=== PATIENT | male | born 1940 | race Native Hawaiian/Other Pacific Islander ===

== ENCOUNTER 2016-08-28 16:03 | Inpatient (IN) | payer MEDICARE, MEDICAID ==
[2016-08-28 17:57] LABS: BASO # 0.2 K/uL (0.0-0.2); BASO % 0.7 % (0.0-2.0); EOS # 1.3 K/uL (0.0-0.7); EOS % 5.7 % (0.0-4.0); HEMOGLOBIN 13.7 g/dL (12.0-18.0); LYMPH % 42.7 % (20.0-40.0); MEAN CELL VOLUME 90.6 fL (80.0-94.0); MEAN CORPUSCULAR HEMOGLOBIN 29.7 pg (27.0-31.0); MEAN CORPUSCULAR HGB CONC 32.8 g/dL (33.0-37.0); MEAN PLATELET VOLUME 8.6 fL (7.2-11.7); MONO # 0.5 K/uL (0.0-0.8); MONO % 2.1 % (0.0-10.0); NEUT # 11.4 K/uL (1.8-7.0); NEUT % 48.8 % (50.0-75.0); NRBC % 0.1 % (0.0-2.0); RBC 4.61 Mil/uL (4.40-5.90); RED CELL DISTRIBUTION WIDTH 14.4 % (11.5-14.5); WHITE BLOOD COUNT 23.4 K/uL (4.8-10.8)
[2016-08-28] MEDS ORDERED: DiphenhydrAMINE 50 mg/ml Inj IVP STA ×2 (17:57→18:52)
--- NOTE | 2016-08-28 17:58 | C.PDOC ---
History Of Present Illness Patient sent to ED for evaluation of extremely pruritic rash on torso & arms. As per PMD Dr. Ryan Finch, patient recently diagnosed with new onset lymphoma. He denies chest pain, SOB, abdominal pain, nausea/vomiting/diarrhea. Time Seen by Provider: 08/28/16 16:37 Chief Complaint (Nursing): Abnormal Skin Integrity History Per: Patient, Other (PMD) History/Exam Limitations: no limitations Onset/Duration Of Symptoms: Days Quality Of Symptoms: Itching Severity: Moderate Past Medical History Reviewed: Historical Data, Nursing Documentation, Vital Signs Vital Signs: Last Vital Signs Temp 97.6 F 09/03/16 00:00 Pulse 58 L 09/03/16 00:00 Resp 20 09/03/16 00:00 BP 134/75 09/03/16 00:00 Pulse Ox 95 09/03/16 11:05 Family History: States: Other Other Family History: noncontributory - Social History Hx Tobacco Use: No Hx Alcohol Use: No Hx Substance Use: No - Immunization History Hx Influenza Vaccination: No Hx Pneumococcal Vaccination: No Review Of Systems Except As Marked, All Systems Reviewed And Found Negative. Constitutional: Negative for: Fever, Chills Cardiovascular: Negative for: Chest Pain, Palpitations Respiratory: Negative for: Cough, Shortness of Breath Gastrointestinal: Negative for: Nausea, Vomiting, Abdominal Pain, Diarrhea Skin: Positive for: Rash Physical Exam - Physical Exam Appears: Well, Non-toxic, In Acute Distress (in mild distress, actively scratching ) Skin: Other (diffuse maculopapular rash on arms, torso, neck, blanching, nonvesicular) Oral Mucosa: Moist Cardiovascular: Rhythm Regular Respiratory: Normal Breath Sounds, No Rales, No Rhonchi, No Wheezing Gastrointestinal/Abdominal: Normal Exam, Bowel Sounds, Soft, No Tenderness Extremity: Bilateral: Atraumatic, Normal ROM Pulses: Left Dorsalis Pedis: Normal, Right Dorsalis Pedis: Normal Neurological/Psych: Oriented x3 ED Course And Treatment - Laboratory Results Result Diagrams: 09/03/16 07:03 09/03/16 07:03 ECG: Interpreted By Me, Viewed By Me (sinus bradycardia 56 bpm, RBBB, normal axis, no acute ST/T wave changes) ECG Interpretation: No Acute Changes O2 Sat by Pulse Oximetry: 95 (RA) Pulse Ox Interpretation: Normal - Radiology CXR: Interpreted by Me, Viewed By Me (no infiltrates/effusions, right sided mass /density?) Progress Note: Blood work, UA ordered and reviewed. Patient given IV solumedrol , IV Benadryl, IV pepcid. IV NS bolus given. - Physician Consult Information Physician Contacted: Elida Finch Outcome Of Conversation: Spoke with Dr. Ryan Finch, agrees with admission for new onset lymphoma, CLL, paraneoplastic rash. Would like Dr. Gray for oncology. Disposition - Disposition Disposition: HOSPITALIZED Disposition Time: 11:59 Condition: STABLE - Clinical Impression Clinical Impression: Lymphoma, CLL (chronic lymphocytic leukemia), Pruritic rash Decision To Admit - Pt Status Changed To: Hospital Disposition Of: Inpatient - Admit Certification Admit to Inpatient:: After my assessment, the patient will require hospitalization for at least two midnights. This is because of the severity of symptoms shown, intensity of services needed, and/or the medical risk in this patient being treated as an outpatient. - InPatient: Physician Admission Certification: I certify that this patient requires 2 or more midnights of care for the following reason:: see notes - . Bed Request Type: Regular Admitting Physician: Elida Finch Patient Diagnosis: Lymphoma, CLL (chronic lymphocytic leukemia), Pruritic rash
[2016-08-28] MEDS ORDERED: DiphenhydrAMINE 50 mg/ml Inj ONE ×2 (18:00→19:14)
[2016-08-28 18:05] LABS: INR 1.4; PROTHROMBIN TIME 15.8 SECONDS (9.7-12.2)
[2016-08-28 18:42] LABS: ALB/GLOB RATIO 1.1 (1.0-2.1); ALT/SGPT 24 U/L (21-72); AST/SGOT 33 U/L (17-59); BLOOD UREA NITROGEN 21 mg/dL (9-20); GFR AFRICAN-AMERICAN > 60; GFR NON-AFRICAN AMERICAN > 60
[2016-08-28 18:43] LABS: CALCIUM 7.3 mg/dl (8.6-10.4)
[2016-08-28 18:51] LABS: CK-MB 0.79 ng/mL (0.0-3.38)
[2016-08-28] MEDS ORDERED: Sodium Chloride 0.9% 500 ML IV ONE ×2 (18:54→19:14)
[2016-08-28 19:31] LABS: URINE BILIRUBIN NEGATIVE (NEGATIVE); URINE BLOOD 1+ (NEGATIVE); URINE CLARITY Clear (Clear); URINE COLOR Yellow (YELLOW); URINE GLUCOSE (UA) NORMAL (Normal); URINE LEUKOCYTE ESTERASE NEG Leu/uL (Negative); URINE NITRATE NEGATIVE (NEGATIVE); URINE PROTEIN 1+ mg/dL (NEGATIVE); URINE UROBILINOGEN NORMAL mg/dL (0.2-1.0)
--- NOTE | 2016-08-28 23:08 | CP.PCM.HP ---
History of Present Illness - History of Present Illness History of Present Illness: 76-year-old [place] male non-smoker non-EtOH abuser with history of CLL status post chemotherapy felt better history of hypertension came to the office 3 days 4 days ago with the tumor on his right side underwent an MRI which revealed possible lymphoma or some kind of malignancy the patient was brought to the hospital patient is too weak to walk cannot walk much patient is severe itching all over patient's WBC was 23 started on IV Rocephin and IV steroids patients to be seen by Dr. harrison and surgical consult with Dr. Aguilar for possible biopsy patient denies any fever denies any chills no nausea no vomiting spoke to the daughter the was at the bedside doctor on the phone Present on Admission - Present on Admission Any Indicators Present on Admission: No Past Patient History - Past Social History Smoking Status: Never Smoked - HEMATOLOGICAL/ONCOLOGICAL Hx Chemotherapy: Yes Hx Leukemia: Yes (CLL) - MUSCULOSKELETAL/RHEUMATOLOGICAL Hx Falls: No - PSYCHIATRIC Hx Substance Use: No - SURGICAL HISTORY Other/Comment: Patient states he had prostate [id number]. - ANESTHESIA Hx Anesthesia: Yes Hx Anesthesia Reactions: No Meds Allergies/Adverse Reactions: Allergies Allergy/AdvReac Type Severity Reaction Status Date / Time No Known Allergies Allergy Verified 08/28/16 19:19 Physical Exam - Constitutional Appears: Well - Head Exam Head Exam: ATRAUMATIC, NORMAL INSPECTION, NORMOCEPHALIC - Eye Exam Eye Exam: EOMI, Normal appearance, PERRL Pupil Exam: NORMAL ACCOMODATION, PERRL - ENT Exam ENT Exam: Mucous Membranes Moist, Normal Exam - Neck Exam Neck exam: Positive for: Normal Inspection - Respiratory Exam Respiratory Exam: Clear to Auscultation Bilateral, NORMAL BREATHING PATTERN - Cardiovascular Exam Cardiovascular Exam: REGULAR RHYTHM - GI/Abdominal Exam GI & Abdominal Exam: Normal Bowel Sounds, Soft. absent: Tenderness - Rectal Exam Rectal Exam: Deferred - Exam Exam: NORMAL INSPECTION - Neurological Exam Neurological exam: Oriented x3 Results - Vital Signs Recent Vital Signs: Last Vital Signs Temp 99.7 F H 08/28/16 20:32 Pulse 59 L 08/28/16 20:31 Resp 18 08/28/16 20:31 BP 104/60 08/28/16 20:31 Pulse Ox 98 08/28/16 20:31 - Labs Result Diagrams: 08/29/16 07:34 08/29/16 07:34 Labs: Laboratory Results - last 24 hr 08/28/16 19:18 Urine Color Yellow Urine Clarity Clear Urine pH 5.0 Ur Specific [place] 1.025 Urine Protein 1+ H Urine Glucose (UA) Normal Urine Ketones Negative Urine Blood 1+ H Urine Nitrate Negative Urine Bilirubin Negative Urine Urobilinogen Normal Ur Leukocyte Esterase Neg Urine WBC (Auto) < 1 Urine RBC (Auto) 3 Assessment & Plan (1) Acute frontal sinusitis Status: Acute (2) Chronic lymphocytic leukemia Status: Acute (3) Dehydration Status: Acute (4) Dyspnea Status: Acute (5) Facial abscess Status: Acute (6) Facial asymmetry Status: Acute (7) HTN (hypertension) Status: Acute (8) Leukopenia Status: Acute (9) Neutropenic sepsis Status: Acute (10) Pneumonia Status: Acute (11) Submandibular lymphadenitis Status: Acute (12) Submandibular lymphadenopathy Status: Acute - Assessment and Plan (Free Text) Plan: IV Rocephin Steroid Protonix Lovenox Dr. Isaac Rizzo
[2016-08-29 08:04] LABS: BASO % 0.2 % (0.0-2.0); EOS # 0.5 K/uL (0.0-0.7); EOS % 2.2 % (0.0-4.0); HEMOGLOBIN 13.1 g/dL (12.0-18.0); LYMPH # 12.4 K/uL (1.0-4.3); LYMPH % 56.1 % (20.0-40.0); MEAN CELL VOLUME 89.2 fL (80.0-94.0); MEAN CORPUSCULAR HEMOGLOBIN 29.6 pg (27.0-31.0); MEAN CORPUSCULAR HGB CONC 33.2 g/dL (33.0-37.0); MEAN PLATELET VOLUME 9.2 fL (7.2-11.7); MONO # 0.2 K/uL (0.0-0.8); MONO % 0.9 % (0.0-10.0); NEUT % 40.6 % (50.0-75.0); NRBC % 0.1 % (0.0-2.0); RBC 4.41 Mil/uL (4.40-5.90); RED CELL DISTRIBUTION WIDTH 14.5 % (11.5-14.5); WHITE BLOOD COUNT 22.2 K/uL (4.8-10.8)
[2016-08-29 08:07] LABS: ALBUMIN 3.2 g/dL (3.5-5.0)
[2016-08-29 08:10] LABS: ALB/GLOB RATIO 1.1 (1.0-2.1); AST/SGOT 25 U/L (17-59); BLOOD UREA NITROGEN 24 mg/dL (9-20); GFR AFRICAN-AMERICAN > 60; GFR NON-AFRICAN AMERICAN > 60
[2016-08-29 08:11] LABS: ALT/SGPT 34 U/L (21-72); CALCIUM 8.2 mg/dl (8.6-10.4)
--- NOTE | 2016-08-29 08:54 | RAD ---
PROCEDURE: CHEST RADIOGRAPH, 1 VIEW HISTORY: leukocytosis COMPARISON: 06/13/2015 FINDINGS: LUNGS: Mild venous congestion. Right hilar prominence. Small nodular density projecting over the right upper to mid lung zone may represent confluence of shadows with ribs and vessels. Right paratracheal prominence may represent prominent vasculature. PLEURA: No pneumothorax or pleural fluid seen. CARDIOVASCULAR: Normal. OSSEOUS STRUCTURES: No significant abnormalities. VISUALIZED UPPER ABDOMEN: Normal. OTHER FINDINGS: None. IMPRESSION: Mild venous congestion. Right hilar prominence. Small nodular density projecting over the right upper to mid lung zone may represent confluence of shadows with ribs and vessels. Clinical correlation and/or repeat x-ray in a 6 month interval may be helpful. Right paratracheal prominence may represent prominent vasculature.
--- NOTE | 2016-08-29 10:21 | CP.PCM.CON ---
History of Present Illness - History of Present Illness History of Present Illness: Covering Dr. Gray 76 year old male with a history of CLL on chemotherapy with Dr. Gray (last treated last week), admitted with rash, found to have lymphadenopathy, chest wall mass, and pulmonary nodules. The patient admits to weakness. He denies shortness of breath and chest pain. Past medical history: HTN, CLL Past surgical history: None Family history: Denies hematologic and oncologic problems Social history: Denies tobacco, alcohol, and illicit drug use. Allergies: NKA Review of systems: All remaining review of systems including HEENT, cardiovascular, respiratory, gastrointestinal, genitourinary, musculoskeletal, dermatologic, neurologic, and psychiatric are negative unless mentioned in the HPI. Past Patient History - Past Medical History & Family History Past Medical History?: No - Past Social History Smoking Status: Never Smoked - HEMATOLOGICAL/ONCOLOGICAL Hx Chemotherapy: Yes Hx Leukemia: Yes (CLL) - MUSCULOSKELETAL/RHEUMATOLOGICAL Hx Falls: No - GENITOURINARY/GYNECOLOGICAL Hx Prostate Problems: No - PSYCHIATRIC Hx Psychophysiologic Disorder: No Hx Substance Use: No - SURGICAL HISTORY Hx Surgeries: Yes Other/Comment: Patient states he had prostate [id number]. - ANESTHESIA Hx Anesthesia: Yes Hx Anesthesia Reactions: No Hx Malignant Hyperthermia: No Has any member of the family had a problem w/ anesthesia?: No Meds Allergies/Adverse Reactions: Allergies Allergy/AdvReac Type Severity Reaction Status Date / Time No Known Allergies Allergy Verified 08/28/16 19:19 - Medications Medications: Current Medications Diphenhydramine HCl (Benadryl) 25 mg PO Q6 [facility] Last Admin: 08/29/16 06:04 Dose: 25 mg Heparin Sodium (Porcine) (Heparin) 5,000 units SC Q12 [facility] Ceftriaxone Sodium 1 gm/ (Sodium Chloride) 100 mls @ 100 mls/hr IVPB DAILY [facility] Physical Exam - Head Exam Head Exam: ATRAUMATIC - Eye Exam Eye Exam: Normal appearance - ENT Exam ENT Exam: Mucous Membranes Dry - Respiratory Exam Respiratory Exam: NORMAL BREATHING PATTERN - Cardiovascular Exam Cardiovascular Exam: +S1, +S2 - GI/Abdominal Exam GI & Abdominal Exam: Normal Bowel Sounds - Extremities Exam Extremities exam: Positive for: normal inspection Results - Vital Signs Recent Vital Signs: Last Vital Signs Temp 97.4 F L 08/29/16 08:15 Pulse 51 L 08/29/16 08:15 Resp 20 08/29/16 08:15 BP 101/61 08/29/16 08:15 Pulse Ox 100 08/29/16 08:15 - Labs Result Diagrams: 08/29/16 07:34 08/29/16 07:34 Labs: Laboratory Results - last 24 hr 08/28/16 08/29/16 08/29/16 19:18 07:34 07:34 WBC 22.2 H RBC 4.41 Hgb 13.1 Hct 39.4 MCV 89.2 MCH 29.6 MCHC 33.2 RDW 14.5 Plt Count 144 MPV 9.2 Neut % (Auto) 40.6 L Lymph % (Auto) 56.1 H [place] % (Auto) 0.9 Eos % (Auto) 2.2 Baso % (Auto) 0.2 Neut # 9.0 H Lymph # 12.4 H [place] # 0.2 Eos # 0.5 Baso # 0.0 Sodium 135 Potassium 4.4 Chloride 101 Carbon Dioxide 23 Anion Gap 16 BUN 24 H Creatinine 1.1 Est GFR ( Amer) > 60 Est GFR (Non-Af Amer) > 60 Random Glucose 171 H Calcium 8.2 L Total Bilirubin 0.9 AST 25 ALT 34 Alkaline Phosphatase 67 Total Protein 6.3 Albumin 3.2 L Globulin 3.0 Albumin/Globulin Ratio 1.1 Urine Color Yellow Urine Clarity Clear Urine pH 5.0 Ur Specific [place] 1.025 Urine Protein 1+ H Urine Glucose (UA) Normal Urine Ketones Negative Urine Blood 1+ H Urine Nitrate Negative Urine Bilirubin Negative Urine Urobilinogen Normal Ur Leukocyte Esterase Neg Urine WBC (Auto) < 1 Urine RBC (Auto) 3 Assessment & Plan (1) Chronic lymphocytic leukemia Assessment and Plan: Rash, lymphadenopathy, and mass likely related to CLL surgical evaluation for biopsy ?Richters transformation can start steroids post biopsy; suspect paraneoplastic rash from CLL outpatient f/u with Dr. Gray for treatment Status: Acute (2) Leukocytosis Assessment and Plan: with lymphocytosis secondary to CLL Status: Acute (3) Anemia Assessment and Plan: mild likely secondary to CLL and recent chemo Thank you for this interesting consult. Status: Acute
--- NOTE | 2016-08-29 11:13 | CP.PCM.PN ---
Subjective - Date & Time of Evaluation Date of Evaluation: 08/29/16 Time of Evaluation: 08:40 - Subjective Subjective: clinically same Objective - Vital Signs/Intake and Output Vital Signs (last 24 hours): Temp Pulse Resp BP Pulse Ox 97.4 F L 51 L 20 101/61 100 08/29/16 08:15 08/29/16 08:15 08/29/16 08:15 08/29/16 08:15 08/29/16 08:15 Intake and Output: 08/29/16 08/29/16 06:59 18:59 Intake Total 150 Balance 150 - Medications Medications: Current Medications Diphenhydramine HCl (Benadryl) 25 mg PO Q6 [facility] Last Admin: 08/29/16 06:04 Dose: 25 mg Heparin Sodium (Porcine) (Heparin) 5,000 units SC Q12 [facility] Last Admin: 08/29/16 10:53 Dose: 5,000 units Ceftriaxone Sodium 1 gm/ (Sodium Chloride) 100 mls @ 100 mls/hr IVPB DAILY [facility] Last Admin: 08/29/16 10:53 Dose: 100 mls/hr - Labs Labs: 08/29/16 07:34 08/29/16 07:34 PT 15.8 SECONDS (9.7-12.2) H 08/28/16 17:54 INR 1.4 08/28/16 17:54 APTT 28 SECONDS (21-34) 08/28/16 17:54 - Constitutional Appears: Well - Head Exam Head Exam: ATRAUMATIC, NORMAL INSPECTION, NORMOCEPHALIC - Eye Exam Eye Exam: EOMI, Normal appearance, PERRL Pupil Exam: NORMAL ACCOMODATION, PERRL - ENT Exam ENT Exam: Mucous Membranes Moist, Normal Exam - Neck Exam Neck Exam: Full ROM, Normal Inspection. absent: Lymphadenopathy - Respiratory Exam Respiratory Exam: Decreased Breath Sounds - Cardiovascular Exam Cardiovascular Exam: REGULAR RHYTHM, +S1, +S2 - GI/Abdominal Exam GI & Abdominal Exam: Soft, Diminished Bowel Sounds - Rectal Exam Rectal Exam: Deferred
[2016-08-29] MEDS ORDERED: Iohexol 240 (50 ml) PO ONE (15:15)
--- NOTE | 2016-08-29 16:00 | CP.PCM.CON ---
<Hong Ortiz - Last Filed: 08/29/16 21:12> History of Present Illness - History of Present Illness History of Present Illness: Gen Sx: Dr Rizzo Pt is a 76M with hx of CLL who presented to ED for total body rash. Pt found to have leukocytosis and there is concern for lymphoma. Pt has several enlarged lymph nodes in the neck and inguinal area. No imaging performed on this admission. Oncology is on board. Pt is more concerned with rash at this time and the constant itching. Surgery was consulted for lymph node biopsy Review of Systems - Review of Systems Systems not reviewed;Unavailable: Language Barrier Past Patient History - Past Medical History & Family History Past Medical History?: No - Past Social History Smoking Status: Never Smoked - HEMATOLOGICAL/ONCOLOGICAL Hx Chemotherapy: Yes Hx Leukemia: Yes (CLL) - MUSCULOSKELETAL/RHEUMATOLOGICAL Hx Falls: No - GENITOURINARY/GYNECOLOGICAL Hx Prostate Problems: No - PSYCHIATRIC Hx Psychophysiologic Disorder: No Hx Substance Use: No - SURGICAL HISTORY Hx Surgeries: Yes Other/Comment: Patient states he had prostate [id number]. - ANESTHESIA Hx Anesthesia: Yes Hx Anesthesia Reactions: No Hx Malignant Hyperthermia: No Has any member of the family had a problem w/ anesthesia?: No Meds Allergies/Adverse Reactions: Allergies Allergy/AdvReac Type Severity Reaction Status Date / Time No Known Allergies Allergy Verified 08/28/16 19:19 - Medications Medications: Current Medications Diphenhydramine HCl (Benadryl) 25 mg PO Q6 [facility] Last Admin: 08/29/16 12:19 Dose: 25 mg Heparin Sodium (Porcine) (Heparin) 5,000 units SC Q12 [facility] Last Admin: 08/29/16 10:53 Dose: 5,000 units Ceftriaxone Sodium 1 gm/ (Sodium Chloride) 100 mls @ 100 mls/hr IVPB DAILY [facility] Last Admin: 08/29/16 10:53 Dose: 100 mls/hr Physical Exam - Constitutional Appears: Non-toxic - Respiratory Exam Respiratory Exam: absent: Accessory Muscle Use, Respiratory Distress - Cardiovascular Exam Cardiovascular Exam: REGULAR RHYTHM. absent: Tachycardia - GI/Abdominal Exam GI & Abdominal Exam: Soft. absent: Tenderness - Skin Additional comments: diffuse rash on extensor surfaces of arms and entire torso Results - Vital Signs Recent Vital Signs: Last Vital Signs Temp 97.4 F L 08/29/16 08:15 Pulse 51 L 08/29/16 08:15 Resp 20 08/29/16 08:15 BP 101/61 08/29/16 08:15 Pulse Ox 100 08/29/16 08:15 - Labs Result Diagrams: 08/29/16 07:34 08/29/16 07:34 Labs: Laboratory Results - last 24 hr 08/28/16 08/29/16 08/29/16 19:18 07:34 07:34 WBC 22.2 H RBC 4.41 Hgb 13.1 Hct 39.4 MCV 89.2 MCH 29.6 MCHC 33.2 RDW 14.5 Plt Count 144 MPV 9.2 Neut % (Auto) 40.6 L Lymph % (Auto) 56.1 H [place] % (Auto) 0.9 Eos % (Auto) 2.2 Baso % (Auto) 0.2 Neut # 9.0 H Lymph # 12.4 H [place] # 0.2 Eos # 0.5 Baso # 0.0 Differential Comment Sodium 135 Potassium 4.4 Chloride 101 Carbon Dioxide 23 Anion Gap 16 BUN 24 H Creatinine 1.1 Est GFR ( Amer) > 60 Est GFR (Non-Af Amer) > 60 Random Glucose 171 H Calcium 8.2 L Total Bilirubin 0.9 AST 25 ALT 34 Alkaline Phosphatase 67 Total Protein 6.3 Albumin 3.2 L Globulin 3.0 Albumin/Globulin Ratio 1.1 Urine Color Yellow Urine Clarity Clear Urine pH 5.0 Ur Specific [place] 1.025 Urine Protein 1+ H Urine Glucose (UA) Normal Urine Ketones Negative Urine Blood 1+ H Urine Nitrate Negative Urine Bilirubin Negative Urine Urobilinogen Normal Ur Leukocyte Esterase Neg Urine WBC (Auto) < 1 Urine RBC (Auto) 3 Assessment & Plan - Assessment and Plan (Free Text) Assessment: 76M with questionable lymphoma; sx consulted for lymph node biopsy Plan: need for lymph node biopsy not emergent at this time can perform biopsy on thursday if pt still in house if not please have follow up as outpatient with Dr Rizzo d/w Dr So Ortiz, PGY2 - Date & Time Date: 08/29/16 Time: 21:15 <Bienvenido Rizzo - Last Filed: 09/07/16 17:16> Results - Vital Signs Recent Vital Signs: Last Vital Signs Temp 98.1 F 09/04/16 15:00 Pulse 66 09/04/16 15:00 Resp 20 09/04/16 15:00 BP 138/77 09/04/16 15:00 Pulse Ox 97 09/04/16 15:00 - Labs Result Diagrams: 09/04/16 07:51 09/04/16 07:51 Attending/Attestation - Attestation I have personally seen and examined this patient.: Yes I have fully participated in the care of the patient.: Yes I have reviewed all pertinent clinical information: Yes Notes (Text): 09/07/16 17:14 Pt was seen and examined at bedside on 09/01/16 Agree with above note and assessment Pt with Generalized Lymphadenopathy with skin rash OR for Lymph node biopsy Oncology consult. Consent Plan d/w pt and Primary team in detail Risk and benefit explained in detail.
[2016-08-29] MEDS ORDERED: Iohexol 350mg/ml 100 ML ONE (17:45)
--- NOTE | 2016-08-29 19:59 | CT ---
EXAM: CT Abdomen and Pelvis With Intravenous Contrast CLINICAL HISTORY: 76 years old, male; Condition or disease; Cancer; Other: Lymphoma; Lung condition and disease; Pneumonia; Additional info: HX cll TECHNIQUE: Axial computed tomography images of the abdomen and pelvis with intravenous contrast. This CT exam was performed using one or more of the following dose reduction techniques: automated exposure control, adjustment of the mA and/or kV according to patient size, and/or use of iterative reconstruction technique. Coronal and sagittal reformatted images were created and reviewed. CONTRAST: 100 mL of omnipaque 350 administered intravenously. COMPARISON: No relevant prior studies available. FINDINGS: Lower thorax: Hypoventilatory changes are noted at the lung bases ABDOMEN: Liver: Unremarkable. No mass. Gallbladder and bile ducts: Unremarkable. No calcified stones. No ductal dilation. Pancreas: Unremarkable. No mass. No ductal dilation. Spleen: Spleen measures 13.1 cm in cranialcaudal span. Adrenals: Unremarkable. No mass. Kidneys and ureters: Unremarkable. No solid mass. No hydronephrosis. Stomach and bowel: Unremarkable. No obstruction. No mucosal thickening. Appendix: No findings to suggest acute appendicitis. PELVIS: Bladder: Unremarkable. No mass. Reproductive: The prostate measures 3.5 x 5.6 x 5.4 cm. Prostatic calcifications are present. ABDOMEN and PELVIS: Intraperitoneal space: Unremarkable. No free air. No significant fluid collection. Retroperitoneal space: Lymph nodes are noted in the retroperitoneum. The largest is at the level of the left renal vein measuring 2.5 x 1.8 x 3.7 cm No significant fluid collection. Bones/joints: There is a focal expansion of the right ninth rib laterally There is deformity noted of the posterior aspect of the right ninth, 10th and 11th ribs which suggests previous fracture No dislocation. Soft tissues: Unremarkable. Vasculature: Unremarkable. No abdominal aortic aneurysm. Lymph nodes: There are multiple enlarged para-aortic lymph nodes. There are mesenteric lymph nodes noted inferior to the pancreatic head. External iliac adenopathy is present bilaterally. The latonya mass on the left measures 1.9 x 1.4 x 1.8 cm Inguinal lymph nodes are noted bilaterally. They measure less than 1 cm in short axis. IMPRESSION: 1. Retroperitoneal and pelvic adenopathy in this patient with known CLL. 2. Splenomegaly likely related to patient's diagnosis of CLL 3. Old rib fractures of the right posterior ninth 10th and 11th ribs EXAM: CT Chest With Intravenous Contrast CLINICAL HISTORY: 76 years old, male; Condition or disease; Cancer; Other: Lymphoma; Lung condition and disease; Pneumonia; Additional info: HX cll TECHNIQUE: Axial computed tomography images of the chest with intravenous contrast. This CT exam was performed using one or more of the following dose reduction techniques: automated exposure control, adjustment of the mA and/or kV according to patient size, and/or use of iterative reconstruction technique. Coronal and sagittal reformatted images were created and reviewed. CONTRAST: 100 mL of omnipaque 350 administered intravenously. EXAM DATE/TIME: Exam ordered 08/29/2016 2:34 PM COMPARISON: CR - CHEST TWO VIEWS (PA/LAT) 06/13/2015 11:55:57 AM FINDINGS: Lungs: There is a 7 mm pulmonary nodule in the apical segment of the right upper lobe (series 4 image 29). A pleural based nodule is noted in the apical segment of the left upper lobe measuring 5 mm (series 4 image 29). A 4 mm pulmonary nodules noted in the posterior segment of the right upper lobe (series 4 image 45). A groundglass nodular density is noted in the anterior segment of the left upper lobe inferiorly measuring 3.5 mm (series 4 image 48). A 3 mm groundglass density is noted in the anterior segment of the right upper lobe (series 4 image 51). A 4 mm nodule is noted in the anterior segment of the left upper lobe inferiorly (series 4 image 51). 2 pulmonary nodules are noted in the superior segment of the left lower lobe measuring 5 and 6 mm respectively (series 4 image 52 and 53). Coarse linear opacities are noted in the dependent portion of both lungs reflecting discoid atelectasis or scar. Pleural space: Unremarkable. No pneumothorax. No significant effusion. Heart: Unremarkable. No cardiomegaly. No significant pericardial effusion. Bones/joints: Unremarkable. No acute fracture. No dislocation. Soft tissues: Unremarkable. Vasculature: Unremarkable. No thoracic aortic aneurysm. Lymph nodes: Subcentimeter lymph nodes are noted in the prevascular space and the AP window. Enlarged subpectoral and axillary lymph nodes are noted bilaterally.. At least 11 lymph nodes are noted on the right with the largest measuring 1.4 cm in short axis. At least least 14 lymph nodes are seen in the left with the largest measuring 9 mm in short axis. IMPRESSION: 1. Multiple pulmonary nodules. An optional follow-up CT at 12 months could be performed due to the high risk of malignancy. If unchanged, no further follow-up is necessary. 2. Healed fractures of the right posterior ninth, 10th and 11th ribs. 3. Focal expansion suggested of the right ninth rib laterally. This could be related to old trauma or to the patient's diagnosis of CLL. 4. Chest wall, axillary and mediastinal adenopathy likely related to patient's diagnosis of CLL Images were attached to this report and are available at [email or web address]
[2016-08-29] MEDS: MethylPREDNISolone 40 mg Vial IV SCH (21:06)
[2016-08-30] MEDS: MethylPREDNISolone 40 mg Vial IV SCH ×2 (05:25→22:16)
[2016-08-30 06:31] LABS: BASO % 0.2 % (0.0-2.0); EOS # 2.2 K/uL (0.0-0.7); EOS % 10.3 % (0.0-4.0); HEMOGLOBIN 12.4 g/dL (12.0-18.0); LYMPH # 8.3 K/uL (1.0-4.3); LYMPH % 38.6 % (20.0-40.0); MEAN CELL VOLUME 88.1 fL (80.0-94.0); MEAN CORPUSCULAR HEMOGLOBIN 29.5 pg (27.0-31.0); MEAN CORPUSCULAR HGB CONC 33.5 g/dL (33.0-37.0); MEAN PLATELET VOLUME 8.7 fL (7.2-11.7); MONO # 0.5 K/uL (0.0-0.8); MONO % 2.5 % (0.0-10.0); NEUT # 10.4 K/uL (1.8-7.0); NEUT % 48.4 % (50.0-75.0); RBC 4.19 Mil/uL (4.40-5.90); RED CELL DISTRIBUTION WIDTH 14.8 % (11.5-14.5); WHITE BLOOD COUNT 21.5 K/uL (4.8-10.8)
[2016-08-30 07:35] LABS: ALBUMIN 3.1 g/dL (3.5-5.0)
[2016-08-30 07:38] LABS: AST/SGOT 35 U/L (17-59); GFR AFRICAN-AMERICAN > 60; GFR NON-AFRICAN AMERICAN > 60
[2016-08-30 07:39] LABS: ALT/SGPT 44 U/L (21-72); BLOOD UREA NITROGEN 19 mg/dL (9-20); CALCIUM 8.2 mg/dl (8.6-10.4)
[2016-08-30 08:12] LABS: ALB/GLOB RATIO 1.1 (1.0-2.1)
--- NOTE | 2016-08-30 20:50 | CP.PCM.PN ---
Subjective - Date & Time of Evaluation Date of Evaluation: 08/30/16 Objective - Vital Signs/Intake and Output Vital Signs (last 24 hours): Temp Pulse Resp BP Pulse Ox 99.6 F 79 20 109/64 95 08/30/16 08:36 08/30/16 08:36 08/30/16 08:36 08/30/16 08:36 08/30/16 08:36 - Medications Medications: Current Medications Diphenhydramine HCl (Benadryl) 50 mg PO Q6 [facility]PLAC[facility] BY [facility] Last Admin: 08/30/16 12:53 Dose: 50 mg Heparin Sodium (Porcine) (Heparin) 5,000 units SC Q12 [facility] Last Admin: 08/30/16 09:58 Dose: 5,000 units Methylprednisolone (Solu-Medrol) 40 mg IV Q8 REPLACED BY [facility] Last Admin: 08/30/16 05:25 Dose: 40 mg Montelukast Sodium (Singulair) 10 mg PO HS [facility] - Labs Labs: 08/30/16 06:18 08/30/16 06:18 PT 15.8 SECONDS (9.7-12.2) H 08/28/16 17:54 INR 1.4 08/28/16 17:54 APTT 28 SECONDS (21-34) 08/28/16 17:54 Assessment and Plan (1) Acute frontal sinusitis Status: Acute (2) Chronic lymphocytic leukemia Status: Acute (3) Dehydration Status: Acute (4) Dyspnea Status: Acute (5) Facial abscess Status: Acute (6) Facial asymmetry Status: Acute (7) HTN (hypertension) Status: Acute (8) Leukopenia Status: Acute (9) Neutropenic sepsis Status: Acute (10) Pneumonia Status: Acute (11) Submandibular lymphadenitis Status: Acute (12) Submandibular lymphadenopathy Status: Acute
[2016-08-31] MEDS: MethylPREDNISolone 40 mg Vial IV SCH ×3 (05:34→21:24)
--- NOTE | 2016-08-31 07:01 | CP.PCM.PN ---
Subjective - Date & Time of Evaluation Date of Evaluation: 08/31/16 Time of Evaluation: 08:40 - Subjective Subjective: clinically same Objective - Vital Signs/Intake and Output Vital Signs (last 24 hours): Temp Pulse Resp BP Pulse Ox 98.2 F 73 20 138/82 95 08/31/16 00:00 08/31/16 00:00 08/31/16 00:00 08/31/16 00:00 08/31/16 00:00 Intake and Output: 08/31/16 08/31/16 06:59 18:59 Intake Total 100 Balance 100 - Medications Medications: Current Medications Diphenhydramine HCl (Benadryl) 50 mg PO Q6 [facility] Last Admin: 08/31/16 05:34 Dose: 50 mg Heparin Sodium (Porcine) (Heparin) 5,000 units SC Q12 [facility] Last Admin: 08/30/16 22:17 Dose: 5,000 units Methylprednisolone (Solu-Medrol) 40 mg IV Q8 [facility] Last Admin: 08/31/16 05:34 Dose: 40 mg Montelukast Sodium (Singulair) 10 mg PO HS [facility] Last Admin: 08/30/16 22:17 Dose: 10 mg - Labs Labs: 08/30/16 06:18 08/30/16 06:18 PT 15.8 SECONDS (9.7-12.2) H 08/28/16 17:54 INR 1.4 08/28/16 17:54 APTT 28 SECONDS (21-34) 08/28/16 17:54 - Constitutional Appears: Well - Head Exam Head Exam: ATRAUMATIC, NORMAL INSPECTION, NORMOCEPHALIC - Eye Exam Eye Exam: EOMI, Normal appearance, PERRL Pupil Exam: NORMAL ACCOMODATION, PERRL - ENT Exam ENT Exam: Mucous Membranes Moist, Normal Exam - Neck Exam Neck Exam: Full ROM, Normal Inspection. absent: Lymphadenopathy - Respiratory Exam Respiratory Exam: Decreased Breath Sounds - Cardiovascular Exam Cardiovascular Exam: REGULAR RHYTHM, +S1, +S2 - GI/Abdominal Exam GI & Abdominal Exam: Soft, Diminished Bowel Sounds - Rectal Exam Rectal Exam: Deferred Assessment and Plan (1) Acute frontal sinusitis Status: Acute (2) Chronic lymphocytic leukemia Status: Acute (3) Dehydration Status: Acute (4) Dyspnea Status: Acute (5) Facial abscess Status: Acute (6) Facial asymmetry Status: Acute (7) HTN (hypertension) Status: Acute (8) Leukopenia Status: Acute (9) Neutropenic sepsis Status: Acute (10) Pneumonia Status: Acute (11) Submandibular lymphadenitis Status: Acute (12) Submandibular lymphadenopathy Status: Acute
[2016-09-01] MEDS: MethylPREDNISolone 40 mg Vial IV SCH ×3 (05:20→21:57)
--- NOTE | 2016-09-01 11:57 | CARD ---
APPROVED REPORT EKG Measurement Heart [id number] <Conclusion> Sinus bradycardia with premature atrial complexes Incomplete right bundle branch block Borderline ECG
--- NOTE | 2016-09-01 13:40 | CP.PCM.PN ---
Subjective - Date & Time of Evaluation Date of Evaluation: 09/01/16 Time of Evaluation: 13:40 Objective - Vital Signs/Intake and Output Vital Signs (last 24 hours): Temp Pulse Resp BP Pulse Ox 97.6 F 54 L 20 121/51 L 96 09/01/16 08:32 09/01/16 08:32 09/01/16 08:32 09/01/16 08:32 09/01/16 08:32 Intake and Output: 09/01/16 09/01/16 06:59 18:59 Intake Total 240 Balance 240 - Medications Medications: Current Medications Diphenhydramine HCl (Benadryl) 50 mg PO Q6 [facility] Last Admin: 09/01/16 11:57 Dose: 50 mg Methylprednisolone (Solu-Medrol) 40 mg IV Q8 [facility] Last Admin: 09/01/16 13:28 Dose: 40 mg Montelukast Sodium (Singulair) 10 mg PO HS [facility] Last Admin: 08/31/16 21:23 Dose: 10 mg - Labs Labs: 08/30/16 06:18 08/30/16 06:18 PT 15.8 SECONDS (9.7-12.2) H 08/28/16 17:54 INR 1.4 08/28/16 17:54 APTT 28 SECONDS (21-34) 08/28/16 17:54
--- NOTE | 2016-09-01 14:11 | CP.PCM.PN ---
<White,Laura-Alphonse - Last Filed: 09/01/16 14:09> Subjective - Date & Time of Evaluation Date of Evaluation: 09/01/16 Time of Evaluation: 14:09 - Subjective Subjective: Surgery: Dr. Rizzo Patient still with rash on forearms. Discussed lymph node biopsy with family and patient. Agreeable to biopsy on Thursday. Objective - Vital Signs/Intake and Output Vital Signs (last 24 hours): Temp Pulse Resp BP Pulse Ox 97.6 F 54 L 20 121/51 L 96 09/01/16 08:32 09/01/16 08:32 09/01/16 08:32 09/01/16 08:32 09/01/16 08:32 Intake and Output: 09/01/16 09/01/16 06:59 18:59 Intake Total 240 Balance 240 - Medications Medications: Current Medications Diphenhydramine HCl (Benadryl) 50 mg PO Q6 [facility] Last Admin: 09/01/16 11:57 Dose: 50 mg Methylprednisolone (Solu-Medrol) 40 mg IV Q8 [facility] Last Admin: 09/01/16 13:28 Dose: 40 mg Montelukast Sodium (Singulair) 10 mg PO HS [facility] Last Admin: 08/31/16 21:23 Dose: 10 mg - Labs Labs: 08/30/16 06:18 08/30/16 06:18 PT 15.8 SECONDS (9.7-12.2) H 08/28/16 17:54 INR 1.4 08/28/16 17:54 APTT 28 SECONDS (21-34) 08/28/16 17:54 - Constitutional Appears: Non-toxic, No Acute Distress, Chronically Ill - Head Exam Head Exam: ATRAUMATIC, NORMOCEPHALIC - Eye Exam Eye Exam: EOMI - ENT Exam ENT Exam: Mucous Membranes Moist - Neck Exam Neck Exam: Lymphadenopathy (left side prominent ) - Respiratory Exam Respiratory Exam: NORMAL BREATHING PATTERN. absent: Respiratory Distress - Cardiovascular Exam Cardiovascular Exam: REGULAR RHYTHM. 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 Rizzo [facility] PGY3 <Bienvenido Rizzo - Last Filed: 09/07/16 17:27> Objective - Vital Signs/Intake and Output Vital Signs (last 24 hours): Temp Pulse Resp BP Pulse Ox 98.1 F 66 20 138/77 97 09/04/16 15:00 09/04/16 15:00 09/04/16 15:00 09/04/16 15:00 09/04/16 15:00 - Labs Labs: 09/04/16 07:51 09/04/16 07:51 PT 11.1 SECONDS (9.7-12.2) 09/03/16 07:03 INR 1.0 09/03/16 07:03 APTT 23 SECONDS (21-34) 09/03/16 07:03 Attending/Attestation - Attestation I have personally seen and examined this patient.: Yes I have fully participated in the care of the patient.: Yes I have reviewed all pertinent clinical information, including history, physical exam and plan: Yes Notes (Text): 09/07/16 17:26 Pt was seen and examined at bedside on 09/01/16 Agree with above note and assessment Pt with Generalized Lymphadenopathy and Skin rash OR for Lymph node biopsy on thursday Consent NPO, IVF Plan d.w pt and Primary team in detail Risk and benefit explained in detail.
[2016-09-01 14:35] LABS: BASO # 0.2 K/uL (0.0-0.2); BASO % 0.7 % (0.0-2.0); EOS # 0.1 K/uL (0.0-0.7); EOS % 0.3 % (0.0-4.0); HEMOGLOBIN 13.6 g/dL (12.0-18.0); LYMPH # 16.7 K/uL (1.0-4.3); LYMPH % 54.5 % (20.0-40.0); MEAN CELL VOLUME 89.9 fL (80.0-94.0); MEAN CORPUSCULAR HEMOGLOBIN 28.9 pg (27.0-31.0); MEAN CORPUSCULAR HGB CONC 32.2 g/dL (33.0-37.0); MEAN PLATELET VOLUME 9.2 fL (7.2-11.7); MONO # 0.3 K/uL (0.0-0.8); MONO % 0.9 % (0.0-10.0); NEUT # 13.4 K/uL (1.8-7.0); NEUT % 43.6 % (50.0-75.0); NRBC % 0.1 % (0.0-2.0); RBC 4.69 Mil/uL (4.40-5.90); RED CELL DISTRIBUTION WIDTH 14.3 % (11.5-14.5); WHITE BLOOD COUNT 30.6 K/uL (4.8-10.8)
[2016-09-01 14:37] LABS: ALBUMIN 3.7 g/dL (3.5-5.0)
[2016-09-01 14:40] LABS: ALB/GLOB RATIO 1.1 (1.0-2.1); AST/SGOT 33 U/L (17-59); BLOOD UREA NITROGEN 22 mg/dL (9-20); GFR AFRICAN-AMERICAN > 60; GFR NON-AFRICAN AMERICAN > 60
[2016-09-01 14:41] LABS: ALT/SGPT 54 U/L (21-72); CALCIUM 8.4 mg/dl (8.6-10.4)
[2016-09-02] MEDS: MethylPREDNISolone 40 mg Vial IV SCH ×3 (05:28→21:39)
--- NOTE | 2016-09-02 13:22 | CP.PCM.PN ---
Subjective - Date & Time of Evaluation Date of Evaluation: 09/02/16 Time of Evaluation: 13:22 Objective - Vital Signs/Intake and Output Vital Signs (last 24 hours): Temp Pulse Resp BP Pulse Ox 98.1 F 58 L 20 128/72 98 09/02/16 00:00 09/02/16 00:00 09/02/16 00:00 09/02/16 00:00 09/02/16 00:00 - Medications Medications: Current Medications Diphenhydramine HCl (Benadryl) 50 mg PO Q6 [facility] Last Admin: 09/02/16 05:29 Dose: 50 mg Methylprednisolone (Solu-Medrol) 40 mg IV Q8 [facility] Last Admin: 09/02/16 05:28 Dose: 40 mg Montelukast Sodium (Singulair) 10 mg PO HS [facility] Last Admin: 09/01/16 21:57 Dose: 10 mg - Labs Labs: 09/01/16 14:18 09/01/16 14:18 PT 15.8 SECONDS (9.7-12.2) H 08/28/16 17:54 INR 1.4 08/28/16 17:54 APTT 28 SECONDS (21-34) 08/28/16 17:54
--- NOTE | 2016-09-02 13:46 | CP.PCM.PN ---
Subjective - Date & Time of Evaluation Date of Evaluation: 09/02/16 Time of Evaluation: 13:44 - Subjective Subjective: Surgery: Dr. Rizzo Patient doing well. Per nursing, no acute events overnight. Discussion with family and patient yesterday at bedside. All aware of lymph node biopsy on Thu. Objective - Vital Signs/Intake and Output Vital Signs (last 24 hours): Temp Pulse Resp BP Pulse Ox 98.1 F 58 L 20 128/72 98 09/02/16 00:00 09/02/16 00:00 09/02/16 00:00 09/02/16 00:00 09/02/16 00:00 - Medications Medications: Current Medications Diphenhydramine HCl (Benadryl) 50 mg PO Q6 [facility] Last Admin: 09/02/16 05:29 Dose: 50 mg Methylprednisolone (Solu-Medrol) 40 mg IV Q8 [facility] Last Admin: 09/02/16 05:28 Dose: 40 mg Montelukast Sodium (Singulair) 10 mg PO HS [facility] Last Admin: 09/01/16 21:57 Dose: 10 mg - Labs Labs: 09/01/16 14:18 09/01/16 14:18 PT 15.8 SECONDS (9.7-12.2) H 08/28/16 17:54 INR 1.4 08/28/16 17:54 APTT 28 SECONDS (21-34) 08/28/16 17:54 - Constitutional Appears: Well, Non-toxic, No Acute Distress - Head Exam Head Exam: ATRAUMATIC, NORMOCEPHALIC - Eye Exam Eye Exam: EOMI, Normal appearance - ENT Exam ENT Exam: Mucous Membranes Moist - Respiratory Exam Respiratory Exam: NORMAL BREATHING PATTERN. absent: Respiratory Distress - Cardiovascular Exam Cardiovascular Exam: REGULAR RHYTHM. absent: Tachycardia Assessment and Plan - Assessment and Plan (Free Text) Assessment: 76 y/o male w/ hx of CLL, now with lymphadenopathy and rash Plan: -NPO pmn except meds -LN biopsy in am -d/w family and patient -d/w Dr. Rizzo [facility] PGY3
[2016-09-03] MEDS: MethylPREDNISolone 40 mg Vial IV SCH ×3 (05:48→21:20)
[2016-09-03 07:25] LABS: PROTHROMBIN TIME 11.1 SECONDS (9.7-12.2)
[2016-09-03 07:31] LABS: ALBUMIN 3.2 g/dL (3.5-5.0)
[2016-09-03 07:33] LABS: AST/SGOT 21 U/L (17-59); GFR AFRICAN-AMERICAN > 60; GFR NON-AFRICAN AMERICAN > 60
[2016-09-03 07:34] LABS: ALB/GLOB RATIO 1.1 (1.0-2.1); ALT/SGPT 41 U/L (21-72); BLOOD UREA NITROGEN 29 mg/dL (9-20); CALCIUM 8.4 mg/dl (8.6-10.4)
[2016-09-03 07:39] LABS: BASO # 0.3 K/uL (0.0-0.2); BASO % 1.2 % (0.0-2.0); EOS # 0.1 K/uL (0.0-0.7); EOS % 0.2 % (0.0-4.0); HEMOGLOBIN 13.3 g/dL (12.0-18.0); LYMPH # 16.1 K/uL (1.0-4.3); LYMPH % 60.2 % (20.0-40.0); MEAN CELL VOLUME 91.1 fL (80.0-94.0); MEAN CORPUSCULAR HEMOGLOBIN 29.7 pg (27.0-31.0); MEAN CORPUSCULAR HGB CONC 32.6 g/dL (33.0-37.0); MEAN PLATELET VOLUME 8.7 fL (7.2-11.7); MONO # 0.1 K/uL (0.0-0.8); MONO % 0.5 % (0.0-10.0); NEUT # 10.1 K/uL (1.8-7.0); NEUT % 37.9 % (50.0-75.0); NRBC % 0.3 % (0.0-2.0); RBC 4.49 Mil/uL (4.40-5.90); RED CELL DISTRIBUTION WIDTH 14.9 % (11.5-14.5); WHITE BLOOD COUNT 26.7 K/uL (4.8-10.8)
[2016-09-03] MEDS ORDERED: Sod Polystyrene Sulf 15 gm/60 ml Oral Susp PO ONE (08:15)
[2016-09-03] MEDS ORDERED: Dextrose 50% SYRINGE Inj (50 ml) IV STA (08:15)
[2016-09-03] MEDS ORDERED: Albuterol HFA 90 mcg/actuation (8 g) INH STA (08:20)
[2016-09-03] MEDS ORDERED: Lidocaine 1% Inj (20ml) ONE (10:31)
[2016-09-03] MEDS ORDERED: Bupivacaine-Epi 0.25%-1:200,000 PF Inj ONE (10:31)
[2016-09-03] MEDS ORDERED: ceFAZolin 1 gm FROZEN Premix 1 GM/50 ML ML IVPB ONE (10:32)
[2016-09-03] MEDS ORDERED: Lactated Ringer's 1,000 ML IV ONE ×2 (10:40→11:17)
[2016-09-03] MEDS ORDERED: Propofol 10 mg/ml Inj (20 ML) ONE (10:42)
[2016-09-03] MEDS ORDERED: Midazolam 2 MG/2 ML VIAL ONE (10:42)
[2016-09-03] MEDS ORDERED: ceFAZolin IV 1 gm in Dextrose 1 GM/50 ML BAG IVPB ONE (10:45)
[2016-09-03] MEDS ORDERED: (Novolog Mix 70/30) Insulin Aspart/Insulin Aspar 100 units/ml SC ONE (10:45)
[2016-09-03] MEDS ORDERED: HYDROmorphone 0.5 mg/0.5 ml ISec IVP PRN (11:34)
[2016-09-03] MEDS ORDERED: Morphine 4 MG/ML VIAL IVP PRN (11:37)
--- NOTE | 2016-09-03 11:39 | PCM.SURG1 ---
Surgeon's Initial Post Op Note - Surgeon's Notes Surgeon: Dr. Rizzo [employer] Servicer And Installer: Anusha Linton, PGY2; Olga Lidia GROSSMAN-III Pre-Operative Diagnosis: lymphadenopathy Operative Findings: see full operative report Post-Operative Diagnosis: same Operation Performed: Excisional lymph node biopsy of right inguinal nodes Specimen/Specimens Removed: right inguinal lymph nodes Estimated Blood Loss: EBL {In ML}: 5 Date of Surgery/Procedure: 09/03/16 Time of Surgery/Procedure: 10:00
[2016-09-03 12:54] LABS: GFR AFRICAN-AMERICAN > 60; GFR NON-AFRICAN AMERICAN > 60
[2016-09-03 12:55] LABS: BLOOD UREA NITROGEN 29 mg/dL (9-20)
--- NOTE | 2016-09-03 19:41 | CP.PCM.PN ---
Subjective - Date & Time of Evaluation Date of Evaluation: 09/03/16 Objective - Vital Signs/Intake and Output Vital Signs (last 24 hours): Temp Pulse Resp BP Pulse Ox 97.1 F L 54 L 13 160/92 H 98 09/03/16 12:30 09/03/16 12:30 09/03/16 12:30 09/03/16 12:30 09/03/16 12:30 Intake and Output: 09/03/16 09/04/16 18:59 06:59 Intake Total 610 Balance 610 - Medications Medications: Current Medications Diphenhydramine HCl (Benadryl) 50 mg PO Q6 [facility] Last Admin: 09/03/16 18:21 Dose: 50 mg Methylprednisolone (Solu-Medrol) 20 mg IV Q12H [facility] Montelukast Sodium (Singulair) 10 mg PO HS [facility] Last Admin: 09/02/16 21:38 Dose: 10 mg Morphine Sulfate (Morphine) 4 mg IVP Q4 PRN PRN Reason: Pain, moderate (4-7) - Labs Labs: 09/03/16 07:03 09/03/16 12:30 PT 11.1 SECONDS (9.7-12.2) 09/03/16 07:03 INR 1.0 09/03/16 07:03 APTT 23 SECONDS (21-34) 09/03/16 07:03 Assessment and Plan (1) Acute frontal sinusitis Status: Acute (2) Chronic lymphocytic leukemia Status: Acute (3) Dehydration Status: Acute (4) Dyspnea Status: Acute (5) Facial abscess Status: Acute (6) Facial asymmetry Status: Acute (7) HTN (hypertension) Status: Acute (8) Leukopenia Status: Acute (9) Neutropenic sepsis Status: Acute (10) Pneumonia Status: Acute (11) Submandibular lymphadenitis Status: Acute (12) Submandibular lymphadenopathy Status: Acute
[2016-09-03 19:42] VITALS: RESP 20
[2016-09-04 07:55] LABS: BASO # 0.1 K/uL (0.0-0.2); BASO % 0.6 % (0.0-2.0); EOS % 0.1 % (0.0-4.0); HEMOGLOBIN 12.7 g/dL (12.0-18.0); LYMPH # 13.9 K/uL (1.0-4.3); MEAN CORPUSCULAR HEMOGLOBIN 29.6 pg (27.0-31.0); MEAN CORPUSCULAR HGB CONC 32.5 g/dL (33.0-37.0); MEAN PLATELET VOLUME 8.4 fL (7.2-11.7); MONO # 0.5 K/uL (0.0-0.8); MONO % 2.4 % (0.0-10.0); NEUT # 7.8 K/uL (1.8-7.0); NEUT % 34.9 % (50.0-75.0); NRBC % 0.1 % (0.0-2.0); RBC 4.29 Mil/uL (4.40-5.90); RED CELL DISTRIBUTION WIDTH 14.4 % (11.5-14.5); WHITE BLOOD COUNT 22.4 K/uL (4.8-10.8)
[2016-09-04 08:10] LABS: ALBUMIN 2.8 g/dL (3.5-5.0)
[2016-09-04 08:13] LABS: ALB/GLOB RATIO 1.1 (1.0-2.1); AST/SGOT 18 U/L (17-59); GFR AFRICAN-AMERICAN > 60; GFR NON-AFRICAN AMERICAN > 60
[2016-09-04 08:14] LABS: ALT/SGPT 36 U/L (21-72); BLOOD UREA NITROGEN 34 mg/dL (9-20); CALCIUM 7.6 mg/dl (8.6-10.4)
[2016-09-04 09:19] VITALS: O2SAT 97
[2016-09-04] MEDS ORDERED: Diphenhydramine 1% Cream (1 oz) TOP SCH (10:00)
--- NOTE | 2016-09-04 10:04 | CP.PCM.PN ---
<Anusha Linton - Last Filed: 09/04/16 10:00> Subjective - Date & Time of Evaluation Date of Evaluation: 09/04/16 Time of Evaluation: 09:00 - Subjective Subjective: Patient seen and examined at bedside. NAEO. Patient denies any pain at the site. Dressing is clean Objective - Vital Signs/Intake and Output Vital Signs (last 24 hours): Temp Pulse Resp BP Pulse Ox 97.8 F 60 20 117/74 97 09/04/16 09:18 09/04/16 09:18 09/04/16 09:18 09/04/16 09:18 09/04/16 09:18 Intake and Output: 09/04/16 09/04/16 06:59 18:59 Intake Total 300 Balance 300 - Medications Medications: Current Medications Diphenhydramine HCl (Benadryl) 50 mg PO Q6 [facility] Last Admin: 09/04/16 05:34 Dose: 50 mg Methylprednisolone (Solu-Medrol) 20 mg IV Q12H [facility] Last Admin: 09/03/16 21:20 Dose: 20 mg Montelukast Sodium (Singulair) 10 mg PO HS [facility] Last Admin: 09/03/16 21:22 Dose: 10 mg Morphine Sulfate (Morphine) 4 mg IVP Q4 PRN PRN Reason: Pain, moderate (4-7) - Labs Labs: 09/04/16 07:51 09/04/16 07:51 PT 11.1 SECONDS (9.7-12.2) 09/03/16 07:03 INR 1.0 09/03/16 07:03 APTT 23 SECONDS (21-34) 09/03/16 07:03 - Constitutional Appears: Well, Non-toxic, No Acute Distress - Head Exam Head Exam: ATRAUMATIC, NORMOCEPHALIC - Eye Exam Eye Exam: Normal appearance. absent: Conjunctival injection, Scleral icterus - ENT Exam ENT Exam: Mucous Membranes Moist, Normal Oropharynx - Respiratory Exam Respiratory Exam: NORMAL BREATHING PATTERN. absent: Accessory Muscle Use, Respiratory Distress - GI/Abdominal Exam GI & Abdominal Exam: absent: Distended - Extremities Exam Extremities Exam: absent: Pedal Edema Additional comments: right groin with surgical dressing c/d/i, no peripheral swelling or hematoma - Neurological Exam Neurological Exam: Alert, Awake, Oriented x3 - Psychiatric Exam Psychiatric exam: Normal Affect, Normal Mood - Skin Skin Exam: Dry, Normal Color, Rash, Warm Assessment and Plan - Assessment and Plan (Free Text) Assessment: 76M with PMH of CLL with leukocytosis POD#1 s/p R groin excisional lymph node biopsy VSS, afebrile Exam benign Plan -Surgical team will sign off at this time -Continue medical management per primary -Dressing may be removed in 5 days. Once dressing is removed patient may shower. Steristrips remain until they fall off -Follow up with Dr. Rizzo in 2 weeks Thank you for this consult. Please re-contact the surgery team if any questions or concerns arise Discussed with Dr. So Linton, PGY2 <Bienvenido Rizzo - Last Filed: 09/07/16 17:29> Objective - Vital Signs/Intake and Output Vital Signs (last 24 hours): Temp Pulse Resp BP Pulse Ox 98.1 F 66 20 138/77 97 09/04/16 15:00 09/04/16 15:00 09/04/16 15:00 09/04/16 15:00 09/04/16 15:00 - Labs Labs: 09/04/16 07:51 09/04/16 07:51 PT 11.1 SECONDS (9.7-12.2) 09/03/16 07:03 INR 1.0 09/03/16 07:03 APTT 23 SECONDS (21-34) 09/03/16 07:03 Attending/Attestation - Attestation I have personally seen and examined this patient.: Yes I have fully participated in the care of the patient.: Yes I have reviewed all pertinent clinical information, including history, physical exam and plan: Yes Notes (Text): 09/07/16 17:29 Pt was seen and examined at bedside on 09/04/16 Agree with above note and assessment
[2016-09-04] MEDS: MethylPREDNISolone 40 mg Vial IV SCH (10:23)
--- NOTE | 2016-09-04 14:01 | CP.PCM.PN ---
Subjective - Date & Time of Evaluation Date of Evaluation: 09/04/16 Time of Evaluation: 09:15 - Subjective Subjective: PGY3 Medicine Note - Dr. Mayra Finch's service: Patient seen and examined at bedside this AM. Patient reports pain at right inguinal region where biopsy was done yesterday. Pain is only to palpation. Patient also reports pruritus of inner forearms bilaterally. Patient denies fever, chills, chest pain, SOB. Objective - Vital Signs/Intake and Output Vital Signs (last 24 hours): Temp Pulse Resp BP Pulse Ox 97.8 F 60 20 117/74 97 09/04/16 09:18 09/04/16 09:18 09/04/16 09:18 09/04/16 09:18 09/04/16 09:18 Intake and Output: 09/04/16 09/04/16 06:59 18:59 Intake Total 300 Balance 300 - Medications Medications: Current Medications Diphenhydramine HCl (Benadryl) 50 mg PO Q6 [facility] Last Admin: 09/04/16 12:23 Dose: 50 mg Methylprednisolone (Solu-Medrol) 20 mg IV Q12H [facility] Last Admin: 09/04/16 10:23 Dose: 20 mg Montelukast Sodium (Singulair) 10 mg PO HS [facility] Last Admin: 09/03/16 21:22 Dose: 10 mg Morphine Sulfate (Morphine) 4 mg IVP Q4 PRN PRN Reason: Pain, moderate (4-7) Zinc Acetate/Diphenhydramine (Benadryl 1% Zinc Acetate -0.1%) 0 cre TOP TID [facility] Last Admin: 09/04/16 12:26 Dose: 1 applic - Labs Labs: 09/04/16 07:51 09/04/16 07:51 PT 11.1 SECONDS (9.7-12.2) 09/03/16 07:03 INR 1.0 09/03/16 07:03 APTT 23 SECONDS (21-34) 09/03/16 07:03 - Constitutional Appears: Non-toxic, No Acute Distress - Head Exam Head Exam: ATRAUMATIC, NORMAL INSPECTION - Eye Exam Eye Exam: EOMI - ENT Exam ENT Exam: Mucous Membranes Moist - Respiratory Exam Respiratory Exam: Clear to Ausculation Bilateral, NORMAL BREATHING PATTERN. absent: Rales, Rhonchi, Wheezes - Cardiovascular Exam Cardiovascular Exam: REGULAR RHYTHM, +S1, +S2. absent: Gallop, Rubs, Murmur - GI/Abdominal Exam GI & Abdominal Exam: Soft, Normal Bowel Sounds. absent: Tenderness - Extremities Exam Extremities Exam: absent: Pedal Edema Additional comments: right inguinal dressing clean, dry, intact - Neurological Exam Neurological Exam: Alert, Awake, Oriented x3 - Psychiatric Exam Psychiatric exam: Normal Affect, Normal Mood - Skin Additional comments: purple, lacy rash on inner forearms bilaterally Assessment and Plan - Assessment and Plan (Free Text) Assessment: CLL prednisone 10mg PO daily Oncology consult - Dr. Gray - help appreciated - cleared for discharge Right inguinal excisional lymph node biopsy 09/03/16 F/U biopsy results outpatient [facility] Warm compresses to area Benadryl PO and benadryl cream Discharge home: Patient to be discharged home per Dr. Mayra Finch. Patient should take all medications as directed below. Patient should keep dressing on his right groin until 09/08/16. He can shower on 09/08/16 as well. The steri-strips underneath the gauze will fall off on their own which is okay. Patient should put warm compresses on the rash on his arms three times a day for 30 minutes at a time. He can apply benadryl cream, which he can buy at a pharmacy, to the rash after the warm compresses. Patient can also take up to 50mg of benadryl three times a day as needed for itching. Patient should make an appointment and follow up with his PMD and oncologist within one week for results of the biopsy. Patient should return to ED immediately if symptoms return or worsen. New Medications; Prednisone 10mg by mouth once a day #20 Montelukast 10mg by mouth once a day before sleep #30 Please follow up with PMD for refill of medications.
--- NOTE | 2016-09-04 15:31 | CP.PCM.PN ---
Subjective - Date & Time of Evaluation Date of Evaluation: 09/04/16 Time of Evaluation: 07:40 - Subjective Subjective: clinically same Objective - Vital Signs/Intake and Output Vital Signs (last 24 hours): Temp Pulse Resp BP Pulse Ox 97.8 F 60 20 117/74 97 09/04/16 09:18 09/04/16 09:18 09/04/16 09:18 09/04/16 09:18 09/04/16 09:18 Intake and Output: 09/04/16 09/04/16 06:59 18:59 Intake Total 300 500 Balance 300 500 - Medications Medications: Current Medications Diphenhydramine HCl (Benadryl) 50 mg PO Q6 [facility] Last Admin: 09/04/16 12:23 Dose: 50 mg Methylprednisolone (Solu-Medrol) 20 mg IV Q12H [facility] Last Admin: 09/04/16 10:23 Dose: 20 mg Montelukast Sodium (Singulair) 10 mg PO HS [facility] Last Admin: 09/03/16 21:22 Dose: 10 mg Morphine Sulfate (Morphine) 4 mg IVP Q4 PRN PRN Reason: Pain, moderate (4-7) Zinc Acetate/Diphenhydramine (Benadryl 1% Zinc Acetate -0.1%) 0 cre TOP TID [facility] Last Admin: 09/04/16 12:26 Dose: 1 applic - Labs Labs: 09/04/16 07:51 09/04/16 07:51 PT 11.1 SECONDS (9.7-12.2) 09/03/16 07:03 INR 1.0 09/03/16 07:03 APTT 23 SECONDS (21-34) 09/03/16 07:03 Assessment and Plan (1) Acute frontal sinusitis Status: Acute (2) Chronic lymphocytic leukemia Status: Acute (3) Dehydration Status: Acute (4) Dyspnea Status: Acute (5) Facial abscess Status: Acute (6) Facial asymmetry Status: Acute (7) HTN (hypertension) Status: Acute (8) Leukopenia Status: Acute (9) Neutropenic sepsis Status: Acute (10) Pneumonia Status: Acute (11) Submandibular lymphadenitis Status: Acute (12) Submandibular lymphadenopathy Status: Acute
[2016-09-04 16:04] VITALS: BP 138/77; PULSE 66; TEMP 98.1
--- NOTE | 2016-09-16 15:41 | PCM.OP ---
Operative Report - Operative Report Date of Surgery/Procedure: 09/03/16 Time of Surgery/Procedure: 12:00 Surgeon: Bienvenido Rizzo MD. General Practitioner: Anusha Linton MD. Anesthesia/Sedation: Local anesthesia plus sedation. Pre-Operative Diagnosis: 1. Generalized lymphadenopathy Post-Operative Diagnosis: 1. Generalized lymphadenopathy. Indication for Surgery: Generalized lymphadenopathy. Operative Findings: Patient had enlarged right inguinal lymph node Procedure/Operation Description: Right inguinal lymph node biopsy, deep. 76 y/ o male who was diagnosed with generalized lymphadenopathy and the patient had a PMHx of CLL. The patient consented for the lymph node biopsy. He was brought to the OR, placed on operating table. After induction of anesthesia, the right groin was prepped and draped in the usual sterile fashion. A transverse 3 cm incision was made in the subcutaneous tissue and through the fascia. The lymph node was identified and then the 2 lymph node was dissected and it was sent to the pathology. Intraoperative confirmation was done for the lymph node. The wound was irrigated and the wound was closed in two layers. The subcutaneous layer was closed in with a 4-0 monocryl and dry, sterile dressing was applied. Patient tolerated procedure well. Count of instruments was correct. There were no apparent complications. Estimated Blood Loss: 10 cc. Drains: None. Complications: none Specimen: Lymph node sent for pathology. Discharge & Condition: stable
== END 2016-09-04 17:20 | disposition home or self-care (01) | DRG 823 ==
LOC: C.ER 16:03 → C.9E 19:11 → C.3T 21:00
PROVIDERS: ADMIT Internal Medicine Nephrology; ATTEND Internal Medicine Nephrology
PROC: 07BH0ZX Excision of Right Inguinal Lymphatic, Open Approach, Diagnostic (ICD-10-PCS; principal; 2016-09-03 16:15)
DX: C85.88 Other specified types of non-Hodgkin lymphoma, lymph nodes of multiple sites (principal); C91.10 Chronic lymphocytic leukemia of B-cell type not having achieved remission; J18.9 Pneumonia, unspecified organism; D64.81 Anemia due to antineoplastic chemotherapy; L02.01 Cutaneous abscess of face; R06.00 Dyspnea, unspecified; D70.3 Neutropenia due to infection; E86.0 Dehydration; D63.0 Anemia in neoplastic disease; J01.10 Acute frontal sinusitis, unspecified; D72.819 Decreased white blood cell count, unspecified; I10 Essential (primary) hypertension; L29.9 Pruritus, unspecified; I88.9 Nonspecific lymphadenitis, unspecified; C85.85 Other specified types of non-Hodgkin lymphoma, lymph nodes of inguinal region and lower limb; R21 Rash and other nonspecific skin eruption; T45.1X5A Adverse effect of antineoplastic and immunosuppressive drugs, initial encounter; Z92.21 Personal history of antineoplastic chemotherapy

== ENCOUNTER 2017-01-14 16:00 | Inpatient (IN) | payer MEDICARE, MEDICAID ==
--- NOTE | 2017-01-14 16:20 | C.PDOC ---
History Of Present Illness 76 y/o M c PMHx HTN, CLL p/w fever x 5 days. Noted temperature of 102 earlier today. Reports cough productive of sputum. Denies dyspnea, vomiting, or chest pain. PMD Ryan Finch Time Seen by Provider: 01/14/17 16:14 Chief Complaint (Nursing): Fever Past Medical History Vital Signs: Last Vital Signs Temp 98.3 F 01/14/17 16:09 Pulse 79 01/14/17 16:09 Resp 20 01/14/17 16:09 BP 124/73 01/14/17 16:09 Pulse Ox 98 01/14/17 16:55 - Medical History PMH: HTN - [facility] Procedures EXCISION OF RIGHT INGUINAL LYMPHATIC, OPEN APPROACH, DIAGN (08/28/16) Family History: States: No Known Family Hx - Social History Hx Tobacco Use: No Hx Alcohol Use: No Hx Substance Use: No - Immunization History Hx Influenza Vaccination: No Hx Pneumococcal Vaccination: No Review Of Systems Except As Marked, All Systems Reviewed And Found Negative. Cardiovascular: Negative for: Chest Pain Gastrointestinal: Negative for: Vomiting Physical Exam - Physical Exam Additional Physical Exam Comments: Gen: NAD Head: AT Eyes: PERRL ENT: No pharyngeal erythema, no exudates Neck: No nuchal rigidity Chest: No tenderness CV: Radial pulses 2+ b/l. No murmur Lungs: R lower lobe rhonchi. No accessory muscle use. No tachypnea. Abd: Soft, nontender. Extremities: FROM x 4. Skin: No erythema. Neuro: Alert, no focal deficit. ED Course And Treatment - Laboratory Results Result Diagrams: 01/14/17 17:13 01/14/17 17:13 O2 Sat by Pulse Oximetry: 98 Medical Decision Making Medical Decision Making: CXR IMPRESSION: New opacity at right lung base. Possible right lower lobe pneumonia. Followup advised. Ceftriaxone/Azithromycin initiated. Dr. Finch accepts patient to his service. Disposition Discussed With : Elida Finch Doctor Will See Patient In The: Hospital - Disposition Disposition: HOSPITALIZED Disposition Time: 17:45 Condition: GUARDED - Clinical Impression Clinical Impression: Pneumonia, Leukocytosis
--- NOTE | 2017-01-14 16:38 | RAD ---
HISTORY: fever COMPARISON: 08/28/2016 FINDINGS: LUNGS: New opacity at right lung base, possibly lower lobe infiltrate. No abnormal opacity seen elsewhere. Possible pneumonia. PLEURA: No significant pleural effusion identified, no pneumothorax apparent. CARDIOVASCULAR: Normal. OSSEOUS STRUCTURES: No significant abnormalities. VISUALIZED UPPER ABDOMEN: Normal. OTHER FINDINGS: None. IMPRESSION: New opacity at right lung base. Possible right lower lobe pneumonia. Followup advised.
[2017-01-14] MEDS ORDERED: Azithromycin 500 MG in Sodium Chloride 0.9% 250 ML IVPB STA (16:55)
[2017-01-14] MEDS ORDERED: cefTRIAXone IV 1 gm in Dextros 50 ML IVPB SCH (17:00)
[2017-01-14 17:23] LABS: BASO # 0.1 K/uL (0.0-0.2); BASO % 0.3 % (0.0-2.0); EOS % 0.1 % (0.0-4.0); HEMATOCRIT 37.9 % (35.0-51.0); LYMPH # 10.2 K/uL (1.0-4.3); LYMPH % 49.5 % (20.0-40.0); MEAN CORPUSCULAR HEMOGLOBIN 29.8 pg (27.0-31.0); MEAN PLATELET VOLUME 8.5 fL (7.2-11.7); MONO # 0.5 K/uL (0.0-0.8); MONO % 2.4 % (0.0-10.0); RED CELL DISTRIBUTION WIDTH 13.8 % (11.5-14.5); WHITE BLOOD COUNT 20.5 K/uL (4.8-10.8)
[2017-01-14] MEDS ORDERED: cefTRIAXone IV 1 gm in Dextros 50 ML IVPB ONE (17:24)
[2017-01-14 17:32] LABS: MEAN CELL VOLUME 87.5 fL (80.0-94.0)
[2017-01-14 17:37] LABS: ALB/GLOB RATIO 1.5 (1.0-2.1); ALKALINE PHOSPHATASE 58 U/L (38-126); ALT/SGPT 29 U/L (21-72); AST/SGOT 23 U/L (17-59); BILIRUBIN,TOTAL 1.7 mg/dL (0.2-1.3); BLOOD UREA NITROGEN 24 mg/dL (9-20); CALCIUM 8.2 mg/dl (8.6-10.4); CARBON DIOXIDE 25 mmol/L (22-30); CHLORIDE 95 mmol/L (98-107); GFR AFRICAN-AMERICAN > 60; GLUCOSE,RANDOM 98 mg/dL (75-110); INR 1.2; POTASSIUM 3.9 mmol/L (3.6-5.2); SODIUM 129 mmol/L (132-148); TOTAL PROTEIN 6.8 g/dL (6.3-8.3)
[2017-01-14] MEDS ORDERED: Azithromycin 500mg/250ML NS 250 ML IVPB SCH (19:45)
--- NOTE | 2017-01-14 19:47 | CP.PCM.HP ---
History of Present Illness - History of Present Illness History of Present Illness: A 76-year-old male with PMHHTN and CLL presents for C/Ofever. C/O -fever for 5 days. High-grade, with chills and rigors, temperature was noted to be 102, partly relieved by antipyretic medications. C/cough for 5 days, productive of whitish to yellowish expectorant. No C/Ochest pain, shortness of breath, vomiting, abdominal pain. Present on Admission - Present on Admission Any Indicators Present on Admission: No Past Patient History - Past Medical History & Family History Past Medical History?: No - Past Social History Smoking Status: Never Smoked - CARDIAC Hx Hypertension: Yes - HEMATOLOGICAL/ONCOLOGICAL Hx Chemotherapy: Yes ((from previous triage)) Hx Leukemia: Yes (CLL (from previous triage)) - MUSCULOSKELETAL/RHEUMATOLOGICAL Hx Falls: No - GENITOURINARY/GYNECOLOGICAL Hx Prostate Problems: No - PSYCHIATRIC Hx Substance Use: No - SURGICAL HISTORY Hx Surgeries: Yes Other/Comment: Prostate Sx - ANESTHESIA Hx Anesthesia: Yes Hx Anesthesia Reactions: No Hx Malignant Hyperthermia: No Meds Allergies/Adverse Reactions: Allergies Allergy/AdvReac Type Severity Reaction Status Date / Time No Known Allergies Allergy Verified 01/14/17 16:08 Physical Exam - Head Exam Head Exam: ATRAUMATIC, NORMAL INSPECTION, NORMOCEPHALIC - Eye Exam Eye Exam: EOMI, Normal appearance, PERRL Pupil Exam: NORMAL ACCOMODATION, PERRL - ENT Exam ENT Exam: Mucous Membranes Moist, Normal Exam - Neck Exam Neck exam: Positive for: Normal Inspection - Respiratory Exam Respiratory Exam: Decreased Breath Sounds - Cardiovascular Exam Cardiovascular Exam: REGULAR RHYTHM, +S1, +S2 - GI/Abdominal Exam GI & Abdominal Exam: Diminished Bowel Sounds, Soft - Rectal Exam Rectal Exam: Deferred Results - Vital Signs Recent Vital Signs: Last Vital Signs Temp 98.9 F 01/14/17 19:30 Pulse 72 01/14/17 19:30 Resp 20 01/14/17 19:30 BP 108/60 01/14/17 19:30 Pulse Ox 97 01/14/17 19:30 - Labs Result Diagrams: 01/15/17 08:07 01/15/17 08:07 Labs: Laboratory Results - last 24 hr 01/14/17 01/14/17 01/14/17 17:13 17:13 17:13 WBC 20.5 H RBC 4.33 L Hgb 12.9 Hct 37.9 MCV 87.5 D MCH 29.8 MCHC 34.0 RDW 13.8 Plt Count 152 MPV 8.5 Neut % (Auto) 47.7 L Lymph % (Auto) 49.5 H [place] % (Auto) 2.4 Eos % (Auto) 0.1 Baso % (Auto) 0.3 Neut # 9.8 H Lymph # 10.2 H [place] # 0.5 Eos # 0.0 Baso # 0.1 PT 13.2 H INR 1.2 APTT 25 Sodium 129 L Potassium 3.9 Chloride 95 L Carbon Dioxide 25 Anion Gap 12 BUN 24 H Creatinine 1.0 Est GFR ( Amer) > 60 Est GFR (Non-Af Amer) > 60 Random Glucose 98 Calcium 8.2 L Total Bilirubin 1.7 H AST 23 ALT 29 Alkaline Phosphatase 58 Total Protein 6.8 Albumin 4.1 Globulin 2.7 Albumin/Globulin Ratio 1.5
[2017-01-14] MEDS: Potassium Ch 20mEq in D5-1/2NS 1,000 ML IV SCH (20:54)
[2017-01-14] MEDS: Albuterol-Ipratrop 3 mg / 0.5 (3 ml) UD INH SCH (20:59)
[2017-01-14] MEDS ORDERED: Vancomycin 1 gm/NS 200 ml 1 GM/200 ML BAG IVPB ONE (23:00)
[2017-01-14] MEDS ORDERED: Vancomycin 1 GM 1 GM/250 ML BAG IVPB STA (23:26)
[2017-01-15] MEDS: Cefepime IV 1 gm in Dextrose 1 GM/50 ML BAG IVPB SCH ×3 (00:05→22:42)
[2017-01-15] MEDS: Albuterol-Ipratrop 3 mg / 0.5 (3 ml) UD INH SCH ×4 (01:17→19:25)
[2017-01-15 08:12] LABS: BASO % 0.3 % (0.0-2.0); EOS # 0.2 K/uL (0.0-0.7); EOS % 1.2 % (0.0-4.0); HEMATOCRIT 36.1 % (35.0-51.0); LYMPH # 8.1 K/uL (1.0-4.3); LYMPH % 60.6 % (20.0-40.0); MEAN CELL VOLUME 88.1 fL (80.0-94.0); MEAN CORPUSCULAR HEMOGLOBIN 29.7 pg (27.0-31.0); MEAN CORPUSCULAR HGB CONC 33.6 g/dL (33.0-37.0); MEAN PLATELET VOLUME 8.8 fL (7.2-11.7); MONO # 0.3 K/uL (0.0-0.8); MONO % 2.1 % (0.0-10.0); NRBC % 0.1 % (0.0-2.0); RED CELL DISTRIBUTION WIDTH 13.8 % (11.5-14.5); WHITE BLOOD COUNT 13.4 K/uL (4.8-10.8)
[2017-01-15 08:35] LABS: ALB/GLOB RATIO 1.4 (1.0-2.1); ALKALINE PHOSPHATASE 51 U/L (38-126); ALT/SGPT 29 U/L (21-72); AST/SGOT 19 U/L (17-59); BILIRUBIN,TOTAL 1.1 mg/dL (0.2-1.3); BLOOD UREA NITROGEN 18 mg/dL (9-20); CALCIUM 7.9 mg/dl (8.6-10.4); CARBON DIOXIDE 23 mmol/L (22-30); CHLORIDE 102 mmol/L (98-107); GFR AFRICAN-AMERICAN > 60; GLUCOSE,RANDOM 92 mg/dL (75-110); POTASSIUM 3.7 mmol/L (3.6-5.2); SODIUM 134 mmol/L (132-148); TOTAL PROTEIN 5.9 g/dL (6.3-8.3)
[2017-01-15 08:36] LABS: RBC URINE 2 /hpf (0-3); URINE BILIRUBIN NEGATIVE (NEGATIVE); URINE BLOOD 1+ (NEGATIVE); URINE COLOR Straw (YELLOW); URINE GLUCOSE (UA) NORMAL (Normal); URINE KETONE NEGATIVE (NEGATIVE); URINE LEUKOCYTE ESTERASE NEG Leu/uL (Negative); URINE PROTEIN NEGATIVE (NEGATIVE); URINE UROBILINOGEN NORMAL mg/dL (0.2-1.0); WBC URINE < 1 /hpf (0-5)
--- NOTE | 2017-01-15 09:06 | CP.PCM.PN ---
Subjective - Date & Time of Evaluation Date of Evaluation: 01/15/17 Time of Evaluation: 10:40 - Subjective Subjective: clinically same Objective - Vital Signs/Intake and Output Vital Signs (last 24 hours): Temp Pulse Resp BP Pulse Ox 97.2 F L 63 20 117/70 97 01/15/17 08:52 01/15/17 08:52 01/15/17 08:52 01/15/17 08:52 01/15/17 08:52 Intake and Output: 01/15/17 01/15/17 06:59 18:59 Intake Total 400 Output Total 700 Balance -300 - Medications Medications: Current Medications Acetaminophen (Tylenol 325mg Tab) 650 mg PO Q6 PRN PRN Reason: Fever >100.4 F Albuterol/Ipratropium (Duoneb 3 Mg/0.5 Mg (3 Ml) Ud) 3 ml INH RQ6 [facility] Last Admin: 01/15/17 07:27 Dose: 3 ml Enoxaparin Sodium (Lovenox) 40 mg SC DAILY [facility] Famotidine (Pepcid) 20 mg PO BID [facility] Azithromycin (Zithromax 500mg In Ns Addvantage) 500 mg in 250 mls @ 166.667 mls /hr IVPB Q24H [facility] Potassium Chloride/Dextrose/Sod Cl (Potassium Chl 20 Meq In D5-1/2ns) 1,000 mls @ 50 mls/hr IV .Q20H [facility] Last Admin: 01/14/17 20:54 Dose: 50 mls/hr Cefepime HCl (Maxipime Iv 1 Gm Premix) 1 gm in 50 mls @ 100 mls/hr IVPB Q12H [facility] Last Admin: 01/15/17 00:05 Dose: 100 mls/hr Naproxen (Anaprox Ds) 550 mg PO BID [facility] Promethazine HCl/Dextromethorphan (Phenergan Dm Syrup) 10 ml PO Q8 PRN PRN Reason: Cough - Labs Labs: 01/15/17 08:07 01/15/17 08:07 PT 13.2 SECONDS (9.7-12.2) H 01/14/17 17:13 INR 1.2 01/14/17 17:13 APTT 25 SECONDS (21-34) 01/14/17 17:13 - Constitutional Appears: Well - Head Exam Head Exam: ATRAUMATIC, NORMAL INSPECTION, NORMOCEPHALIC - Eye Exam Eye Exam: EOMI, Normal appearance, PERRL Pupil Exam: NORMAL ACCOMODATION, PERRL - ENT Exam ENT Exam: Mucous Membranes Moist, Normal Exam - Neck Exam Neck Exam: Full ROM, Normal Inspection. absent: Lymphadenopathy - Respiratory Exam Respiratory Exam: Decreased Breath Sounds - Cardiovascular Exam Cardiovascular Exam: REGULAR RHYTHM, +S1, +S2 - GI/Abdominal Exam GI & Abdominal Exam: Soft, Diminished Bowel Sounds - Rectal Exam Rectal Exam: Deferred Assessment and Plan (1) Leukocytosis Status: Acute (2) Pneumonia Status: Acute (3) Acute frontal sinusitis Status: Acute (4) Anemia Status: Acute (5) CLL (chronic lymphocytic leukemia) Status: Acute (6) Chronic lymphocytic leukemia Status: Acute (7) Dehydration Status: Acute (8) Dyspnea Status: Acute (9) Facial abscess Status: Acute (10) Facial asymmetry Status: Acute (11) HTN (hypertension) Status: Acute (12) Leukopenia Status: Acute (13) Lymphoma Status: Acute (14) Neutropenic sepsis Status: Acute (15) Pruritic rash Status: Acute (16) Submandibular lymphadenitis Status: Acute (17) Submandibular lymphadenopathy Status: Acute - Assessment and Plan (Free Text) Plan: Patient examined. EKG shows sinus bradycardia, RSR'QRS pattern. Low voltage complexes. Chest x-ray shows possible right lower lobe pneumonia. Total counts raised at 13.4, with significant lymphocytosis. Urine culture is negative. Blood culture shows no growth after 24 hours. Sputum Gram stain shows few gram-positive cocci in clusters and rare gram- negative rods. Culture pending Continue azithromycin and cefepime. Continue supportive medications.
[2017-01-15] MEDS: Naproxen 550 mg Tab PO SCH ×2 (09:45→18:03)
[2017-01-15] MEDS: Promethazine DM 12.5 mg-30 mg/10 ml Syrup PO PRN (09:45)
[2017-01-15] MEDS: Enoxaparin 40 mg Syringe SC SCH (09:45)
[2017-01-15] MEDS ORDERED: cefTRIAXone IV 1 gm in Dextros 50 ML IVPB SCH ×2 (10:00→17:00)
--- NOTE | 2017-01-15 13:24 | CP.PCM.CON ---
History of Present Illness - History of Present Illness History of Present Illness: 76 y/o M c PMHx HTN, CLL Rx by heme/onc since 2013 and reported remission..... p/w fever x 5 days. Noted temperature of 102 earlier day of admission. Reports cough productive of sputum. Denies dyspnea, vomiting, or chest pain. We are consulted for bradycardia. Cardiac Hx: No GA, PCI, CABG or CVA PMHX: As above No HTN or DM PSHX: None major SOCHX: no toxic habits ROS: > all 12 systems neg except for HPI Review of Systems - Review of Systems All systems: reviewed and no additional remarkable complaints except - Constitutional Constitutional: Fatigue, Fever, Lethargy - EENT Nose/Mouth/Throat: Other (cough) Past Patient History - Past Medical History & Family History Past Medical History?: No - Past Social History Smoking Status: Never Smoked - CARDIAC Hx Hypertension: Yes - HEMATOLOGICAL/ONCOLOGICAL Hx Chemotherapy: Yes ((from previous triage)) Hx Leukemia: Yes (CLL (from previous triage)) - MUSCULOSKELETAL/RHEUMATOLOGICAL Hx Falls: No - GENITOURINARY/GYNECOLOGICAL Hx Prostate Problems: No - PSYCHIATRIC Hx Substance Use: No - SURGICAL HISTORY Hx Surgeries: Yes Other/Comment: Prostate Sx - ANESTHESIA Hx Anesthesia: Yes Hx Anesthesia Reactions: No Hx Malignant Hyperthermia: No Meds Allergies/Adverse Reactions: Allergies Allergy/AdvReac Type Severity Reaction Status Date / Time No Known Allergies Allergy Verified 01/14/17 16:08 - Medications Medications: Current Medications Acetaminophen (Tylenol 325mg Tab) 650 mg PO Q6 PRN PRN Reason: Fever >100.4 F Albuterol/Ipratropium (Duoneb 3 Mg/0.5 Mg (3 Ml) Ud) 3 ml INH RQ6 [facility] Last Admin: 01/15/17 07:27 Dose: 3 ml Enoxaparin Sodium (Lovenox) 40 mg SC DAILY [facility] Last Admin: 01/15/17 09:45 Dose: 40 mg Famotidine (Pepcid) 20 mg PO BID [facility] Last Admin: 01/15/17 09:45 Dose: 20 mg Azithromycin (Zithromax 500mg In Ns Addvantage) 500 mg in 250 mls @ 166.667 mls /hr IVPB Q24H [facility] Potassium Chloride/Dextrose/Sod Cl (Potassium Chl 20 Meq In D5-1/2ns) 1,000 mls @ 50 mls/hr IV .Q20H [facility] Last Admin: 01/14/17 20:54 Dose: 50 mls/hr Cefepime HCl (Maxipime Iv 1 Gm Premix) 1 gm in 50 mls @ 100 mls/hr IVPB Q12H [facility] Last Admin: 01/15/17 11:25 Dose: 100 mls/hr Naproxen (Anaprox Ds) 550 mg PO BID [facility] Last Admin: 01/15/17 09:45 Dose: 550 mg Promethazine HCl/Dextromethorphan (Phenergan Dm Syrup) 10 ml PO Q8 PRN PRN Reason: Cough Last Admin: 01/15/17 09:45 Dose: 10 ml Physical Exam - Constitutional Appears: No Acute Distress - Head Exam Head Exam: ATRAUMATIC, NORMAL INSPECTION, NORMOCEPHALIC - Eye Exam Eye Exam: EOMI, Normal appearance, PERRL - ENT Exam ENT Exam: Mucous Membranes Moist - Neck Exam Neck exam: Positive for: Normal Inspection - Respiratory Exam Respiratory Exam: Clear to Auscultation Bilateral, Rhonchi, NORMAL BREATHING PATTERN. absent: Wheezes - Cardiovascular Exam Cardiovascular Exam: REGULAR RHYTHM, +S1, +S2. absent: +S4, Systolic Murmur - GI/Abdominal Exam GI & Abdominal Exam: Normal Bowel Sounds, Soft. absent: Tenderness - Extremities Exam Extremities exam: Positive for: normal inspection, pedal pulses present. Negative for: calf tenderness, pedal edema - Neurological Exam Neurological exam: Alert, CN II-XII Intact, Oriented x3 - Psychiatric Exam Psychiatric exam: Normal Affect, Normal Mood - Skin Skin Exam: Normal Color, Warm Results - Vital Signs Recent Vital Signs: Last Vital Signs Temp 97.2 F L 01/15/17 08:52 Pulse 63 01/15/17 08:52 Resp 20 01/15/17 08:52 BP 117/70 01/15/17 08:52 Pulse Ox 97 01/15/17 08:52 - Labs Result Diagrams: 01/15/17 08:07 01/15/17 08:07 Labs: Laboratory Results - last 24 hr 01/14/17 01/14/17 01/14/17 17:13 17:13 17:13 WBC 20.5 H RBC 4.33 L Hgb 12.9 Hct 37.9 MCV 87.5 D MCH 29.8 MCHC 34.0 RDW 13.8 Plt Count 152 MPV 8.5 Neut % (Auto) 47.7 L Lymph % (Auto) 49.5 H [place] % (Auto) 2.4 Eos % (Auto) 0.1 Baso % (Auto) 0.3 Neut # 9.8 H Lymph # 10.2 H [place] # 0.5 Eos # 0.0 Baso # 0.1 ESR PT 13.2 H INR 1.2 APTT 25 Sodium 129 L Potassium 3.9 Chloride 95 L Carbon Dioxide 25 Anion Gap 12 BUN 24 H Creatinine 1.0 Est GFR ( Amer) > 60 Est GFR (Non-Af Amer) > 60 POC Glucose (mg/dL) Random Glucose 98 Calcium 8.2 L Total Bilirubin 1.7 H AST 23 ALT 29 Alkaline Phosphatase 58 Total Protein 6.8 Albumin 4.1 Globulin 2.7 Albumin/Globulin Ratio 1.5 Urine Color Urine Clarity Urine pH Ur Specific [place] Urine Protein Urine Glucose (UA) Urine Ketones Urine Blood Urine Nitrate Urine Bilirubin Urine Urobilinogen Ur Leukocyte Esterase Urine WBC (Auto) Urine RBC (Auto) Ur Squamous Epith Cells Influenza Typ A,B (EIA) Ur L.pneumophila Ag Mycoplasma pneumon IgM 01/14/17 01/14/17 01/15/17 21:02 23:08 00:14 WBC RBC Hgb Hct MCV MCH MCHC RDW Plt Count MPV Neut % (Auto) Lymph % (Auto) [place] % (Auto) Eos % (Auto) Baso % (Auto) Neut # Lymph # [place] # Eos # Baso # ESR PT INR APTT Sodium Potassium Chloride Carbon Dioxide Anion Gap BUN Creatinine Est GFR ( Amer) Est GFR (Non-Af Amer) POC Glucose (mg/dL) 94 Random Glucose Calcium Total Bilirubin AST ALT Alkaline Phosphatase Total Protein Albumin Globulin Albumin/Globulin Ratio Urine Color Urine Clarity Urine pH Ur Specific [place] Urine Protein Urine Glucose (UA) Urine Ketones Urine Blood Urine Nitrate Urine Bilirubin Urine Urobilinogen Ur Leukocyte Esterase Urine WBC (Auto) Urine RBC (Auto) Ur Squamous Epith Cells Influenza Typ A,B (EIA) Negative for flu a/b Ur L.pneumophila Ag Negative Mycoplasma pneumon IgM 01/15/17 01/15/17 01/15/17 06:50 08:07 08:07 WBC 13.4 H RBC 4.10 L Hgb 12.2 Hct 36.1 MCV 88.1 MCH 29.7 MCHC 33.6 RDW 13.8 Plt Count 147 MPV 8.8 Neut % (Auto) 35.8 L Lymph % (Auto) 60.6 H [place] % (Auto) 2.1 Eos % (Auto) 1.2 Baso % (Auto) 0.3 Neut # 4.8 Lymph # 8.1 H [place] # 0.3 Eos # 0.2 Baso # 0.0 ESR 90 H PT INR APTT Sodium 134 Potassium 3.7 Chloride 102 Carbon Dioxide 23 Anion Gap 14 BUN 18 Creatinine 0.8 Est GFR ( Amer) > 60 Est GFR (Non-Af Amer) > 60 POC Glucose (mg/dL) Random Glucose 92 Calcium 7.9 L Total Bilirubin 1.1 AST 19 ALT 29 Alkaline Phosphatase 51 Total Protein 5.9 L Albumin 3.4 L Globulin 2.5 Albumin/Globulin Ratio 1.4 Urine Color Straw Urine Clarity Clear Urine pH 6.0 Ur Specific [place] 1.005 Urine Protein Negative Urine Glucose (UA) Normal Urine Ketones Negative Urine Blood 1+ H Urine Nitrate Negative Urine Bilirubin Negative Urine Urobilinogen Normal Ur Leukocyte Esterase Neg Urine WBC (Auto) < 1 Urine RBC (Auto) 2 Ur Squamous Epith Cells < 1 Influenza Typ A,B (EIA) Ur L.pneumophila Ag Mycoplasma pneumon IgM 01/15/17 08:07 WBC RBC Hgb Hct MCV MCH MCHC RDW Plt Count MPV Neut % (Auto) Lymph % (Auto) [place] % (Auto) Eos % (Auto) Baso % (Auto) Neut # Lymph # [place] # Eos # Baso # ESR PT INR APTT Sodium Potassium Chloride Carbon Dioxide Anion Gap BUN Creatinine Est GFR ( Amer) Est GFR (Non-Af Amer) POC Glucose (mg/dL) Random Glucose Calcium Total Bilirubin AST ALT Alkaline Phosphatase Total Protein Albumin Globulin Albumin/Globulin Ratio Urine Color Urine Clarity Urine pH Ur Specific [place] Urine Protein Urine Glucose (UA) Urine Ketones Urine Blood Urine Nitrate Urine Bilirubin Urine Urobilinogen Ur Leukocyte Esterase Urine WBC (Auto) Urine RBC (Auto) Ur Squamous Epith Cells Influenza Typ A,B (EIA) Ur L.pneumophila Ag Mycoplasma pneumon IgM Negative Assessment & Plan - Assessment and Plan (Free Text) Assessment: 1. Cough, fever, RLL PNA 2. Bradycardia Asymptomatic sinus bradycardia > No clinically evident cardiovascular abnormalities > No hx of prior recurrent dizziness or syncope > labs acceptable range No need for any addtional testing or RX for this. Please obtain 12 lead EKG TELE: reviewed and suggest stable sinus rhythm with rare isolated sinus bradycardia PNA: cont RX as ordered - Date & Time Date: 01/15/17 Time: 13:40
--- NOTE | 2017-01-15 16:23 | CP.PCM.PN ---
<Migel Carroll - Last Filed: 01/15/17 16:33> Subjective - Date & Time of Evaluation Date of Evaluation: 01/15/17 Time of Evaluation: 16:20 - Subjective Subjective: Progress note. Attending: Dr. Finch. This is a 76 yo male with past medical hx of HTN and CLL, in remission, presenting with fever x 5 days. Pt seen and examined at bedside. No acute distress. No events overnight. No fevers, chills, vomiting, diarrhea. PMH: HTN, CLL PSH: denies Allergies: NKDA FH: Non contributory Social hx: no smoking, drinking drug use. Objective - Vital Signs/Intake and Output Vital Signs (last 24 hours): Temp Pulse Resp BP Pulse Ox 97.2 F L 60 20 117/70 97 01/15/17 08:52 01/15/17 11:52 01/15/17 08:52 01/15/17 08:52 01/15/17 08:52 Intake and Output: 01/15/17 01/15/17 06:59 18:59 Intake Total 400 830 Output Total 700 Balance -300 830 - Medications Medications: Current Medications Acetaminophen (Tylenol 325mg Tab) 650 mg PO Q6 PRN PRN Reason: Fever >100.4 F Albuterol/Ipratropium (Duoneb 3 Mg/0.5 Mg (3 Ml) Ud) 3 ml INH RQ6 [facility] Last Admin: 01/15/17 13:28 Dose: Not Given Enoxaparin Sodium (Lovenox) 40 mg SC DAILY [facility] Last Admin: 01/15/17 09:45 Dose: 40 mg Famotidine (Pepcid) 20 mg PO BID [facility] Last Admin: 01/15/17 09:45 Dose: 20 mg Azithromycin (Zithromax 500mg In Ns Addvantage) 500 mg in 250 mls @ 166.667 mls /hr IVPB Q24H [facility] Potassium Chloride/Dextrose/Sod Cl (Potassium Chl 20 Meq In D5-1/2ns) 1,000 mls @ 50 mls/hr IV .Q20H [facility] Last Admin: 01/14/17 20:54 Dose: 50 mls/hr Cefepime HCl (Maxipime Iv 1 Gm Premix) 1 gm in 50 mls @ 100 mls/hr IVPB Q12H [facility] Last Admin: 01/15/17 11:25 Dose: 100 mls/hr Naproxen (Anaprox Ds) 550 mg PO BID [facility] Last Admin: 01/15/17 09:45 Dose: 550 mg Promethazine HCl/Dextromethorphan (Phenergan Dm Syrup) 10 ml PO Q8 PRN PRN Reason: Cough Last Admin: 01/15/17 09:45 Dose: 10 ml - Labs Labs: 01/15/17 08:07 01/15/17 08:07 PT 13.2 SECONDS (9.7-12.2) H 01/14/17 17:13 INR 1.2 01/14/17 17:13 APTT 25 SECONDS (21-34) 01/14/17 17:13 - Constitutional Appears: Non-toxic, No Acute Distress - Head Exam Head Exam: ATRAUMATIC, NORMAL INSPECTION, NORMOCEPHALIC - Eye Exam Eye Exam: EOMI - ENT Exam ENT Exam: Mucous Membranes Moist - Neck Exam Neck Exam: Full ROM, Normal Inspection - Respiratory Exam Respiratory Exam: Rhonchi. absent: Respiratory Distress - Cardiovascular Exam Cardiovascular Exam: +S1, +S2 - GI/Abdominal Exam GI & Abdominal Exam: Soft, Normal Bowel Sounds. absent: Tenderness - Extremities Exam Extremities Exam: Full ROM, Normal Inspection - Neurological Exam Neurological Exam: Alert, Awake, Oriented x3 - Psychiatric Exam Psychiatric exam: Normal Affect, Normal Mood - Skin Skin Exam: Dry, Intact, Normal Color, Warm Assessment and Plan - Assessment and Plan (Free Text) Assessment: This is a 76 yo male with 1. Community acquired pna -r/o sepsis -continue azithromycin IV 500 mg daily (start date 01/15) -continue cefepime 1 g q 12 (start date 01/14) -continue duonebs RQ6 [facility] -ID consult. Dr. Katz. recs appreciated. -D5 1/2 NS 50 cc/hr -blood cultures pending -urine cultures pending -sputum cultures pending -urine strep/mycoplasma -flu pending -tylenol prn for pain -phenergan cough syrup for cough 2. Leukocytosis -Dr. Gray/heme onc. recs appreciated -continue to monitor 3. hx of CLL -DR. Gray consult. recs appreciated. 4. GI/DVT ppx -lovenox 40 -protonix daily discussed with Dr. Finch. <Elida Finch S - Last Filed: 01/16/17 10:57> Objective - Vital Signs/Intake and Output Vital Signs (last 24 hours): Temp Pulse Resp BP Pulse Ox 98.1 F 61 17 126/74 99 01/16/17 07:05 01/16/17 07:05 01/16/17 07:05 01/16/17 07:05 01/16/17 07:05 Intake and Output: 01/16/17 01/16/17 06:59 18:59 Intake Total 760 Balance 760 - Medications Medications: Current Medications Acetaminophen (Tylenol 325mg Tab) 650 mg PO Q6 PRN PRN Reason: Fever >100.4 F Albuterol/Ipratropium (Duoneb 3 Mg/0.5 Mg (3 Ml) Ud) 3 ml INH RQ6 [facility] Last Admin: 01/16/17 07:22 Dose: Not Given Enoxaparin Sodium (Lovenox) 40 mg SC DAILY [facility] Last Admin: 01/16/17 09:39 Dose: 40 mg Famotidine (Pepcid) 20 mg PO BID [facility] Last Admin: 01/16/17 09:40 Dose: 20 mg Azithromycin (Zithromax 500mg In Ns Addvantage) 500 mg in 250 mls @ 166.667 mls /hr IVPB Q24H [facility] Last Admin: 01/15/17 18:04 Dose: 166.667 mls/hr Potassium Chloride/Dextrose/Sod Cl (Potassium Chl 20 Meq In D5-1/2ns) 1,000 mls @ 50 mls/hr IV .Q20H [facility] Last Admin: 01/15/17 18:05 Dose: 50 mls/hr Cefepime HCl (Maxipime Iv 1 Gm Premix) 1 gm in 50 mls @ 100 mls/hr IVPB Q12H [facility] Last Admin: 01/15/17 22:42 Dose: 100 mls/hr Sodium Chloride (Sodium Chloride 0.9%) 1,000 mls @ 80 mls/hr IV .[id number] [facility] Last Admin: 01/15/17 22:42 Dose: 80 mls/hr Naproxen (Anaprox Ds) 550 mg PO BID [facility] Last Admin: 01/16/17 09:40 Dose: 550 mg Promethazine HCl/Dextromethorphan (Phenergan Dm Syrup) 10 ml PO Q8 PRN PRN Reason: Cough Last Admin: 01/16/17 10:17 Dose: 10 ml - Labs Labs: 01/16/17 08:08 01/16/17 08:08 PT 13.2 SECONDS (9.7-12.2) H 01/14/17 17:13 INR 1.2 01/14/17 17:13 APTT 25 SECONDS (21-34) 01/14/17 17:13 Assessment and Plan (1) Leukocytosis Status: Acute (2) Pneumonia Status: Acute (3) Acute frontal sinusitis Status: Acute (4) Anemia Status: Acute (5) CLL (chronic lymphocytic leukemia) Status: Acute (6) Chronic lymphocytic leukemia Status: Acute (7) Dehydration Status: Acute (8) Dyspnea Status: Acute (9) Facial abscess Status: Acute (10) Facial asymmetry Status: Acute (11) HTN (hypertension) Status: Acute (12) Leukopenia Status: Acute (13) Lymphoma Status: Acute (14) Neutropenic sepsis Status: Acute (15) Pruritic rash Status: Acute (16) Submandibular lymphadenitis Status: Acute (17) Submandibular lymphadenopathy Status: Acute Attending/Attestation - Attestation I have personally seen and examined this patient.: Yes I have fully participated in the care of the patient.: Yes I have reviewed all pertinent clinical information, including history, physical exam and plan: Yes Notes (Text): Patient examined. No acute distress. No acute overnight events. Continue azithromycin and cefepime. Awaiting results of sputum culture. Continue supportive care.
[2017-01-15] MEDS: Potassium Ch 20mEq in D5-1/2NS 1,000 ML IV SCH ×2 (16:30→18:05)
[2017-01-15] MEDS ORDERED: Azithromycin 500mg/250ML NS 500 MG/250 ML BAG IVPB SCH (18:00)
--- NOTE | 2017-01-15 19:11 | CP.PCM.CON ---
History of Present Illness - History of Present Illness History of Present Illness: dictated Past Patient History - Past Medical History & Family History Past Medical History?: No - Past Social History Smoking Status: Never Smoked - CARDIAC Hx Hypertension: Yes - HEMATOLOGICAL/ONCOLOGICAL Hx Chemotherapy: Yes ((from previous triage)) Hx Leukemia: Yes (CLL (from previous triage)) - MUSCULOSKELETAL/RHEUMATOLOGICAL Hx Falls: No - GENITOURINARY/GYNECOLOGICAL Hx Prostate Problems: No - PSYCHIATRIC Hx Substance Use: No - SURGICAL HISTORY Hx Surgeries: Yes Other/Comment: Prostate Sx - ANESTHESIA Hx Anesthesia: Yes Hx Anesthesia Reactions: No Hx Malignant Hyperthermia: No Meds Allergies/Adverse Reactions: Allergies Allergy/AdvReac Type Severity Reaction Status Date / Time No Known Allergies Allergy Verified 01/14/17 16:08 - Medications Medications: Current Medications Acetaminophen (Tylenol 325mg Tab) 650 mg PO Q6 PRN PRN Reason: Fever >100.4 F Albuterol/Ipratropium (Duoneb 3 Mg/0.5 Mg (3 Ml) Ud) 3 ml INH RQ6 [facility] Last Admin: 01/15/17 13:28 Dose: Not Given Enoxaparin Sodium (Lovenox) 40 mg SC DAILY [facility] Last Admin: 01/15/17 09:45 Dose: 40 mg Famotidine (Pepcid) 20 mg PO BID [facility] Last Admin: 01/15/17 18:03 Dose: 20 mg Azithromycin (Zithromax 500mg In Ns Addvantage) 500 mg in 250 mls @ 166.667 mls /hr IVPB Q24H [facility] Last Admin: 01/15/17 18:04 Dose: 166.667 mls/hr Potassium Chloride/Dextrose/Sod Cl (Potassium Chl 20 Meq In D5-1/2ns) 1,000 mls @ 50 mls/hr IV .Q20H [facility] Last Admin: 01/15/17 18:05 Dose: 50 mls/hr Cefepime HCl (Maxipime Iv 1 Gm Premix) 1 gm in 50 mls @ 100 mls/hr IVPB Q12H [facility] Last Admin: 01/15/17 11:25 Dose: 100 mls/hr Naproxen (Anaprox Ds) 550 mg PO BID [facility] Last Admin: 01/15/17 18:03 Dose: 550 mg Promethazine HCl/Dextromethorphan (Phenergan Dm Syrup) 10 ml PO Q8 PRN PRN Reason: Cough Last Admin: 01/15/17 09:45 Dose: 10 ml Results - Vital Signs Recent Vital Signs: Last Vital Signs Temp 97.7 F 01/15/17 15:12 Pulse 60 01/15/17 15:12 Resp 20 01/15/17 15:12 BP 99/56 L 01/15/17 15:12 Pulse Ox 98 01/15/17 15:12 - Labs Result Diagrams: 01/15/17 08:07 01/15/17 08:07 Labs: Laboratory Results - last 24 hr 01/14/17 01/14/17 01/15/17 21:02 23:08 00:14 WBC RBC Hgb Hct MCV MCH MCHC RDW Plt Count MPV Neut % (Auto) Lymph % (Auto) [place] % (Auto) Eos % (Auto) Baso % (Auto) Neut # Lymph # [place] # Eos # Baso # ESR Sodium Potassium Chloride Carbon Dioxide Anion Gap BUN Creatinine Est GFR ( Amer) Est GFR (Non-Af Amer) POC Glucose (mg/dL) 94 Random Glucose Calcium Total Bilirubin AST ALT Alkaline Phosphatase Total Protein Albumin Globulin Albumin/Globulin Ratio Urine Color Urine Clarity Urine pH Ur Specific [place] Urine Protein Urine Glucose (UA) Urine Ketones Urine Blood Urine Nitrate Urine Bilirubin Urine Urobilinogen Ur Leukocyte Esterase Urine WBC (Auto) Urine RBC (Auto) Ur Squamous Epith Cells Influenza Typ A,B (EIA) Negative for flu a/b Ur L.pneumophila Ag Negative Mycoplasma pneumon IgM 01/15/17 01/15/17 01/15/17 06:50 08:07 08:07 WBC 13.4 H RBC 4.10 L Hgb 12.2 Hct 36.1 MCV 88.1 MCH 29.7 MCHC 33.6 RDW 13.8 Plt Count 147 MPV 8.8 Neut % (Auto) 35.8 L Lymph % (Auto) 60.6 H [place] % (Auto) 2.1 Eos % (Auto) 1.2 Baso % (Auto) 0.3 Neut # 4.8 Lymph # 8.1 H [place] # 0.3 Eos # 0.2 Baso # 0.0 ESR 90 H Sodium 134 Potassium 3.7 Chloride 102 Carbon Dioxide 23 Anion Gap 14 BUN 18 Creatinine 0.8 Est GFR ( Amer) > 60 Est GFR (Non-Af Amer) > 60 POC Glucose (mg/dL) Random Glucose 92 Calcium 7.9 L Total Bilirubin 1.1 AST 19 ALT 29 Alkaline Phosphatase 51 Total Protein 5.9 L Albumin 3.4 L Globulin 2.5 Albumin/Globulin Ratio 1.4 Urine Color Straw Urine Clarity Clear Urine pH 6.0 Ur Specific [place] 1.005 Urine Protein Negative Urine Glucose (UA) Normal Urine Ketones Negative Urine Blood 1+ H Urine Nitrate Negative Urine Bilirubin Negative Urine Urobilinogen Normal Ur Leukocyte Esterase Neg Urine WBC (Auto) < 1 Urine RBC (Auto) 2 Ur Squamous Epith Cells < 1 Influenza Typ A,B (EIA) Ur L.pneumophila Ag Mycoplasma pneumon IgM 01/15/17 08:07 WBC RBC Hgb Hct MCV MCH MCHC RDW Plt Count MPV Neut % (Auto) Lymph % (Auto) [place] % (Auto) Eos % (Auto) Baso % (Auto) Neut # Lymph # [place] # Eos # Baso # ESR Sodium Potassium Chloride Carbon Dioxide Anion Gap BUN Creatinine Est GFR ( Amer) Est GFR (Non-Af Amer) POC Glucose (mg/dL) Random Glucose Calcium Total Bilirubin AST ALT Alkaline Phosphatase Total Protein Albumin Globulin Albumin/Globulin Ratio Urine Color Urine Clarity Urine pH Ur Specific [place] Urine Protein Urine Glucose (UA) Urine Ketones Urine Blood Urine Nitrate Urine Bilirubin Urine Urobilinogen Ur Leukocyte Esterase Urine WBC (Auto) Urine RBC (Auto) Ur Squamous Epith Cells Influenza Typ A,B (EIA) Ur L.pneumophila Ag Mycoplasma pneumon IgM Negative
[2017-01-15] MEDS ORDERED: Sodium Chloride 0.9% 1,000 ML IV SCH (22:15)
[2017-01-15] MEDS: Sodium Chloride 0.9% 1,000 ML IV SCH (22:42)
[2017-01-16] MEDS: Albuterol-Ipratrop 3 mg / 0.5 (3 ml) UD INH SCH ×4 (01:12→19:13)
[2017-01-16] MEDS: Promethazine DM 12.5 mg-30 mg/10 ml Syrup PO PRN ×3 (01:55→22:51)
--- NOTE | 2017-01-16 04:39 | CON ---
DATE: INFECTIOUS DISEASE CONSULTATION REQUESTING PHYSICIAN: Dr. Mayra Finch. HISTORY OF PRESENT ILLNESS: The patient has history of CLL and hypertension. He has been having fever for 5 days, had temp of 102. He also has been coughing a lot. Denies any shortness of breath, does complain of pain in periauricular area on the right side. Denies any deafness. Feels very weak; he says he is not able to ambulate also for 5 days. Has been having fevers; came to the emergency room. PAST MEDICAL HISTORY: Hypertension and CLL. He had excision of right inguinal lymph nodes, drainage in 08/28/2016 and he will be seen by Dr. Gray. FAMILY HISTORY: Noncontributory. SOCIAL HISTORY: Negative for tobacco or alcohol or substance abuse. REVIEW OF SYSTEMS: On asking him further, he does say the fever has made him very weak. He complains of pain on his right parotid and in the auricular area, which is also just started. Has been coughing a lot. Denies any nausea, denies any vomiting, denies any abdominal pain. He feels very weak to walk. Denies any sore throat. He has x-ray done, which showed possible pneumonia and he was admitted, was put on Rocephin and Zithromax. ALLERGIES: THE PATIENT REMAINS NO KNOWN ALLERGIES. PHYSICAL EXAMINATION: VITAL SIGNS: Are 97.7 today, pulse is 60, blood pressure is only 99/56, respirations are 20. HEENT: Head is atraumatic, normocephalic. Pupils are reacting to light. He has pain in the right parotid area, but I do not see any tenderness or any swelling there. Tongue is moist. He was trying to eat. NECK: Supple. LUNGS: Clear. No crackles or rales present. HEART: S1, S2 is regular. ABDOMEN: Soft, nontender, no guarding, no rigidity present. EXTREMITIES: Have no edema. MEDICATIONS: He is on cefepime as well as Zithromax at this time and he is getting nebulizer treatment and Tylenol for fever. He is on Lovenox, Pepcid, and Phenergan. He also got one dose of vancomycin. LABORATORY DATA: Blood cultures, sputum cultures are all pending. X-ray has new opacity on right lung base. ASSESSMENT AND PLAN: So, this patient is admitted with pneumonia, also complains of ear pain and parotid area pain. We will place him on some IV fluids as his blood pressure is on the low side and we will follow and septic workup is pending at this time. Chino Katz MD
[2017-01-16 08:19] LABS: BASO % 0.3 % (0.0-2.0); EOS # 0.3 K/uL (0.0-0.7); EOS % 3.5 % (0.0-4.0); HEMATOCRIT 35.1 % (35.0-51.0); LYMPH % 53.4 % (20.0-40.0); MEAN CELL VOLUME 87.9 fL (80.0-94.0); MEAN CORPUSCULAR HEMOGLOBIN 30.1 pg (27.0-31.0); MEAN CORPUSCULAR HGB CONC 34.2 g/dL (33.0-37.0); MEAN PLATELET VOLUME 8.2 fL (7.2-11.7); MONO # 0.3 K/uL (0.0-0.8); MONO % 4.1 % (0.0-10.0); WHITE BLOOD COUNT 7.4 K/uL (4.8-10.8)
[2017-01-16 08:41] LABS: ALB/GLOB RATIO 1.4 (1.0-2.1); ALKALINE PHOSPHATASE 52 U/L (38-126); ALT/SGPT 36 U/L (21-72); AST/SGOT 26 U/L (17-59); BILIRUBIN,TOTAL 0.6 mg/dL (0.2-1.3); BLOOD UREA NITROGEN 16 mg/dL (9-20); CALCIUM 7.6 mg/dl (8.6-10.4); CARBON DIOXIDE 23 mmol/L (22-30); CHLORIDE 105 mmol/L (98-107); GFR AFRICAN-AMERICAN > 60; GLUCOSE,RANDOM 79 mg/dL (75-110); PHOSPHOROUS 3.5 mg/dL (2.5-4.5); POTASSIUM 3.7 mmol/L (3.6-5.2); SODIUM 137 mmol/L (132-148); TOTAL PROTEIN 5.4 g/dL (6.3-8.3)
--- NOTE | 2017-01-16 09:34 | CP.PCM.PN ---
Subjective - Date & Time of Evaluation Date of Evaluation: 01/16/17 Time of Evaluation: 09:31 - Subjective Subjective: Clinically better No CP, Dizziness or SOB Mild cough, Mild dyspnea On Rx for PNA Objective - Vital Signs/Intake and Output Vital Signs (last 24 hours): Temp Pulse Resp BP Pulse Ox 98.1 F 61 17 126/74 99 01/16/17 07:05 01/16/17 07:05 01/16/17 07:05 01/16/17 07:05 01/16/17 07:05 Intake and Output: 01/16/17 01/16/17 06:59 18:59 Intake Total 760 Balance 760 - Medications Medications: Current Medications Acetaminophen (Tylenol 325mg Tab) 650 mg PO Q6 PRN PRN Reason: Fever >100.4 F Albuterol/Ipratropium (Duoneb 3 Mg/0.5 Mg (3 Ml) Ud) 3 ml INH RQ6 [facility] Last Admin: 01/16/17 07:22 Dose: Not Given Enoxaparin Sodium (Lovenox) 40 mg SC DAILY [facility] Last Admin: 01/15/17 09:45 Dose: 40 mg Famotidine (Pepcid) 20 mg PO BID [facility] Last Admin: 01/15/17 18:03 Dose: 20 mg Azithromycin (Zithromax 500mg In Ns Addvantage) 500 mg in 250 mls @ 166.667 mls /hr IVPB Q24H [facility] Last Admin: 01/15/17 18:04 Dose: 166.667 mls/hr Potassium Chloride/Dextrose/Sod Cl (Potassium Chl 20 Meq In D5-1/2ns) 1,000 mls @ 50 mls/hr IV .Q20H [facility] Last Admin: 01/15/17 18:05 Dose: 50 mls/hr Cefepime HCl (Maxipime Iv 1 Gm Premix) 1 gm in 50 mls @ 100 mls/hr IVPB Q12H [facility] Last Admin: 01/15/17 22:42 Dose: 100 mls/hr Sodium Chloride (Sodium Chloride 0.9%) 1,000 mls @ 80 mls/hr IV .[id number] [facility] Last Admin: 01/15/17 22:42 Dose: 80 mls/hr Naproxen (Anaprox Ds) 550 mg PO BID [facility] Last Admin: 01/15/17 18:03 Dose: 550 mg Promethazine HCl/Dextromethorphan (Phenergan Dm Syrup) 10 ml PO Q8 PRN PRN Reason: Cough Last Admin: 01/16/17 01:55 Dose: 10 ml - Labs Labs: 01/16/17 08:08 01/16/17 08:08 PT 13.2 SECONDS (9.7-12.2) H 01/14/17 17:13 INR 1.2 01/14/17 17:13 APTT 25 SECONDS (21-34) 01/14/17 17:13 - Constitutional Appears: No Acute Distress - Head Exam Head Exam: ATRAUMATIC, NORMAL INSPECTION, NORMOCEPHALIC - Eye Exam Eye Exam: EOMI, Normal appearance, PERRL - ENT Exam ENT Exam: Mucous Membranes Moist, Normal Oropharynx - Neck Exam Neck Exam: Full ROM - Respiratory Exam Respiratory Exam: Clear to Ausculation Bilateral, Rhonchi, NORMAL BREATHING PATTERN. absent: Wheezes - Cardiovascular Exam Cardiovascular Exam: REGULAR RHYTHM, +S1, +S2. absent: +S4, Murmur - GI/Abdominal Exam GI & Abdominal Exam: Normal Bowel Sounds. absent: Organomegaly, Pulsatile Mass , Rebound - Extremities Exam Extremities Exam: Normal Inspection. absent: Calf Tenderness, Pedal Edema - Neurological Exam Neurological Exam: Alert, Awake, Oriented x3 - Skin Skin Exam: Normal Color, Warm Assessment and Plan - Assessment and Plan (Free Text) Assessment: 1. Cough, fever, RLL PNA 2. Bradycardia Asymptomatic sinus bradycardia > No clinically evident cardiovascular abnormalities > No hx of prior recurrent dizziness or syncope > labs acceptable range No need for any addtional testing or RX for this. 12 lead EKG: NSR, sinus leann mild, no acute ischemic changes, non-specific ST changes. TELE: reviewed and suggest stable sinus rhythm with rare isolated sinus bradycardia PNA: cont RX as ordered Will sign off call if questions.
[2017-01-16] MEDS: Enoxaparin 40 mg Syringe SC SCH (09:39)
[2017-01-16] MEDS: Naproxen 550 mg Tab PO SCH ×2 (09:40→17:46)
--- NOTE | 2017-01-16 10:17 | CARD ---
APPROVED REPORT EKG Measurement Heart [id number] <Conclusion> Sinus bradycardia rSr' qrs low voltage Nonspecific T wave abnormality Abnormal ECG
--- NOTE | 2017-01-16 10:36 | CP.PCM.PN ---
Subjective - Date & Time of Evaluation Date of Evaluation: 01/16/17 Time of Evaluation: 10:35 - Subjective Subjective: Progress note. Attending: Dr. Finch. Pt seen and examined at bedside. No acute distress. No events overnight. pt complaining of cough and some ear and throat pain. No fevers, chills. Objective - Vital Signs/Intake and Output Vital Signs (last 24 hours): Temp Pulse Resp BP Pulse Ox 98.1 F 61 17 126/74 99 01/16/17 07:05 01/16/17 07:05 01/16/17 07:05 01/16/17 07:05 01/16/17 07:05 Intake and Output: 01/16/17 01/16/17 06:59 18:59 Intake Total 760 Balance 760 - Medications Medications: Current Medications Acetaminophen (Tylenol 325mg Tab) 650 mg PO Q6 PRN PRN Reason: Fever >100.4 F Albuterol/Ipratropium (Duoneb 3 Mg/0.5 Mg (3 Ml) Ud) 3 ml INH RQ6 [facility] Last Admin: 01/16/17 07:22 Dose: Not Given Enoxaparin Sodium (Lovenox) 40 mg SC DAILY [facility] Last Admin: 01/16/17 09:39 Dose: 40 mg Famotidine (Pepcid) 20 mg PO BID [facility] Last Admin: 01/16/17 09:40 Dose: 20 mg Azithromycin (Zithromax 500mg In Ns Addvantage) 500 mg in 250 mls @ 166.667 mls /hr IVPB Q24H [facility] Last Admin: 01/15/17 18:04 Dose: 166.667 mls/hr Potassium Chloride/Dextrose/Sod Cl (Potassium Chl 20 Meq In D5-1/2ns) 1,000 mls @ 50 mls/hr IV .Q20H [facility] Last Admin: 01/15/17 18:05 Dose: 50 mls/hr Cefepime HCl (Maxipime Iv 1 Gm Premix) 1 gm in 50 mls @ 100 mls/hr IVPB Q12H [facility] Last Admin: 01/15/17 22:42 Dose: 100 mls/hr Sodium Chloride (Sodium Chloride 0.9%) 1,000 mls @ 80 mls/hr IV .[id number] [facility] Last Admin: 01/15/17 22:42 Dose: 80 mls/hr Naproxen (Anaprox Ds) 550 mg PO BID [facility] Last Admin: 01/16/17 09:40 Dose: 550 mg Promethazine HCl/Dextromethorphan (Phenergan Dm Syrup) 10 ml PO Q8 PRN PRN Reason: Cough Last Admin: 01/16/17 10:17 Dose: 10 ml - Labs Labs: 01/16/17 08:08 01/16/17 08:08 PT 13.2 SECONDS (9.7-12.2) H 01/14/17 17:13 INR 1.2 01/14/17 17:13 APTT 25 SECONDS (21-34) 01/14/17 17:13 - Constitutional Appears: Non-toxic, No Acute Distress - Head Exam Head Exam: ATRAUMATIC, NORMAL INSPECTION, NORMOCEPHALIC - Eye Exam Eye Exam: EOMI, Normal appearance - ENT Exam ENT Exam: Mucous Membranes Moist - Neck Exam Neck Exam: Full ROM, Normal Inspection - Respiratory Exam Respiratory Exam: Rhonchi. absent: Clear to Ausculation Bilateral, NORMAL BREATHING PATTERN - Cardiovascular Exam Cardiovascular Exam: +S1, +S2 - GI/Abdominal Exam GI & Abdominal Exam: Soft, Normal Bowel Sounds. absent: Tenderness - Neurological Exam Neurological Exam: Alert, Awake, Oriented x3 - Psychiatric Exam Psychiatric exam: Normal Affect, Normal Mood - Skin Skin Exam: Dry, Intact, Normal Color, Warm Assessment and Plan - Assessment and Plan (Free Text) Assessment: This is a 76 yo male with 1. Community acquired pna -r/o sepsis -continue azithromycin IV 500 mg daily (start date 01/15) -continue cefepime 1 g q 12 (start date 01/14) -continue duonebs RQ6 [facility] -ID consult. Dr. Katz. recs appreciated. -D5 1/2 NS 50 cc/hr -blood cultures negative thus far -urine cultures negative -sputum cultures pending -urine strep/mycoplasma -flu negative -ESR elevated -tylenol prn for pain -phenergan cough syrup for cough -serum procalcitonin pending 2. Ear pain/throat pain -ENT consult. Dr. Dejesus. recs appreciated. 2. Leukocytosis -Dr. Gray/heme onc. recs appreciated -continue to monitor 3. hx of CLL -DR. Gray consult. recs appreciated. 4. GI/DVT ppx -lovenox 40 -protonix daily discussed with Dr. Finch.
[2017-01-16] MEDS: Cefepime IV 1 gm in Dextrose 1 GM/50 ML BAG IVPB SCH ×2 (11:41→22:42)
[2017-01-16 12:36] LABS: N MENINGITIS ACY/W135 NOT REQUIRED (NEGATIVE)
[2017-01-16 12:37] LABS: H INFLUENZAE B NOT REQUIRED (NEGATIVE); N MENINGITIS B/ECOLI K1 NOT REQUIRED (NEGATIVE)
--- NOTE | 2017-01-16 13:48 | CT ---
PROCEDURE: CT OF THE TEMPORAL BONES WITHOUT CONTRAST HISTORY: ear pain COMPARISON: None available. TECHNIQUE: High resolution axial images of the temporal bones were obtained. Coronal and sagittal reformats were generated. Radiation dose: Total exam DLP = mGy-cm. This CT exam was performed using one or more of the following dose reduction techniques: Automated exposure control, adjustment of the mA and/or kV according to patient size, and/or use of iterative reconstruction technique. FINDINGS: RIGHT TEMPORAL BONE: RIGHT MIDDLE EAR: The right middle ear cavity is completely opacified although the the ossicular chain appears intact as well as the scutum. No bony erosion is appreciated and trace cerumen is seen at the external auditory canal or other soft tissue. Clinically correlate further. No gross lesion is seen at the nasopharynx/right torus tubarius to explain right-sided otitis media. Consider direct visualization of the nasopharynx nevertheless. Near complete opacification the right mastoid air cells is appreciated as well as the aditus ad antrum without definite bony erosion. Mastoiditis is not completely excluded. Clinically for correlate further. RIGHT INNER EAR: Cochlea: Normal. Semicircular canals: Normal. RIGHT INTERNAL AUDITORY CANAL: Normal. RIGHT VESTIBULAR AND COCHLEAR AQUEDUCT: Normal. OTHER FINDINGS: None. LEFT TEMPORAL BONE: LEFT MIDDLE EAR: Normal. LEFT INNER EAR: Cochlea: Normal. Semicircular canals: Normal. LEFT MASTOID AIR CELLS: Trace left mastoid effusion is appreciated. LEFT INTERNAL AUDITORY CANAL: Normal. LEFT EXTERNAL AUDITORY CANAL: A moderate amount of soft tissue or debris is seen in the distal left external auditory canal suggestive of probable cerumen though soft tissue lesion is not excluded and further clinical correlation is recommended. LEFT VESTIBULAR AND COCHLEAR AQUEDUCTS: Normal. OTHER FINDINGS: Incidental note is made of mucosal inflammatory changes affecting the a right sphenoid and bilateral ethmoid sinuses. IMPRESSION: 1. Right otitis media is appreciated without disruption of the ossicular chain. As imaged, the oval and round windows appear intact and no erosion of the scutum is appreciated to suggest cholesteatoma at this time. Prominent right mastoid effusions are seen with mastoiditis not completely excluded. No definitive right nasopharynx mass is apparent pharynx masses identified to indicate etiology otitis media however consider direct visualization nevertheless. 2. Trace left mastoid effusion. 3. No left otitis media. 4. Bilateral external auditory canal soft tissue or cerumen, greater at the left and right sides. Clinical follow-up recommended. 5. Incidental right sphenoid and bilateral ethmoid sinus disease as discussed above.
--- NOTE | 2017-01-16 17:36 | CP.PCM.PN ---
Subjective - Date & Time of Evaluation Date of Evaluation: 01/16/17 Time of Evaluation: 03:30 - Subjective Subjective: dictated Objective - Vital Signs/Intake and Output Vital Signs (last 24 hours): Temp Pulse Resp BP Pulse Ox 97.6 F 67 20 111/65 97 01/16/17 15:40 01/16/17 16:00 01/16/17 15:40 01/16/17 15:40 01/16/17 15:40 Intake and Output: 01/16/17 01/16/17 06:59 18:59 Intake Total 760 Balance 760 - Medications Medications: Current Medications Acetaminophen (Tylenol 325mg Tab) 650 mg PO Q6 PRN PRN Reason: Fever >100.4 F Albuterol/Ipratropium (Duoneb 3 Mg/0.5 Mg (3 Ml) Ud) 3 ml INH RQ6 [facility] Last Admin: 01/16/17 13:28 Dose: 3 ml Enoxaparin Sodium (Lovenox) 40 mg SC DAILY [facility] Last Admin: 01/16/17 09:39 Dose: 40 mg Famotidine (Pepcid) 20 mg PO BID [facility] Last Admin: 01/16/17 09:40 Dose: 20 mg Potassium Chloride/Dextrose/Sod Cl (Potassium Chl 20 Meq In D5-1/2ns) 1,000 mls @ 50 mls/hr IV .Q20H [facility] Last Admin: 01/15/17 18:05 Dose: 50 mls/hr Cefepime HCl (Maxipime Iv 1 Gm Premix) 1 gm in 50 mls @ 100 mls/hr IVPB Q12H [facility] Last Admin: 01/16/17 11:41 Dose: 100 mls/hr Sodium Chloride (Sodium Chloride 0.9%) 1,000 mls @ 80 mls/hr IV .[id number] [facility] Last Admin: 01/15/17 22:42 Dose: 80 mls/hr Azithromycin 500 mg/ Sodium (Chloride) 250 mls @ 166.667 mls/hr IVPB Q24H [facility] Naproxen (Anaprox Ds) 550 mg PO BID [facility] Last Admin: 01/16/17 09:40 Dose: 550 mg Promethazine HCl/Dextromethorphan (Phenergan Dm Syrup) 10 ml PO Q8 PRN PRN Reason: Cough Last Admin: 01/16/17 10:17 Dose: 10 ml - Labs Labs: 01/16/17 08:08 01/16/17 08:08 PT 13.2 SECONDS (9.7-12.2) H 01/14/17 17:13 INR 1.2 01/14/17 17:13 APTT 25 SECONDS (21-34) 01/14/17 17:13
[2017-01-16] MEDS: Azithromycin 500 MG in Sodium Chloride 0.9% 250 ML IVPB SCH (17:46)
--- NOTE | 2017-01-16 19:53 | CP.PCM.PN ---
Subjective - Date & Time of Evaluation Date of Evaluation: 01/16/17 Time of Evaluation: 09:40 - Subjective Subjective: clinically same Objective - Vital Signs/Intake and Output Vital Signs (last 24 hours): Temp Pulse Resp BP Pulse Ox 97.6 F 67 20 111/65 97 01/16/17 15:40 01/16/17 16:00 01/16/17 15:40 01/16/17 15:40 01/16/17 15:40 - Medications Medications: Current Medications Acetaminophen (Tylenol 325mg Tab) 650 mg PO Q6 PRN PRN Reason: Fever >100.4 F Albuterol/Ipratropium (Duoneb 3 Mg/0.5 Mg (3 Ml) Ud) 3 ml INH RQ6 [facility] Last Admin: 01/16/17 19:13 Dose: 3 ml Enoxaparin Sodium (Lovenox) 40 mg SC DAILY [facility] Last Admin: 01/16/17 09:39 Dose: 40 mg Famotidine (Pepcid) 20 mg PO BID [facility] Last Admin: 01/16/17 17:46 Dose: 20 mg Potassium Chloride/Dextrose/Sod Cl (Potassium Chl 20 Meq In D5-1/2ns) 1,000 mls @ 50 mls/hr IV .Q20H [facility] Last Admin: 01/15/17 18:05 Dose: 50 mls/hr Cefepime HCl (Maxipime Iv 1 Gm Premix) 1 gm in 50 mls @ 100 mls/hr IVPB Q12H [facility] Last Admin: 01/16/17 11:41 Dose: 100 mls/hr Sodium Chloride (Sodium Chloride 0.9%) 1,000 mls @ 80 mls/hr IV .[id number] [facility] Last Admin: 01/15/17 22:42 Dose: 80 mls/hr Azithromycin 500 mg/ Sodium (Chloride) 250 mls @ 166.667 mls/hr IVPB Q24H [facility] Last Admin: 01/16/17 17:46 Dose: 166.667 mls/hr Naproxen (Anaprox Ds) 550 mg PO BID [facility] Last Admin: 01/16/17 17:46 Dose: 550 mg Promethazine HCl/Dextromethorphan (Phenergan Dm Syrup) 10 ml PO Q8 PRN PRN Reason: Cough Last Admin: 01/16/17 10:17 Dose: 10 ml - Labs Labs: 01/16/17 08:08 01/16/17 08:08 PT 13.2 SECONDS (9.7-12.2) H 01/14/17 17:13 INR 1.2 01/14/17 17:13 APTT 25 SECONDS (21-34) 01/14/17 17:13 - Constitutional Appears: Well - Head Exam Head Exam: ATRAUMATIC, NORMAL INSPECTION, NORMOCEPHALIC - Eye Exam Eye Exam: EOMI, Normal appearance, PERRL Pupil Exam: NORMAL ACCOMODATION, PERRL - ENT Exam ENT Exam: Mucous Membranes Moist, Normal Exam - Neck Exam Neck Exam: Full ROM, Normal Inspection. absent: Lymphadenopathy - Respiratory Exam Respiratory Exam: Decreased Breath Sounds - Cardiovascular Exam Cardiovascular Exam: REGULAR RHYTHM, +S1, +S2 - GI/Abdominal Exam GI & Abdominal Exam: Soft, Diminished Bowel Sounds - Rectal Exam Rectal Exam: Deferred Assessment and Plan (1) Leukocytosis Status: Acute (2) Pneumonia Status: Acute (3) Acute frontal sinusitis Status: Acute (4) Anemia Status: Acute (5) CLL (chronic lymphocytic leukemia) Status: Acute (6) Chronic lymphocytic leukemia Status: Acute (7) Dehydration Status: Acute (8) Dyspnea Status: Acute (9) Facial abscess Status: Acute (10) Facial asymmetry Status: Acute (11) HTN (hypertension) Status: Acute (12) Leukopenia Status: Acute (13) Lymphoma Status: Acute (14) Neutropenic sepsis Status: Acute (15) Pruritic rash Status: Acute (16) Submandibular lymphadenitis Status: Acute (17) Submandibular lymphadenopathy Status: Acute
--- NOTE | 2017-01-16 20:36 | CON ---
DATE: 01/16/2017 REASON FOR CONSULTATION: Right ear pain. REQUESTING PHYSICIAN: Dr. Kimmy Finch HISTORY OF PRESENT ILLNESS: This is a 76-year-old male with multiple day history of right ear pain, which is moderate to severe in intensity, constant and no ear discharge, no hearing loss. PAST MEDICAL HISTORY: As noted in the chart by me. MEDICATIONS: As noted in the chart by me. PHYSICAL EXAMINATION: GENERAL: Well fed, well nourished, and well groomed. Communication: Communicates well and appropriately. HEENT: Head: Atraumatic, normocephalic. Face: Good facial movements bilaterally. Pain on the right TMJ when the patient opens and closes his mouth. External nose and ears: No masses. No lesions. No erythema. No edema. Internal nose: Deviated septum. No masses. No lesions. No erythema. No edema. Ears: Ear wax was noted in both ears, therefore the TM's cannot be visualized. Oral cavity and oropharynx: No masses. No lesions. No erythema. No edema. Lips and gums: No masses. No lesions. No erythema. No edema. NECK: Supple. THYROID: No thyromegaly. No goiter. LYMPH NODES: No lymphadenopathy of the neck. ASSESSMENT: 1. Deviated septum. 2. Ear pain. 3. Temporomandibular joint. PLAN: Recommend soft diet and warm compress to the right TMJ. We will also recommend CT of the temporal bone since the TM's cannot be visualized. Examination showed that the patient does not have an infection. Camilo Dejesus MD
--- NOTE | 2017-01-16 22:57 | PN ---
DATE: SUBJECTIVE: The patient was seen today. He told me he went for CAT scan as his ear has been hurting and he did not feel any better. He had lot of phlegm. He said he is bringing out lot of sputum and he has been coughing up and does not feel well. He wanted me to tell the nurse to give the antibiotics as he came back from the CAT scan. He denied any pain on his face otherwise, but did say that ears have been hurting, and he had a consult with Dr. Chapman, and the nurse told me that the IV antibiotics will take care of his ear too. PHYSICAL EXAMINATION: VITAL SIGNS: T-max is 97.6, pulse 67, blood pressure 111/65, respirations are 20. HEENT: Head is atraumatic, normocephalic. Pupils are reacting to light. LUNGS: Clear. HEART: S1 and S2 regular. ABDOMEN: Soft, nontender. No guarding. No rigidity present. EXTREMITIES: Have no edema. LABORATORY DATA: White count is 7.4 today, hemoglobin 12, hematocrit 35.1, platelet count is 182. Sodium is 137, potassium 3.7, chloride is 105, CO2 is 23, BUN is 16, creatinine 0.8. At this time, the blood and urine cultures were all negative. Sputum culture was pending. He also had a chest x-ray and facial bone CAT scan. The chest x-ray was from , which was showing developing pneumonia in the right lung base; and he had a facial bone CT done, which shows right middle ear cavities all completely opacified, although the ossicular chains appear intact as well as the scutum, bone erosion is appreciated, and trace cerumen is seen in the external auditory canal, clinically correlate. No gross lesion seen in the nasopharynx, right torus tubarius to explain right-sided otitis media, consider direct visualization of the nasopharynx. Near-complete opacification of right mastoid air cells as well as aditus ad antrum without definite bony erosion; mastoiditis is not completely excluded. So, right otitis media is appreciated, and he may have mastoiditis. At this time, we will follow with Dr. Chapman's recommendation. We will continue the IV antibiotics. I am waiting for the sputum culture. He is on Zithromax and Maxipime. The serology for influenza is negative. Urine legionella is negative. Mycoplasma IgM is negative. They also did all these. So it may be that he is aspirating. He is 76-year-old, will follow the chest x-ray in few days and/or if he clinically improves, and we will follow with Dr. Chapman and Dr. Finch. Chino Katz MD
[2017-01-16] MEDS: Sodium Chloride 0.9% 1,000 ML IV SCH (23:56)
[2017-01-17] MEDS ORDERED: guaiFENesin 200 mg/10 ml Syrup UD PO ONE (01:40)
[2017-01-17] MEDS: Albuterol-Ipratrop 3 mg / 0.5 (3 ml) UD INH SCH ×4 (01:42→19:15)
[2017-01-17] MEDS: Promethazine DM 12.5 mg-30 mg/10 ml Syrup PO PRN ×2 (07:03→14:23)
[2017-01-17 08:13] LABS: BASO % 0.4 % (0.0-2.0); EOS # 0.4 K/uL (0.0-0.7); EOS % 4.8 % (0.0-4.0); HEMATOCRIT 33.5 % (35.0-51.0); LYMPH % 51.8 % (20.0-40.0); MEAN CELL VOLUME 88.6 fL (80.0-94.0); MEAN CORPUSCULAR HEMOGLOBIN 30.4 pg (27.0-31.0); MEAN CORPUSCULAR HGB CONC 34.3 g/dL (33.0-37.0); MEAN PLATELET VOLUME 8.1 fL (7.2-11.7); MONO # 0.3 K/uL (0.0-0.8); MONO % 4.3 % (0.0-10.0); NRBC % 0.3 % (0.0-2.0); WHITE BLOOD COUNT 7.8 K/uL (4.8-10.8)
[2017-01-17 09:02] LABS: ALB/GLOB RATIO 1.4 (1.0-2.1); ALKALINE PHOSPHATASE 49 U/L (38-126); ALT/SGPT 34 U/L (21-72); AST/SGOT 23 U/L (17-59); BILIRUBIN,TOTAL 0.6 mg/dL (0.2-1.3); BLOOD UREA NITROGEN 12 mg/dL (9-20); CALCIUM 7.7 mg/dl (8.6-10.4); CARBON DIOXIDE 22 mmol/L (22-30); CHLORIDE 105 mmol/L (98-107); GFR AFRICAN-AMERICAN > 60; GLUCOSE,RANDOM 77 mg/dL (75-110); MAGNESIUM 1.8 mg/dL (1.6-2.3); PHOSPHOROUS 3.9 mg/dL (2.5-4.5); POTASSIUM 4.1 mmol/L (3.6-5.2); SODIUM 138 mmol/L (132-148); TOTAL PROTEIN 5.1 g/dL (6.3-8.3)
[2017-01-17] MEDS: Naproxen 550 mg Tab PO SCH ×2 (09:26→18:14)
[2017-01-17] MEDS: Enoxaparin 40 mg Syringe SC SCH (09:26)
[2017-01-17] MEDS: Cefepime IV 1 gm in Dextrose 1 GM/50 ML BAG IVPB SCH ×2 (10:55→23:07)
--- NOTE | 2017-01-17 16:06 | CP.PCM.PN ---
Subjective - Date & Time of Evaluation Date of Evaluation: 01/17/17 Time of Evaluation: 10:40 - Subjective Subjective: clinically same Objective - Vital Signs/Intake and Output Vital Signs (last 24 hours): Temp Pulse Resp BP Pulse Ox 97.7 F 69 20 118/67 95 01/17/17 07:30 01/17/17 08:00 01/17/17 07:30 01/17/17 07:30 01/17/17 07:30 Intake and Output: 01/17/17 01/17/17 06:59 18:59 Intake Total 1490 Output Total 1200 Balance 290 - Medications Medications: Current Medications Acetaminophen (Tylenol 325mg Tab) 650 mg PO Q6 PRN PRN Reason: Fever >100.4 F Albuterol/Ipratropium (Duoneb 3 Mg/0.5 Mg (3 Ml) Ud) 3 ml INH RQ6 [facility] Last Admin: 01/17/17 13:59 Dose: 3 ml Enoxaparin Sodium (Lovenox) 40 mg SC DAILY [facility] Last Admin: 01/17/17 09:26 Dose: 40 mg Famotidine (Pepcid) 20 mg PO BID [facility] Last Admin: 01/17/17 09:26 Dose: 20 mg Potassium Chloride/Dextrose/Sod Cl (Potassium Chl 20 Meq In D5-1/2ns) 1,000 mls @ 50 mls/hr IV .Q20H [facility] Last Admin: 01/15/17 18:05 Dose: 50 mls/hr Cefepime HCl (Maxipime Iv 1 Gm Premix) 1 gm in 50 mls @ 100 mls/hr IVPB Q12H [facility] Last Admin: 01/17/17 10:55 Dose: 100 mls/hr Sodium Chloride (Sodium Chloride 0.9%) 1,000 mls @ 80 mls/hr IV .[id number] [facility] Last Admin: 01/16/17 23:56 Dose: 80 mls/hr Azithromycin 500 mg/ Sodium (Chloride) 250 mls @ 166.667 mls/hr IVPB Q24H [facility] Last Admin: 01/16/17 17:46 Dose: 166.667 mls/hr Naproxen (Anaprox Ds) 550 mg PO BID [facility] Last Admin: 01/17/17 09:26 Dose: 550 mg Promethazine HCl/Dextromethorphan (Phenergan Dm Syrup) 10 ml PO Q8 PRN PRN Reason: Cough Last Admin: 01/17/17 14:23 Dose: 10 ml - Labs Labs: 01/17/17 08:01 01/17/17 08:01 PT 13.2 SECONDS (9.7-12.2) H 01/14/17 17:13 INR 1.2 01/14/17 17:13 APTT 25 SECONDS (21-34) 01/14/17 17:13 - Constitutional Appears: Well - Head Exam Head Exam: ATRAUMATIC, NORMAL INSPECTION, NORMOCEPHALIC - Eye Exam Eye Exam: EOMI, Normal appearance, PERRL Pupil Exam: NORMAL ACCOMODATION, PERRL - ENT Exam ENT Exam: Mucous Membranes Moist, Normal Exam - Neck Exam Neck Exam: Full ROM, Normal Inspection. absent: Lymphadenopathy - Respiratory Exam Respiratory Exam: Decreased Breath Sounds - Cardiovascular Exam Cardiovascular Exam: REGULAR RHYTHM, +S1, +S2 - GI/Abdominal Exam GI & Abdominal Exam: Soft, Diminished Bowel Sounds - Rectal Exam Rectal Exam: Deferred Assessment and Plan (1) Leukocytosis Status: Acute (2) Pneumonia Status: Acute (3) Acute frontal sinusitis Status: Acute (4) Anemia Status: Acute (5) CLL (chronic lymphocytic leukemia) Status: Acute (6) Chronic lymphocytic leukemia Status: Acute (7) Dehydration Status: Acute (8) Dyspnea Status: Acute (9) Facial abscess Status: Acute (10) Facial asymmetry Status: Acute (11) HTN (hypertension) Status: Acute (12) Leukopenia Status: Acute (13) Lymphoma Status: Acute (14) Neutropenic sepsis Status: Acute (15) Pruritic rash Status: Acute (16) Submandibular lymphadenitis Status: Acute (17) Submandibular lymphadenopathy Status: Acute
[2017-01-17] MEDS: Azithromycin 500 MG in Sodium Chloride 0.9% 250 ML IVPB SCH (18:14)
[2017-01-17] MEDS: Promethazine DM 12.5 mg-30 mg/10 ml Syrup PO SCH (18:20)
[2017-01-17] MEDS: Sodium Chloride 0.9% 1,000 ML IV SCH (22:00)
[2017-01-18] MEDS: Promethazine DM 12.5 mg-30 mg/10 ml Syrup PO SCH ×4 (00:12→19:33)
[2017-01-18] MEDS: Albuterol-Ipratrop 3 mg / 0.5 (3 ml) UD INH SCH ×4 (01:23→19:46)
[2017-01-18] MEDS: Sodium Chloride 0.9% 1,000 ML IV SCH (05:41)
[2017-01-18] MEDS: Enoxaparin 40 mg Syringe SC SCH (09:40)
[2017-01-18] MEDS: Naproxen 550 mg Tab PO SCH ×2 (09:40→19:31)
[2017-01-18] MEDS: Cefepime IV 1 gm in Dextrose 1 GM/50 ML BAG IVPB SCH ×2 (11:52→22:50)
--- NOTE | 2017-01-18 12:37 | CP.PCM.PN ---
Subjective - Date & Time of Evaluation Date of Evaluation: 01/18/17 Time of Evaluation: 11:00 - Subjective Subjective: clinically same Objective - Vital Signs/Intake and Output Vital Signs (last 24 hours): Temp Pulse Resp BP Pulse Ox 98.0 F 67 20 133/71 99 01/18/17 09:49 01/18/17 09:49 01/18/17 09:49 01/18/17 09:49 01/18/17 09:49 Intake and Output: 01/18/17 01/18/17 06:59 18:59 Intake Total 740 Output Total 400 Balance 340 - Medications Medications: Current Medications Acetaminophen (Tylenol 325mg Tab) 650 mg PO Q6 PRN PRN Reason: Fever >100.4 F Albuterol/Ipratropium (Duoneb 3 Mg/0.5 Mg (3 Ml) Ud) 3 ml INH RQ6 [facility] Last Admin: 01/18/17 07:35 Dose: 3 ml Enoxaparin Sodium (Lovenox) 40 mg SC DAILY [facility] Last Admin: 01/18/17 09:40 Dose: 40 mg Famotidine (Pepcid) 20 mg PO BID [facility] Last Admin: 01/18/17 09:40 Dose: 20 mg Cefepime HCl (Maxipime Iv 1 Gm Premix) 1 gm in 50 mls @ 100 mls/hr IVPB Q12H [facility] Last Admin: 01/18/17 11:52 Dose: 100 mls/hr Sodium Chloride (Sodium Chloride 0.9%) 1,000 mls @ 80 mls/hr IV .[id number] [facility] Last Admin: 01/18/17 05:41 Dose: Not Given Azithromycin 500 mg/ Sodium (Chloride) 250 mls @ 166.667 mls/hr IVPB Q24H [facility] Last Admin: 01/17/17 18:14 Dose: 166.667 mls/hr Naproxen (Anaprox Ds) 550 mg PO BID [facility] Last Admin: 01/18/17 09:40 Dose: 550 mg Promethazine HCl/Dextromethorphan (Phenergan Dm Syrup) 10 ml PO Q6 [facility] Last Admin: 01/18/17 11:52 Dose: 10 ml - Labs Labs: 01/17/17 08:01 01/17/17 08:01 PT 13.2 SECONDS (9.7-12.2) H 01/14/17 17:13 INR 1.2 01/14/17 17:13 APTT 25 SECONDS (21-34) 01/14/17 17:13 Assessment and Plan (1) Leukocytosis Status: Acute (2) Pneumonia Status: Acute (3) Acute frontal sinusitis Status: Acute (4) Anemia Status: Acute (5) CLL (chronic lymphocytic leukemia) Status: Acute (6) Chronic lymphocytic leukemia Status: Acute (7) Dehydration Status: Acute (8) Dyspnea Status: Acute (9) Facial abscess Status: Acute (10) Facial asymmetry Status: Acute (11) HTN (hypertension) Status: Acute (12) Leukopenia Status: Acute (13) Lymphoma Status: Acute (14) Neutropenic sepsis Status: Acute (15) Pruritic rash Status: Acute (16) Submandibular lymphadenitis Status: Acute (17) Submandibular lymphadenopathy Status: Acute
[2017-01-18] MEDS: Azithromycin 500 MG in Sodium Chloride 0.9% 250 ML IVPB SCH (19:32)
[2017-01-19] MEDS: Sodium Chloride 0.9% 1,000 ML IV SCH (01:33)
[2017-01-19] MEDS: Albuterol-Ipratrop 3 mg / 0.5 (3 ml) UD INH SCH ×4 (01:40→20:39)
[2017-01-19] MEDS: Promethazine DM 12.5 mg-30 mg/10 ml Syrup PO SCH ×4 (05:23→18:00)
[2017-01-19] MEDS: Naproxen 550 mg Tab PO SCH ×2 (09:16→17:59)
[2017-01-19] MEDS: Enoxaparin 40 mg Syringe SC SCH (09:16)
--- NOTE | 2017-01-19 11:27 | CP.PCM.PN ---
Subjective - Date & Time of Evaluation Date of Evaluation: 01/19/17 Time of Evaluation: 07:40 - Subjective Subjective: PGY2 Resident - Medicine Progress Note Patient seen and examined at bedside. No acute distress. No overnight events. + Cough. Patient reports continued R ear pain and decreased hearing on the right side. Denies fever, chills, headache, changes in vision, chest pain, palpitations, dyspnea, abdominal pain, nausea/vomiting, diarrhea/constipation, or any additional acute complaints. Objective - Vital Signs/Intake and Output Vital Signs (last 24 hours): Temp Pulse Resp BP Pulse Ox 98.1 F 76 20 132/72 98 01/19/17 07:41 01/19/17 08:00 01/19/17 07:41 01/19/17 07:41 01/19/17 07:41 - Medications Medications: Current Medications Acetaminophen (Tylenol 325mg Tab) 650 mg PO Q6 PRN PRN Reason: Fever >100.4 F Albuterol/Ipratropium (Duoneb 3 Mg/0.5 Mg (3 Ml) Ud) 3 ml INH RQ6 [facility] Last Admin: 01/19/17 07:18 Dose: Not Given Enoxaparin Sodium (Lovenox) 40 mg SC DAILY [facility] Last Admin: 01/19/17 09:16 Dose: 40 mg Famotidine (Pepcid) 20 mg PO BID [facility] Last Admin: 01/19/17 09:16 Dose: 20 mg Cefepime HCl (Maxipime Iv 1 Gm Premix) 1 gm in 50 mls @ 100 mls/hr IVPB Q12H [facility] Last Admin: 01/18/17 22:50 Dose: 100 mls/hr Azithromycin 500 mg/ Sodium (Chloride) 250 mls @ 166.667 mls/hr IVPB Q24H [facility] Last Admin: 01/18/17 19:32 Dose: 166.667 mls/hr Naproxen (Anaprox Ds) 550 mg PO BID [facility] Last Admin: 01/19/17 09:16 Dose: 550 mg Promethazine HCl/Dextromethorphan (Phenergan Dm Syrup) 10 ml PO Q6 [facility] Last Admin: 01/19/17 05:23 Dose: 10 ml - Labs Labs: 01/17/17 08:01 01/17/17 08:01 PT 13.2 SECONDS (9.7-12.2) H 01/14/17 17:13 INR 1.2 01/14/17 17:13 APTT 25 SECONDS (21-34) 01/14/17 17:13 - Additional Findings Additional findings: - Constitutional Appears: Non-toxic, No Acute Distress - Head Exam Head Exam: ATRAUMATIC, NORMAL INSPECTION, NORMOCEPHALIC - Eye Exam Eye Exam: EOMI, Normal appearance - ENT Exam ENT Exam: Mucous Membranes Moist Note: No tenderness to palpation of b/l mastoid processes. No tenderness with traction of b/l ears. Tympanic membrane clear / intact. - Neck Exam Neck Exam: Full ROM, Normal Inspection - Respiratory Exam Respiratory Exam: Rhonchi (mild). absent: Clear to Ausculation Bilateral, NORMAL BREATHING PATTERN - Cardiovascular Exam Cardiovascular Exam: Regular Rate, +S1, +S2 - GI/Abdominal Exam GI & Abdominal Exam: Soft, Normal Bowel Sounds. absent: Tenderness - Neurological Exam Neurological Exam: Alert, Awake, Oriented x3 - Psychiatric Exam Psychiatric exam: Normal Affect, Normal Mood - Skin Skin Exam: Dry, Intact, Normal Color, Warm Assessment and Plan - Assessment and Plan (Free Text) Assessment: 1. Community acquired pna 01/19: continue Azithromycin 500mg IVPB Q24 (started 01/16) + Cefepime 1Gm IVPB Q12H (started 01/14). Patient is CTA. Continue Phenergan for cough. -CXR 01/14 - opacity at R lung base, possible RLL pneumonia. -r/o sepsis -continue azithromycin IV 500 mg daily (start date 01/15) -continue cefepime 1 g q 12 (start date 01/14) -continue duonebs RQ6 [facility] -ID consult. Dr. Katz. recs appreciated. -D5 1/2 NS 50 cc/hr -blood cultures negative x4days -urine cultures negative -sputum cultures negative -urine strep/mycoplasma negative -Flu negative -ESR elevated -serum procalcitonin 3.65 H -tylenol prn for pain 2. Ear pain/throat pain 01/19: Continue IV Abx above to cover for possible R otitis media/R mastoid effusion. Start Cepacol lozenges. -ENT consult. Dr. Dejesus. recs appreciated. -ID consult. Dr. Katz. recs appreciated. -CT facial bones - R otitis media; R mastoid effusion (see full report) -recommend warm compress of right TMJ + soft diet 3. Leukocytosis 01/19: WBC 8, resolved. -continue to monitor 4. hx of CLL 01/19: Dr. Gray cannot see pt. Will be seen by Dr. Chapman, help appreciated. -Dr. Gray consult. recs appreciated. 5. GI/DVT ppx -lovenox 40 -protonix daily
[2017-01-19 11:34] LABS: BASO % 0.5 % (0.0-2.0); EOS # 0.3 K/uL (0.0-0.7); EOS % 4.4 % (0.0-4.0); LYMPH # 4.6 K/uL (1.0-4.3); LYMPH % 57.8 % (20.0-40.0); MEAN CELL VOLUME 88.8 fL (80.0-94.0); MEAN CORPUSCULAR HEMOGLOBIN 29.7 pg (27.0-31.0); MEAN CORPUSCULAR HGB CONC 33.5 g/dL (33.0-37.0); MEAN PLATELET VOLUME 8.3 fL (7.2-11.7); MONO # 0.2 K/uL (0.0-0.8); MONO % 2.3 % (0.0-10.0); NRBC % 0.1 % (0.0-2.0); RED CELL DISTRIBUTION WIDTH 14.2 % (11.5-14.5)
[2017-01-19 12:01] LABS: ALB/GLOB RATIO 1.5 (1.0-2.1); ALKALINE PHOSPHATASE 53 U/L (38-126); ALT/SGPT 67 U/L (21-72); AST/SGOT 63 U/L (17-59); BILIRUBIN,TOTAL 0.6 mg/dL (0.2-1.3); BLOOD UREA NITROGEN 9 mg/dL (9-20); CALCIUM 8.2 mg/dl (8.6-10.4); CARBON DIOXIDE 25 mmol/L (22-30); CHLORIDE 104 mmol/L (98-107); GFR AFRICAN-AMERICAN > 60; GLUCOSE,RANDOM 75 mg/dL (75-110); MAGNESIUM 1.8 mg/dL (1.6-2.3); PHOSPHOROUS 3.1 mg/dL (2.5-4.5); POTASSIUM 4.5 mmol/L (3.6-5.2); SODIUM 136 mmol/L (132-148); TOTAL PROTEIN 5.2 g/dL (6.3-8.3)
[2017-01-19] MEDS: Cefepime IV 1 gm in Dextrose 1 GM/50 ML BAG IVPB SCH ×2 (14:14→22:48)
[2017-01-19] MEDS ORDERED: Benzocaine/Menthol (Cepacol) Lozenge MT PRN (14:49)
--- NOTE | 2017-01-19 15:17 | CP.PCM.PN ---
Subjective - Date & Time of Evaluation Date of Evaluation: 01/19/17 Time of Evaluation: 03:00 - Subjective Subjective: dictated Objective - Vital Signs/Intake and Output Vital Signs (last 24 hours): Temp Pulse Resp BP Pulse Ox 98.1 F 76 20 132/72 98 01/19/17 07:41 01/19/17 08:00 01/19/17 07:41 01/19/17 07:41 01/19/17 07:41 - Medications Medications: Current Medications Acetaminophen (Tylenol 325mg Tab) 650 mg PO Q6 PRN PRN Reason: Fever >100.4 F Albuterol/Ipratropium (Duoneb 3 Mg/0.5 Mg (3 Ml) Ud) 3 ml INH RQ6 [facility] Last Admin: 01/19/17 13:19 Dose: 3 ml Benzocaine/Menthol (Cepacol Sore Throat) 1 sandor MT Q6H PRN PRN Reason: Sore Throat Enoxaparin Sodium (Lovenox) 40 mg SC DAILY [facility] Last Admin: 01/19/17 09:16 Dose: 40 mg Famotidine (Pepcid) 20 mg PO BID [facility] Last Admin: 01/19/17 09:16 Dose: 20 mg Cefepime HCl (Maxipime Iv 1 Gm Premix) 1 gm in 50 mls @ 100 mls/hr IVPB Q12H [facility] Last Admin: 01/19/17 14:14 Dose: 100 mls/hr Naproxen (Anaprox Ds) 550 mg PO BID [facility] Last Admin: 01/19/17 09:16 Dose: 550 mg Promethazine HCl/Dextromethorphan (Phenergan Dm Syrup) 10 ml PO Q6 [facility] Last Admin: 01/19/17 14:14 Dose: 10 ml - Labs Labs: 01/19/17 11:22 01/19/17 11:22 PT 13.2 SECONDS (9.7-12.2) H 01/14/17 17:13 INR 1.2 01/14/17 17:13 APTT 25 SECONDS (21-34) 01/14/17 17:13
--- NOTE | 2017-01-19 18:54 | CP.PCM.PN ---
Subjective - Date & Time of Evaluation Date of Evaluation: 01/19/17 Time of Evaluation: 10:40 - Subjective Subjective: clinically same Objective - Vital Signs/Intake and Output Vital Signs (last 24 hours): Temp Pulse Resp BP Pulse Ox 97.8 F 82 18 112/68 95 01/19/17 15:56 01/19/17 15:56 01/19/17 15:56 01/19/17 15:56 01/19/17 15:56 - Medications Medications: Current Medications Acetaminophen (Tylenol 325mg Tab) 650 mg PO Q6 PRN PRN Reason: Fever >100.4 F Albuterol/Ipratropium (Duoneb 3 Mg/0.5 Mg (3 Ml) Ud) 3 ml INH RQ6 [facility] Last Admin: 01/19/17 13:19 Dose: 3 ml Benzocaine/Menthol (Cepacol Sore Throat) 1 sandor MT Q6H PRN PRN Reason: Sore Throat Enoxaparin Sodium (Lovenox) 40 mg SC DAILY [facility] Last Admin: 01/19/17 09:16 Dose: 40 mg Famotidine (Pepcid) 20 mg PO BID [facility] Last Admin: 01/19/17 17:59 Dose: 20 mg Cefepime HCl (Maxipime Iv 1 Gm Premix) 1 gm in 50 mls @ 100 mls/hr IVPB Q12H [facility] Last Admin: 01/19/17 14:14 Dose: 100 mls/hr Naproxen (Anaprox Ds) 550 mg PO BID [facility] Last Admin: 01/19/17 17:59 Dose: 550 mg Promethazine HCl/Dextromethorphan (Phenergan Dm Syrup) 10 ml PO Q6 [facility] Last Admin: 01/19/17 18:00 Dose: 10 ml - Labs Labs: 01/19/17 11:22 01/19/17 11:22 PT 13.2 SECONDS (9.7-12.2) H 01/14/17 17:13 INR 1.2 01/14/17 17:13 APTT 25 SECONDS (21-34) 01/14/17 17:13 Assessment and Plan (1) Leukocytosis Status: Acute (2) Pneumonia Status: Acute (3) Acute frontal sinusitis Status: Acute (4) Anemia Status: Acute (5) CLL (chronic lymphocytic leukemia) Status: Acute (6) Chronic lymphocytic leukemia Status: Acute (7) Dehydration Status: Acute (8) Dyspnea Status: Acute (9) Facial abscess Status: Acute (10) Facial asymmetry Status: Acute (11) HTN (hypertension) Status: Acute (12) Leukopenia Status: Acute (13) Lymphoma Status: Acute (14) Neutropenic sepsis Status: Acute (15) Pruritic rash Status: Acute (16) Submandibular lymphadenitis Status: Acute (17) Submandibular lymphadenopathy Status: Acute
--- NOTE | 2017-01-19 21:05 | CP.PCM.CON ---
Past Patient History - Past Medical History & Family History Past Medical History?: No - Past Social History Smoking Status: Never Smoked - CARDIAC Hx Hypertension: Yes - HEMATOLOGICAL/ONCOLOGICAL Hx Chemotherapy: Yes ((from previous triage)) Hx Leukemia: Yes (CLL (from previous triage)) - MUSCULOSKELETAL/RHEUMATOLOGICAL Hx Falls: No - GENITOURINARY/GYNECOLOGICAL Hx Prostate Problems: No - PSYCHIATRIC Hx Substance Use: No - SURGICAL HISTORY Hx Surgeries: Yes Other/Comment: Prostate Sx - ANESTHESIA Hx Anesthesia: Yes Hx Anesthesia Reactions: No Hx Malignant Hyperthermia: No Meds Allergies/Adverse Reactions: Allergies Allergy/AdvReac Type Severity Reaction Status Date / Time No Known Allergies Allergy Verified 01/14/17 16:08 - Medications Medications: Current Medications Acetaminophen (Tylenol 325mg Tab) 650 mg PO Q6 PRN PRN Reason: Fever >100.4 F Albuterol/Ipratropium (Duoneb 3 Mg/0.5 Mg (3 Ml) Ud) 3 ml INH RQ6 [facility] Last Admin: 01/19/17 20:39 Dose: Not Given Benzocaine/Menthol (Cepacol Sore Throat) 1 sandor MT Q6H PRN PRN Reason: Sore Throat Enoxaparin Sodium (Lovenox) 40 mg SC DAILY [facility] Last Admin: 01/19/17 09:16 Dose: 40 mg Famotidine (Pepcid) 20 mg PO BID [facility] Last Admin: 01/19/17 17:59 Dose: 20 mg Cefepime HCl (Maxipime Iv 1 Gm Premix) 1 gm in 50 mls @ 100 mls/hr IVPB Q12H [facility] Last Admin: 01/19/17 14:14 Dose: 100 mls/hr Naproxen (Anaprox Ds) 550 mg PO BID [facility] Last Admin: 01/19/17 17:59 Dose: 550 mg Promethazine HCl/Dextromethorphan (Phenergan Dm Syrup) 10 ml PO Q6 [facility] Last Admin: 01/19/17 18:00 Dose: 10 ml Results - Vital Signs Recent Vital Signs: Last Vital Signs Temp 97.8 F 01/19/17 15:56 Pulse 82 01/19/17 15:56 Resp 18 01/19/17 15:56 BP 112/68 01/19/17 15:56 Pulse Ox 95 01/19/17 15:56 - Labs Result Diagrams: 01/19/17 11:22 01/19/17 11:22 Labs: Laboratory Results - last 24 hr 01/19/17 01/19/17 11:22 11:22 WBC 8.0 RBC 4.05 L Hgb 12.1 Hct 36.0 MCV 88.8 MCH 29.7 MCHC 33.5 RDW 14.2 Plt Count 236 MPV 8.3 Neut % (Auto) 35.0 L Lymph % (Auto) 57.8 H [place] % (Auto) 2.3 Eos % (Auto) 4.4 H Baso % (Auto) 0.5 Neut # 2.8 Lymph # 4.6 H [place] # 0.2 Eos # 0.3 Baso # 0.0 Sodium 136 Potassium 4.5 Chloride 104 Carbon Dioxide 25 Anion Gap 11 BUN 9 Creatinine 0.9 Est GFR ( Amer) > 60 Est GFR (Non-Af Amer) > 60 Random Glucose 75 Calcium 8.2 L Phosphorus 3.1 Magnesium 1.8 Total Bilirubin 0.6 AST 63 H D ALT 67 Alkaline Phosphatase 53 Total Protein 5.2 L Albumin 3.1 L Globulin 2.1 L Albumin/Globulin Ratio 1.5
[2017-01-20] MEDS: Promethazine DM 12.5 mg-30 mg/10 ml Syrup PO SCH ×4 (00:09→17:28)
[2017-01-20] MEDS: Albuterol-Ipratrop 3 mg / 0.5 (3 ml) UD INH SCH ×4 (01:34→20:25)
--- NOTE | 2017-01-20 02:38 | PN ---
DATE: SUBJECTIVE: The patient was seen today. He was complaining of ear pain and deafness now. He said that deafness was new, it just started recently. He had been seen by Dr. Dejesus and he needs to be seen by him again. He is on antibiotics, Maxipime as well as Zithromax, but his Mycoplasma and Legionella came out negative, and so I plan to discontinue that. I discussed it with the resident. We will get an x-ray done tomorrow. He is not complaining of any shortness of breath. He does complain of deafness. PHYSICAL EXAMINATION: VITAL SIGNS: On the right ear, T-max is 97.8, pulse 82, blood pressure 112/68, respirations are 18. HEENT: Head is atraumatic, normocephalic. NECK: Supple. HEART: S1, S2 is regular. LUNGS: Clear. No crackles or rales heard. Occasional rhonchi. ABDOMEN: Soft, nontender. No guarding, no rigidity present. EXTREMITIES: No edema. LABORATORY DATA: White count is 8, hemoglobin 12.1, hematocrit 36, platelet count is 236, BUN is 9, creatinine 0.9, and serology was all negative. ASSESSMENT AND PLAN: So my impression is this patient came in with pneumonia and he has otitis media. He also has cholesteatoma behind the right ear. So plan is to get a chest x-ray tomorrow, follow, and he will also need ENT followup. A portable chest x-ray will be repeated tomorrow to see how the pneumonia is doing at this time. Chino Katz MD
[2017-01-20 08:24] LABS: BASO # 0.1 K/uL (0.0-0.2); BASO % 0.6 % (0.0-2.0); EOS # 0.3 K/uL (0.0-0.7); EOS % 3.6 % (0.0-4.0); HEMATOCRIT 38.7 % (35.0-51.0); LYMPH # 5.6 K/uL (1.0-4.3); LYMPH % 63.8 % (20.0-40.0); MEAN CELL VOLUME 88.5 fL (80.0-94.0); MEAN CORPUSCULAR HEMOGLOBIN 29.9 pg (27.0-31.0); MEAN CORPUSCULAR HGB CONC 33.8 g/dL (33.0-37.0); MEAN PLATELET VOLUME 7.8 fL (7.2-11.7); MONO # 0.2 K/uL (0.0-0.8); MONO % 2.2 % (0.0-10.0); NRBC % 0.2 % (0.0-2.0); RED CELL DISTRIBUTION WIDTH 14.5 % (11.5-14.5); WHITE BLOOD COUNT 8.8 K/uL (4.8-10.8)
[2017-01-20 08:48] LABS: ALKALINE PHOSPHATASE 57 U/L (38-126); ALT/SGPT 76 U/L (21-72); AST/SGOT 52 U/L (17-59); BILIRUBIN,TOTAL 0.5 mg/dL (0.2-1.3); BLOOD UREA NITROGEN 10 mg/dL (9-20); CALCIUM 8.5 mg/dl (8.6-10.4); CARBON DIOXIDE 24 mmol/L (22-30); CHLORIDE 104 mmol/L (98-107); GFR AFRICAN-AMERICAN > 60; GLUCOSE,RANDOM 71 mg/dL (75-110); MAGNESIUM 1.8 mg/dL (1.6-2.3); PHOSPHOROUS 3.6 mg/dL (2.5-4.5); POTASSIUM 4.2 mmol/L (3.6-5.2); SODIUM 135 mmol/L (132-148)
--- NOTE | 2017-01-20 09:27 | CP.PCM.PN ---
Subjective - Date & Time of Evaluation Date of Evaluation: 01/20/17 Time of Evaluation: 09:27 - Subjective Subjective: PGY2 Medicine Note for Dr. Ryan Finch; all management as per Dr. Ryan Finch Patient seen and examined at bedside this AM; denies any cough, SOB, abdominal pain, chest pain, KHAN, N/V/D, dysuria/freq/urg, or lower extremity pain/swelling , gait abnormalities or trouble with PO. Patient is hard of hearing. Objective - Vital Signs/Intake and Output Vital Signs (last 24 hours): Temp Pulse Resp BP Pulse Ox 97.6 F 62 20 134/78 96 01/20/17 08:21 01/20/17 08:21 01/20/17 08:21 01/20/17 08:21 01/20/17 08:21 Intake and Output: 01/20/17 01/20/17 06:59 18:59 Intake Total 240 Output Total 200 Balance 40 - Medications Medications: Current Medications Acetaminophen (Tylenol 325mg Tab) 650 mg PO Q6 PRN PRN Reason: Fever >100.4 F Albuterol/Ipratropium (Duoneb 3 Mg/0.5 Mg (3 Ml) Ud) 3 ml INH RQ6 [facility] Last Admin: 01/20/17 07:30 Dose: Not Given Benzocaine/Menthol (Cepacol Sore Throat) 1 sandor MT Q6H PRN PRN Reason: Sore Throat Enoxaparin Sodium (Lovenox) 40 mg SC DAILY [facility] Last Admin: 01/19/17 09:16 Dose: 40 mg Famotidine (Pepcid) 20 mg PO BID [facility] Last Admin: 01/19/17 17:59 Dose: 20 mg Cefepime HCl (Maxipime Iv 1 Gm Premix) 1 gm in 50 mls @ 100 mls/hr IVPB Q12H [facility] Last Admin: 01/19/17 22:48 Dose: 100 mls/hr Naproxen (Anaprox Ds) 550 mg PO BID [facility] Last Admin: 01/19/17 17:59 Dose: 550 mg Promethazine HCl/Dextromethorphan (Phenergan Dm Syrup) 10 ml PO Q6 [facility] Last Admin: 01/20/17 05:38 Dose: 10 ml - Labs Labs: 01/20/17 08:13 01/20/17 08:13 PT 13.2 SECONDS (9.7-12.2) H 01/14/17 17:13 INR 1.2 01/14/17 17:13 APTT 25 SECONDS (21-34) 01/14/17 17:13 - Constitutional Appears: Non-toxic - Head Exam Head Exam: ATRAUMATIC, NORMAL INSPECTION - Eye Exam Eye Exam: EOMI Pupil Exam: PERRL - ENT Exam ENT Exam: Mucous Membranes Moist - Neck Exam Neck Exam: Full ROM. absent: Lymphadenopathy - Respiratory Exam Respiratory Exam: Clear to Ausculation Bilateral, NORMAL BREATHING PATTERN. absent: Rales, Rhonchi, Wheezes, Respiratory Distress, Stridor - Cardiovascular Exam Cardiovascular Exam: REGULAR RHYTHM, +S1, +S2 - GI/Abdominal Exam GI & Abdominal Exam: Soft, Normal Bowel Sounds. absent: Tenderness - Rectal Exam Rectal Exam: Deferred - Extremities Exam Extremities Exam: Full ROM. absent: Calf Tenderness - Back Exam Back Exam: NORMAL INSPECTION. absent: CVA tenderness (L), CVA tenderness (R) - Neurological Exam Neurological Exam: Alert, Awake, Oriented x3 - Psychiatric Exam Psychiatric exam: Normal Mood - Skin Skin Exam: Warm Assessment and Plan - Assessment and Plan (Free Text) Assessment: 76yo M admitted for Community Acquired Pneumonia which is resolving Community acquired pna;resolving Cefepime 1Gm IVPB Q12H (started 01/14). Patient is CTA saturating well on room air -Continue Phenergan for cough. -CXR 01/14 - opacity at R lung base, possible RLL pneumonia; much improved on portable chest -continue cefepime 1 g q 12 (start date 01/14) as per ID; Dr. Katz -continue duonebs RQ6 [facility] -blood cultures negative x5days -urine cultures negative -sputum cultures negative -urine strep/mycoplasma negative -Flu negative -ESR elevated -serum procalcitonin 3.65 H -tylenol prn for pain Ear pain/throat pain;resolved Continue IV Abx above to cover for possible R otitis media/R mastoid effusion. Cepacol lozenges. -ENT consult. Dr. Dejesus. recs appreciated: NTd at this time -ID consult. Dr. Katz. recs appreciated. -CT facial bones - R otitis media; R mastoid effusion (see full report) -recommend warm compress of right TMJ + soft diet Leukocytosis; resolved 01/19: WBC 8, resolved. -continue to monitor hx of CLL 01/19: Dr. Gray cannot see pt. Will be seen by Dr. Chapman, help appreciated. -Dr. Gray consult. recs appreciated. GI/DVT ppx -lovenox 40 -protonix daily All management as per Dr. Ryan Finch
--- NOTE | 2017-01-20 10:28 | RAD ---
Chest x-ray single frontal view History: Pneumonia. Comparison: 01/14/2017 Findings: Mild patchy increased markings at the lung bases which may represent minimal atelectasis versus subtle infiltrate. Clinical correlation. Mild venous congestion. Few left upper lobe granulomatous changes. Bibasilar breast and nipple shadows. Heart size within normal limits. Right hilar prominence. Degenerative changes in the spine and shoulders. Impression: Mild patchy increased markings at the lung bases which may represent minimal atelectasis versus subtle infiltrate. Clinical correlation. Mild venous congestion. Few left upper lobe granulomatous changes. Bibasilar breast and nipple shadows. Heart size within normal limits. Right hilar prominence.
[2017-01-20] MEDS: Enoxaparin 40 mg Syringe SC SCH (11:01)
[2017-01-20] MEDS: Naproxen 550 mg Tab PO SCH ×2 (11:01→17:27)
[2017-01-20] MEDS: Cefepime IV 1 gm in Dextrose 1 GM/50 ML BAG IVPB SCH ×2 (11:01→22:31)
--- NOTE | 2017-01-20 13:54 | CP.PCM.PN ---
Subjective - Date & Time of Evaluation Date of Evaluation: 01/20/17 Time of Evaluation: 01:50 - Subjective Subjective: dictated Objective - Vital Signs/Intake and Output Vital Signs (last 24 hours): Temp Pulse Resp BP Pulse Ox 97.6 F 58 L 20 134/78 96 01/20/17 08:21 01/20/17 11:28 01/20/17 08:21 01/20/17 08:21 01/20/17 08:21 Intake and Output: 01/20/17 01/20/17 06:59 18:59 Intake Total 240 Output Total 200 Balance 40 - Medications Medications: Current Medications Acetaminophen (Tylenol 325mg Tab) 650 mg PO Q6 PRN PRN Reason: Fever >100.4 F Albuterol/Ipratropium (Duoneb 3 Mg/0.5 Mg (3 Ml) Ud) 3 ml INH RQ6 [facility] Last Admin: 01/20/17 13:27 Dose: 3 ml Benzocaine/Menthol (Cepacol Sore Throat) 1 sandor MT Q6H PRN PRN Reason: Sore Throat Enoxaparin Sodium (Lovenox) 40 mg SC DAILY [facility] Last Admin: 01/20/17 11:01 Dose: 40 mg Famotidine (Pepcid) 20 mg PO BID [facility] Last Admin: 01/20/17 11:01 Dose: 20 mg Cefepime HCl (Maxipime Iv 1 Gm Premix) 1 gm in 50 mls @ 100 mls/hr IVPB Q12H [facility] Last Admin: 01/20/17 11:01 Dose: 100 mls/hr Naproxen (Anaprox Ds) 550 mg PO BID [facility] Last Admin: 01/20/17 11:01 Dose: 550 mg Promethazine HCl/Dextromethorphan (Phenergan Dm Syrup) 10 ml PO Q6 [facility] Last Admin: 01/20/17 05:38 Dose: 10 ml - Labs Labs: 01/20/17 08:13 01/20/17 08:13 PT 13.2 SECONDS (9.7-12.2) H 01/14/17 17:13 INR 1.2 01/14/17 17:13 APTT 25 SECONDS (21-34) 01/14/17 17:13
--- NOTE | 2017-01-20 14:16 | CP.PCM.CON ---
History of Present Illness - History of Present Illness History of Present Illness: 76 year old male with a history of CLL s/p treatment with Dr. Gray, admitted with community aquired pneumonia. The patient reports to chest congestion and difficulty breathing which prompted him to come to the ER. He has been receiving antibiotics for pneumonia and reports to feeling better. He does have some mild right ear discomfort and intermittent tremors in his hands. He notes his breathing is improved. Past medical history: CLL Past surgical history: None Family history: Denies hematologic and oncologic problems Social history: Denies tobacco, alcohol, and illicit drug use. Allergies: NKA Review of systems: All remaining review of systems including HEENT, cardiovascular, respiratory, gastrointestinal, genitourinary, musculoskeletal, dermatologic, neurologic, and psychiatric are negative unless mentioned in the HPI. Past Patient History - Past Medical History & Family History Past Medical History?: No - Past Social History Smoking Status: Never Smoked - CARDIAC Hx Hypertension: Yes - HEMATOLOGICAL/ONCOLOGICAL Hx Chemotherapy: Yes ((from previous triage)) Hx Leukemia: Yes (CLL (from previous triage)) - MUSCULOSKELETAL/RHEUMATOLOGICAL Hx Falls: No - GENITOURINARY/GYNECOLOGICAL Hx Prostate Problems: No - PSYCHIATRIC Hx Substance Use: No - SURGICAL HISTORY Hx Surgeries: Yes Other/Comment: Prostate Sx - ANESTHESIA Hx Anesthesia: Yes Hx Anesthesia Reactions: No Hx Malignant Hyperthermia: No Meds Allergies/Adverse Reactions: Allergies Allergy/AdvReac Type Severity Reaction Status Date / Time No Known Allergies Allergy Verified 01/14/17 16:08 - Medications Medications: Current Medications Acetaminophen (Tylenol 325mg Tab) 650 mg PO Q6 PRN PRN Reason: Fever >100.4 F Albuterol/Ipratropium (Duoneb 3 Mg/0.5 Mg (3 Ml) Ud) 3 ml INH RQ6 [facility] Last Admin: 01/20/17 13:27 Dose: 3 ml Benzocaine/Menthol (Cepacol Sore Throat) 1 sandor MT Q6H PRN PRN Reason: Sore Throat Enoxaparin Sodium (Lovenox) 40 mg SC DAILY [facility] Last Admin: 01/20/17 11:01 Dose: 40 mg Famotidine (Pepcid) 20 mg PO BID [facility] Last Admin: 01/20/17 11:01 Dose: 20 mg Cefepime HCl (Maxipime Iv 1 Gm Premix) 1 gm in 50 mls @ 100 mls/hr IVPB Q12H [facility] Last Admin: 01/20/17 11:01 Dose: 100 mls/hr Naproxen (Anaprox Ds) 550 mg PO BID [facility] Last Admin: 01/20/17 11:01 Dose: 550 mg Neomycin/Polymyxin/Hydrocortisone (Cortisporin Otic Soln) 4 drop AU QID [facility] Promethazine HCl/Dextromethorphan (Phenergan Dm Syrup) 10 ml PO Q6 [facility] Last Admin: 01/20/17 05:38 Dose: 10 ml Physical Exam - Head Exam Head Exam: ATRAUMATIC - Eye Exam Eye Exam: Normal appearance - ENT Exam ENT Exam: Mucous Membranes Dry - Respiratory Exam Respiratory Exam: NORMAL BREATHING PATTERN - Cardiovascular Exam Cardiovascular Exam: +S1, +S2 - GI/Abdominal Exam GI & Abdominal Exam: Normal Bowel Sounds - Neurological Exam Neurological exam: Oriented x3 - Psychiatric Exam Psychiatric exam: Normal Affect, Normal Mood - Skin Skin Exam: Warm Results - Vital Signs Recent Vital Signs: Last Vital Signs Temp 97.6 F 01/20/17 08:21 Pulse 58 L 01/20/17 11:28 Resp 20 01/20/17 08:21 BP 134/78 01/20/17 08:21 Pulse Ox 96 01/20/17 08:21 - Labs Result Diagrams: 01/20/17 08:13 01/20/17 08:13 Labs: Laboratory Results - last 24 hr 01/20/17 01/20/17 01/20/17 08:13 08:13 08:13 WBC 8.8 RBC 4.37 L Hgb 13.1 Hct 38.7 MCV 88.5 MCH 29.9 MCHC 33.8 RDW 14.5 Plt Count 277 MPV 7.8 Neut % (Auto) 29.8 L Lymph % (Auto) 63.8 H Norman % (Auto) 2.2 Eos % (Auto) 3.6 Baso % (Auto) 0.6 Neut # 2.6 Lymph # 5.6 H Norman # 0.2 Eos # 0.3 Baso # 0.1 Sodium 135 Potassium 4.2 Chloride 104 Carbon Dioxide 24 Anion Gap 11 BUN 10 Creatinine 1.0 Est GFR ( Amer) > 60 Est GFR (Non-Af Amer) > 60 Random Glucose 71 L Calcium 8.5 L Phosphorus 3.6 Magnesium 1.8 Total Bilirubin 0.5 AST 52 ALT 76 H Alkaline Phosphatase 57 Total Protein 7.0 Albumin 3.5 Globulin 3.5 Albumin/Globulin Ratio 1.0 Procalcitonin 0.30 Assessment & Plan (1) CLL (chronic lymphocytic leukemia) Assessment and Plan: in remission outpatient f/u with Dr. Gray Status: Acute (2) Anemia Assessment and Plan: mild likely related to CLL Thank you for this interesting consult. Status: Acute
--- NOTE | 2017-01-20 14:19 | CP.PCM.PN ---
Subjective - Date & Time of Evaluation Date of Evaluation: 01/20/17 Time of Evaluation: 12:20 - Subjective Subjective: Has tremors in hands Objective - Vital Signs/Intake and Output Vital Signs (last 24 hours): Temp Pulse Resp BP Pulse Ox 97.6 F 58 L 20 134/78 96 01/20/17 08:21 01/20/17 11:28 01/20/17 08:21 01/20/17 08:21 01/20/17 08:21 Intake and Output: 01/20/17 01/20/17 06:59 18:59 Intake Total 240 Output Total 200 Balance 40 - Medications Medications: Current Medications Acetaminophen (Tylenol 325mg Tab) 650 mg PO Q6 PRN PRN Reason: Fever >100.4 F Albuterol/Ipratropium (Duoneb 3 Mg/0.5 Mg (3 Ml) Ud) 3 ml INH RQ6 [facility] Last Admin: 01/20/17 13:27 Dose: 3 ml Benzocaine/Menthol (Cepacol Sore Throat) 1 sandor MT Q6H PRN PRN Reason: Sore Throat Enoxaparin Sodium (Lovenox) 40 mg SC DAILY [facility] Last Admin: 01/20/17 11:01 Dose: 40 mg Famotidine (Pepcid) 20 mg PO BID [facility] Last Admin: 01/20/17 11:01 Dose: 20 mg Cefepime HCl (Maxipime Iv 1 Gm Premix) 1 gm in 50 mls @ 100 mls/hr IVPB Q12H [facility] Last Admin: 01/20/17 11:01 Dose: 100 mls/hr Naproxen (Anaprox Ds) 550 mg PO BID [facility] Last Admin: 01/20/17 11:01 Dose: 550 mg Neomycin/Polymyxin/Hydrocortisone (Cortisporin Otic Soln) 4 drop AU QID [facility] Promethazine HCl/Dextromethorphan (Phenergan Dm Syrup) 10 ml PO Q6 [facility] Last Admin: 01/20/17 05:38 Dose: 10 ml - Labs Labs: 01/20/17 08:13 01/20/17 08:13 PT 13.2 SECONDS (9.7-12.2) H 01/14/17 17:13 INR 1.2 01/14/17 17:13 APTT 25 SECONDS (21-34) 01/14/17 17:13 - Head Exam Head Exam: ATRAUMATIC - Eye Exam Eye Exam: Normal appearance - ENT Exam ENT Exam: Mucous Membranes Dry - Respiratory Exam Respiratory Exam: NORMAL BREATHING PATTERN - Cardiovascular Exam Cardiovascular Exam: +S1, +S2 - GI/Abdominal Exam GI & Abdominal Exam: Normal Bowel Sounds Assessment and Plan (1) CLL (chronic lymphocytic leukemia) Assessment & Plan: in remission outpatient f/u with Dr. Gray Status: Acute (2) Anemia Assessment & Plan: mild no intervention Status: Acute
[2017-01-20] MEDS: Neomycin/Polymyxin/Hydrocort Otic Soln BOTTLE AU SCH ×2 (17:28→22:32)
--- NOTE | 2017-01-20 17:46 | CP.PCM.PN ---
Subjective - Date & Time of Evaluation Date of Evaluation: 01/20/17 Time of Evaluation: 08:40 - Subjective Subjective: clinically same Objective - Vital Signs/Intake and Output Vital Signs (last 24 hours): Temp Pulse Resp BP Pulse Ox 98.2 F 61 18 128/75 99 01/20/17 16:00 01/20/17 16:00 01/20/17 16:00 01/20/17 16:00 01/20/17 16:00 Intake and Output: 01/20/17 01/20/17 06:59 18:59 Intake Total 240 Output Total 200 Balance 40 - Medications Medications: Current Medications Acetaminophen (Tylenol 325mg Tab) 650 mg PO Q6 PRN PRN Reason: Fever >100.4 F Albuterol/Ipratropium (Duoneb 3 Mg/0.5 Mg (3 Ml) Ud) 3 ml INH RQ6 [facility] Last Admin: 01/20/17 13:27 Dose: 3 ml Benzocaine/Menthol (Cepacol Sore Throat) 1 sandor MT Q6H PRN PRN Reason: Sore Throat Enoxaparin Sodium (Lovenox) 40 mg SC DAILY [facility] Last Admin: 01/20/17 11:01 Dose: 40 mg Famotidine (Pepcid) 20 mg PO BID [facility] Last Admin: 01/20/17 17:28 Dose: 20 mg Cefepime HCl (Maxipime Iv 1 Gm Premix) 1 gm in 50 mls @ 100 mls/hr IVPB Q12H [facility] Last Admin: 01/20/17 11:01 Dose: 100 mls/hr Naproxen (Anaprox Ds) 550 mg PO BID [facility] Last Admin: 01/20/17 17:27 Dose: 550 mg Neomycin/Polymyxin/Hydrocortisone (Cortisporin Otic Soln) 4 drop AU QID [facility] Last Admin: 01/20/17 17:28 Dose: 4 drop Promethazine HCl/Dextromethorphan (Phenergan Dm Syrup) 10 ml PO Q6 [facility] Last Admin: 01/20/17 17:28 Dose: 10 ml - Labs Labs: 01/20/17 08:13 01/20/17 08:13 PT 13.2 SECONDS (9.7-12.2) H 01/14/17 17:13 INR 1.2 01/14/17 17:13 APTT 25 SECONDS (21-34) 01/14/17 17:13 Assessment and Plan (1) Leukocytosis Status: Acute (2) Pneumonia Status: Acute (3) Acute frontal sinusitis Status: Acute (4) Anemia Status: Acute (5) CLL (chronic lymphocytic leukemia) Status: Acute (6) Chronic lymphocytic leukemia Status: Acute (7) Dehydration Status: Acute (8) Dyspnea Status: Acute (9) Facial abscess Status: Acute (10) Facial asymmetry Status: Acute (11) HTN (hypertension) Status: Acute (12) Leukopenia Status: Acute (13) Lymphoma Status: Acute (14) Neutropenic sepsis Status: Acute (15) Pruritic rash Status: Acute (16) Submandibular lymphadenitis Status: Acute (17) Submandibular lymphadenopathy Status: Acute
--- NOTE | 2017-01-20 18:39 | PN ---
DATE: SUBJECTIVE: Patient is awake and alert. He is trying to eat. 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 He cannot hear and this happened on this admission. He is denying any throat problems right now. Denies any pain around the ear. PHYSICAL EXAMINATION: VITAL SIGNS: T-max is 97.6, pulse 62, blood pressure 134/78, respirations 20. HEENT: Head is atraumatic and normocephalic. NECK: Supple. LUNGS: Clear. HEART: S1 and S2, regular. ABDOMEN: Soft, nontender. No guarding. No rigidity present. EXTREMITIES: Have no edema. He has been here from 01/14/2017 or like 6 days today. An x-ray was done today and the x-ray shows mild, but increased marking at lung base which may represent mild atelectasis versus subtle infiltrate. LABORATORY DATA: Labs are noted. Labs seem to be fine except that his liver enzymes are mildly elevated. His procalcitonin level on 01/16/2017 was 3.65. I will repeat the procalcitonin level tomorrow. ESR was 90. 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 At this time, I am waiting for the procalcitonin level. This was ordered for day, maybe the results are pending. It was for today, so we will wait for that and at this time we will continue antibiotic. If he is better tomorrow, maybe we will send him home with oral antibiotic. I would prefer Vantin 200 b.i.d for a week and we will add Cortisporin eyedrops as that was the only drops I found here and he needs to follow up with ENT. Chino Katz MD
[2017-01-21] MEDS: Promethazine DM 12.5 mg-30 mg/10 ml Syrup PO SCH ×4 (00:16→18:50)
[2017-01-21] MEDS: Albuterol-Ipratrop 3 mg / 0.5 (3 ml) UD INH SCH ×4 (01:40→19:59)
[2017-01-21 07:09] LABS: ALB/GLOB RATIO 1.4 (1.0-2.1); ALKALINE PHOSPHATASE 49 U/L (38-126); ALT/SGPT 55 U/L (21-72); AST/SGOT 36 U/L (17-59); BILIRUBIN,TOTAL 0.6 mg/dL (0.2-1.3); BLOOD UREA NITROGEN 14 mg/dL (9-20); CARBON DIOXIDE 25 mmol/L (22-30); CHLORIDE 103 mmol/L (98-107); GFR AFRICAN-AMERICAN > 60; GLUCOSE,RANDOM 83 mg/dL (75-110); MAGNESIUM 1.7 mg/dL (1.6-2.3); PHOSPHOROUS 3.7 mg/dL (2.5-4.5); POTASSIUM 4.1 mmol/L (3.6-5.2); SODIUM 134 mmol/L (132-148); TOTAL PROTEIN 5.2 g/dL (6.3-8.3)
[2017-01-21 07:23] LABS: BASO % 0.5 % (0.0-2.0); EOS # 0.3 K/uL (0.0-0.7); EOS % 3.2 % (0.0-4.0); HEMATOCRIT 34.7 % (35.0-51.0); LYMPH # 5.3 K/uL (1.0-4.3); LYMPH % 65.5 % (20.0-40.0); MEAN CELL VOLUME 88.4 fL (80.0-94.0); MEAN CORPUSCULAR HEMOGLOBIN 29.6 pg (27.0-31.0); MEAN CORPUSCULAR HGB CONC 33.5 g/dL (33.0-37.0); MEAN PLATELET VOLUME 7.9 fL (7.2-11.7); MONO # 0.3 K/uL (0.0-0.8); MONO % 3.3 % (0.0-10.0); NRBC % 0.1 % (0.0-2.0); RED CELL DISTRIBUTION WIDTH 14.2 % (11.5-14.5); WHITE BLOOD COUNT 8.1 K/uL (4.8-10.8)
[2017-01-21] MEDS: Naproxen 550 mg Tab PO SCH ×2 (10:04→18:50)
[2017-01-21] MEDS: Enoxaparin 40 mg Syringe SC SCH (10:04)
[2017-01-21] MEDS: Neomycin/Polymyxin/Hydrocort Otic Soln BOTTLE AU SCH ×4 (10:06→21:58)
--- NOTE | 2017-01-21 10:54 | CP.PCM.PN ---
Subjective - Date & Time of Evaluation Date of Evaluation: 01/21/17 Time of Evaluation: 07:55 - Subjective Subjective: PGY2 Resident - Medicine Progress Note Patient seen and examined at bedside. No acute distress. No overnight events. Cough improving. Patient denies R ear pain today, however hearing is decreased as patient has R > L cerumen impaction. Denies fever, chills, headache, changes in vision, chest pain, palpitations, dyspnea, abdominal pain, nausea/vomiting, diarrhea/constipation, or any additional acute complaints. Objective - Vital Signs/Intake and Output Vital Signs (last 24 hours): Temp Pulse Resp BP Pulse Ox 98.1 F 51 L 20 134/73 97 01/21/17 08:50 01/21/17 08:50 01/21/17 08:50 01/21/17 08:50 01/21/17 08:50 Intake and Output: 01/21/17 01/21/17 06:59 18:59 Intake Total 290 Balance 290 - Medications Medications: Current Medications Acetaminophen (Tylenol 325mg Tab) 650 mg PO Q6 PRN PRN Reason: Fever >100.4 F Albuterol/Ipratropium (Duoneb 3 Mg/0.5 Mg (3 Ml) Ud) 3 ml INH RQ6 [facility] Last Admin: 01/21/17 07:24 Dose: Not Given Benzocaine/Menthol (Cepacol Sore Throat) 1 sandor MT Q6H PRN PRN Reason: Sore Throat Enoxaparin Sodium (Lovenox) 40 mg SC DAILY [facility] Last Admin: 01/21/17 10:04 Dose: 40 mg Famotidine (Pepcid) 20 mg PO BID [facility] Last Admin: 01/21/17 10:04 Dose: 20 mg Cefepime HCl (Maxipime Iv 1 Gm Premix) 1 gm in 50 mls @ 100 mls/hr IVPB Q12H [facility] Last Admin: 01/20/17 22:31 Dose: 100 mls/hr Naproxen (Anaprox Ds) 550 mg PO BID [facility] Last Admin: 01/21/17 10:04 Dose: 550 mg Neomycin/Polymyxin/Hydrocortisone (Cortisporin Otic Soln) 4 drop AU QID [facility] Last Admin: 01/21/17 10:06 Dose: 4 drop Promethazine HCl/Dextromethorphan (Phenergan Dm Syrup) 10 ml PO Q6 [facility] Last Admin: 01/21/17 06:12 Dose: 10 ml - Labs Labs: 01/21/17 06:42 01/21/17 06:42 PT 13.2 SECONDS (9.7-12.2) H 01/14/17 17:13 INR 1.2 01/14/17 17:13 APTT 25 SECONDS (21-34) 01/14/17 17:13 - Additional Findings Additional findings: - Constitutional Appears: Non-toxic, No Acute Distress - Head Exam Head Exam: ATRAUMATIC, NORMAL INSPECTION, NORMOCEPHALIC - Eye Exam Eye Exam: EOMI, Normal appearance - ENT Exam ENT Exam: Mucous Membranes Moist Note: No tenderness to palpation of b/l mastoid processes. No tenderness with traction of b/l ears. Tympanic membrane clear / intact. Cerumen impaction in bilateral ears R > L. - Neck Exam Neck Exam: Full ROM, Normal Inspection - Respiratory Exam Respiratory Exam: Rhonchi (mild). absent: Clear to Ausculation Bilateral, NORMAL BREATHING PATTERN - Cardiovascular Exam Cardiovascular Exam: Regular Rate, +S1, +S2 - GI/Abdominal Exam GI & Abdominal Exam: Soft, Normal Bowel Sounds. absent: Tenderness - Neurological Exam Neurological Exam: Alert, Awake, Oriented x3 - Psychiatric Exam Psychiatric exam: Normal Affect, Normal Mood - Skin Skin Exam: Dry, Intact, Normal Color, Warm Assessment and Plan - Assessment and Plan (Free Text) Assessment: 76yo M admitted for Community Acquired Pneumonia which is resolving Community acquired pna;resolving 01/21: patient CTA, no SOB, no complaints. Cough resolved. 01/20: CXR showing mild venous congestion Cefepime 1Gm IVPB Q12H (started 01/14). Patient is CTA saturating well on room air -Continue Phenergan for cough. -CXR 01/14 - opacity at R lung base, possible RLL pneumonia; much improved on portable chest -continue cefepime 1 g q 12 (start date 01/14) as per ID; Dr. Katz -continue duonebs RQ6 [facility] -blood cultures negative x5days -urine cultures negative -sputum cultures negative -urine strep/mycoplasma negative -Flu negative -ESR elevated -serum procalcitonin 3.65 H -tylenol prn for pain Ear pain/throat pain;resolved Continue IV Abx above to cover for possible R otitis media/R mastoid effusion. Cepacol lozenges. -ENT consult. Dr. Dejesus. recs appreciated: NTd at this time -ID consult. Dr. Katz. recs appreciated. -CT facial bones - R otitis media; R mastoid effusion (see full report) -recommend warm compress of right TMJ + soft diet Cerumen Impaction (R greater than L) 01/21: Debrox BID - 5-10 drop in each ear Leukocytosis; resolved 01/19: WBC 8, resolved. -continue to monitor hx of CLL 01/21: Pt seen by Dr. Chapman, CLL in remission, to see Dr. Gray as outpatient. 01/19: Dr. Gray cannot see pt. Will be seen by Dr. Chapman, help appreciated. -Dr. Gray consult. recs appreciated. GI/DVT ppx -lovenox 40 -protonix daily Disposition: Stable for DC in the morning 01/22. Home transportation to be arranged by case/social (discussed). 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 Patient to continue OTC Debrox bilaterally for 5 days. Patient to continue PO antibiotics. All management as per Dr. Ryan Finch
[2017-01-21] MEDS: Cefepime IV 1 gm in Dextrose 1 GM/50 ML BAG IVPB SCH ×2 (10:58→22:49)
--- NOTE | 2017-01-21 14:36 | CP.PCM.PN ---
Subjective - Date & Time of Evaluation Date of Evaluation: 01/21/17 Time of Evaluation: 01:25 - Subjective Subjective: dictated Objective - Vital Signs/Intake and Output Vital Signs (last 24 hours): Temp Pulse Resp BP Pulse Ox 98.1 F 51 L 20 134/73 97 01/21/17 08:50 01/21/17 08:50 01/21/17 08:50 01/21/17 08:50 01/21/17 08:50 Intake and Output: 01/21/17 01/21/17 06:59 18:59 Intake Total 290 Balance 290 - Medications Medications: Current Medications Acetaminophen (Tylenol 325mg Tab) 650 mg PO Q6 PRN PRN Reason: Fever >100.4 F Albuterol/Ipratropium (Duoneb 3 Mg/0.5 Mg (3 Ml) Ud) 3 ml INH RQ6 [facility] Last Admin: 01/21/17 13:18 Dose: Not Given Benzocaine/Menthol (Cepacol Sore Throat) 1 sandor MT Q6H PRN PRN Reason: Sore Throat Carbamide Peroxide (Debrox Ear Drops) 0 ml AU BID [facility] Last Admin: 01/21/17 13:47 Dose: 1 drop Enoxaparin Sodium (Lovenox) 40 mg SC DAILY [facility] Last Admin: 01/21/17 10:04 Dose: 40 mg Famotidine (Pepcid) 20 mg PO BID [facility] Last Admin: 01/21/17 10:04 Dose: 20 mg Cefepime HCl (Maxipime Iv 1 Gm Premix) 1 gm in 50 mls @ 100 mls/hr IVPB Q12H [facility] Last Admin: 01/21/17 10:58 Dose: 100 mls/hr Naproxen (Anaprox Ds) 550 mg PO BID [facility] Last Admin: 01/21/17 10:04 Dose: 550 mg Neomycin/Polymyxin/Hydrocortisone (Cortisporin Otic Soln) 4 drop AU QID [facility] Last Admin: 01/21/17 13:46 Dose: 4 drop Promethazine HCl/Dextromethorphan (Phenergan Dm Syrup) 10 ml PO Q6 [facility] Last Admin: 01/21/17 11:01 Dose: 10 ml - Labs Labs: 01/21/17 06:42 01/21/17 06:42 PT 13.2 SECONDS (9.7-12.2) H 01/14/17 17:13 INR 1.2 01/14/17 17:13 APTT 25 SECONDS (21-34) 01/14/17 17:13
--- NOTE | 2017-01-21 19:15 | CP.PCM.PN ---
Subjective - Date & Time of Evaluation Date of Evaluation: 01/21/17 Time of Evaluation: 10:20 - Subjective Subjective: clinically same Objective - Vital Signs/Intake and Output Vital Signs (last 24 hours): Temp Pulse Resp BP Pulse Ox 97.9 F 50 L 20 127/91 H 98 01/21/17 16:00 01/21/17 16:00 01/21/17 16:00 01/21/17 16:00 01/21/17 16:00 - Medications Medications: Current Medications Acetaminophen (Tylenol 325mg Tab) 650 mg PO Q6 PRN PRN Reason: Fever >100.4 F Albuterol/Ipratropium (Duoneb 3 Mg/0.5 Mg (3 Ml) Ud) 3 ml INH RQ6 [facility] Last Admin: 01/21/17 13:18 Dose: Not Given Benzocaine/Menthol (Cepacol Sore Throat) 1 sandor MT Q6H PRN PRN Reason: Sore Throat Carbamide Peroxide (Debrox Ear Drops) 0 ml AU BID [facility] Last Admin: 01/21/17 13:47 Dose: 1 drop Enoxaparin Sodium (Lovenox) 40 mg SC DAILY [facility] Last Admin: 01/21/17 10:04 Dose: 40 mg Famotidine (Pepcid) 20 mg PO BID [facility] Last Admin: 01/21/17 10:04 Dose: 20 mg Cefepime HCl (Maxipime Iv 1 Gm Premix) 1 gm in 50 mls @ 100 mls/hr IVPB Q12H [facility] Last Admin: 01/21/17 10:58 Dose: 100 mls/hr Naproxen (Anaprox Ds) 550 mg PO BID [facility] Last Admin: 01/21/17 10:04 Dose: 550 mg Neomycin/Polymyxin/Hydrocortisone (Cortisporin Otic Soln) 4 drop AU QID [facility] Last Admin: 01/21/17 13:46 Dose: 4 drop Promethazine HCl/Dextromethorphan (Phenergan Dm Syrup) 10 ml PO Q6 [facility] Last Admin: 01/21/17 11:01 Dose: 10 ml - Labs Labs: 01/21/17 06:42 01/21/17 06:42 PT 13.2 SECONDS (9.7-12.2) H 01/14/17 17:13 INR 1.2 01/14/17 17:13 APTT 25 SECONDS (21-34) 01/14/17 17:13 Assessment and Plan (1) Leukocytosis Status: Acute (2) Pneumonia Status: Acute (3) Acute frontal sinusitis Status: Acute (4) Anemia Status: Acute (5) CLL (chronic lymphocytic leukemia) Status: Acute (6) Chronic lymphocytic leukemia Status: Acute (7) Dehydration Status: Acute (8) Dyspnea Status: Acute (9) Facial abscess Status: Acute (10) Facial asymmetry Status: Acute (11) HTN (hypertension) Status: Acute (12) Leukopenia Status: Acute (13) Lymphoma Status: Acute (14) Neutropenic sepsis Status: Acute (15) Pruritic rash Status: Acute (16) Submandibular lymphadenitis Status: Acute (17) Submandibular lymphadenopathy Status: Acute
--- NOTE | 2017-01-21 23:58 | PN ---
SUBJECTIVE: The patient is afebrile and he still has hearing loss, which is acute on this admission he says and I am very concerned at this, ENT needs to follow up. I did try to put him on Cortisporin ear drops, but not sure if that is the solution. PHYSICAL EXAMINATION: VITAL SIGNS: T-max is 97.9, pulse is 50, blood pressure 127/91, respirations are 20. He wants to go home tomorrow. HEENT: Head is atraumatic and normocephalic. NECK: Supple. LUNGS: Clear. No crackles or rales present. HEART: S1, S2 is regular. ABDOMEN: Soft, nontender. No guarding, no rigidity present. EXTREMITIES: No edema, clubbing or cyanosis. 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 He needs to be followed up. He is on cefepime. LABORATORY DATA: His white count is 8.1, hemoglobin is 11.6, hematocrit 34.7, and platelet count is 276. BUN is 14, creatinine is 1.1. He has received antibiotic from , so he is on 7 days. He will be completing tomorrow. I would sent him on Vantin 200 b.i.d. for another one week, 4 to 7 days and he needs to follow with ENT for deafness, and if it is wax, that should be removed. Otherwise, the CAT scan was noted, which talked about otitis media and some cholesteatoma. His chest x-ray followed up and the last chest x-ray showed some improvement. Last x-ray showed mild, but increased markings, probably he does not have much, he can probably go home on oral antibiotics. Chino Katz MD
[2017-01-22] MEDS: Promethazine DM 12.5 mg-30 mg/10 ml Syrup PO SCH ×5 (00:35→23:51)
[2017-01-22] MEDS: Albuterol-Ipratrop 3 mg / 0.5 (3 ml) UD INH SCH ×4 (01:21→20:39)
[2017-01-22 06:38] LABS: BASO % 0.3 % (0.0-2.0); EOS # 0.3 K/uL (0.0-0.7); EOS % 2.9 % (0.0-4.0); HEMATOCRIT 35.3 % (35.0-51.0); LYMPH % 64.1 % (20.0-40.0); MEAN CELL VOLUME 87.7 fL (80.0-94.0); MEAN CORPUSCULAR HEMOGLOBIN 29.6 pg (27.0-31.0); MEAN CORPUSCULAR HGB CONC 33.8 g/dL (33.0-37.0); MEAN PLATELET VOLUME 7.5 fL (7.2-11.7); MONO # 0.3 K/uL (0.0-0.8); MONO % 3.3 % (0.0-10.0); NRBC % 0.1 % (0.0-2.0); WHITE BLOOD COUNT 9.4 K/uL (4.8-10.8)
[2017-01-22 07:28] LABS: ALKALINE PHOSPHATASE 46 U/L (38-126); ALT/SGPT 50 U/L (21-72); AST/SGOT 32 U/L (17-59); BILIRUBIN,TOTAL 0.7 mg/dL (0.2-1.3); BLOOD UREA NITROGEN 14 mg/dL (9-20); CALCIUM 8.2 mg/dl (8.6-10.4); CARBON DIOXIDE 26 mmol/L (22-30); CHLORIDE 102 mmol/L (98-107); GFR AFRICAN-AMERICAN > 60; GLUCOSE,RANDOM 77 mg/dL (75-110); MAGNESIUM 1.8 mg/dL (1.6-2.3); PHOSPHOROUS 3.9 mg/dL (2.5-4.5); POTASSIUM 4.4 mmol/L (3.6-5.2); SODIUM 133 mmol/L (132-148); TOTAL PROTEIN 5.2 g/dL (6.3-8.3)
[2017-01-22 07:57] LABS: ALB/GLOB RATIO 1.4 (1.0-2.1)
[2017-01-22] MEDS: Enoxaparin 40 mg Syringe SC SCH (09:45)
[2017-01-22] MEDS: Naproxen 550 mg Tab PO SCH ×2 (09:45→18:30)
[2017-01-22] MEDS: Neomycin/Polymyxin/Hydrocort Otic Soln BOTTLE AU SCH ×4 (09:46→21:45)
[2017-01-22] MEDS: Cefepime IV 1 gm in Dextrose 1 GM/50 ML BAG IVPB SCH ×2 (13:29→22:30)
--- NOTE | 2017-01-22 16:58 | CP.PCM.PN ---
Subjective - Date & Time of Evaluation Date of Evaluation: 01/22/17 Objective - Vital Signs/Intake and Output Vital Signs (last 24 hours): Temp Pulse Resp BP Pulse Ox 98 F 51 L 20 125/70 98 01/22/17 15:33 01/22/17 15:33 01/22/17 15:33 01/22/17 15:33 01/22/17 15:33 Intake and Output: 01/22/17 01/22/17 06:59 18:59 Intake Total 520 Output Total 1 Balance 519 - Medications Medications: Current Medications Acetaminophen (Tylenol 325mg Tab) 650 mg PO Q6 PRN PRN Reason: Fever >100.4 F Albuterol/Ipratropium (Duoneb 3 Mg/0.5 Mg (3 Ml) Ud) 3 ml INH RQ6 [facility] Last Admin: 01/22/17 13:40 Dose: Not Given Benzocaine/Menthol (Cepacol Sore Throat) 1 sandor MT Q6H PRN PRN Reason: Sore Throat Last Admin: 01/22/17 09:45 Dose: 1 sandor Carbamide Peroxide (Debrox Ear Drops) 0 ml AU BID [facility] Last Admin: 01/22/17 09:46 Dose: 5 drop Famotidine (Pepcid) 20 mg PO BID [facility] Last Admin: 01/22/17 09:45 Dose: 20 mg Cefepime HCl (Maxipime Iv 1 Gm Premix) 1 gm in 50 mls @ 100 mls/hr IVPB Q12H [facility] Last Admin: 01/22/17 13:29 Dose: 100 mls/hr Naproxen (Anaprox Ds) 550 mg PO BID [facility] Last Admin: 01/22/17 09:45 Dose: 550 mg Neomycin/Polymyxin/Hydrocortisone (Cortisporin Otic Soln) 4 drop AU QID [facility] Last Admin: 01/22/17 13:30 Dose: 4 drop Promethazine HCl/Dextromethorphan (Phenergan Dm Syrup) 10 ml PO Q6 [facility] Last Admin: 01/22/17 13:30 Dose: 10 ml - Labs Labs: 01/22/17 06:28 01/22/17 06:28 PT 13.2 SECONDS (9.7-12.2) H 01/14/17 17:13 INR 1.2 01/14/17 17:13 APTT 25 SECONDS (21-34) 01/14/17 17:13 Assessment and Plan (1) Leukocytosis Status: Acute (2) Pneumonia Status: Acute (3) Acute frontal sinusitis Status: Acute (4) Anemia Status: Acute (5) CLL (chronic lymphocytic leukemia) Status: Acute (6) Chronic lymphocytic leukemia Status: Acute (7) Dehydration Status: Acute (8) Dyspnea Status: Acute (9) Facial abscess Status: Acute (10) Facial asymmetry Status: Acute (11) HTN (hypertension) Status: Acute (12) Leukopenia Status: Acute (13) Lymphoma Status: Acute (14) Neutropenic sepsis Status: Acute (15) Pruritic rash Status: Acute (16) Submandibular lymphadenitis Status: Acute (17) Submandibular lymphadenopathy Status: Acute
[2017-01-23 01:06] VITALS: O2SAT 97
[2017-01-23] MEDS: Albuterol-Ipratrop 3 mg / 0.5 (3 ml) UD INH SCH ×3 (01:14→14:35)
[2017-01-23] MEDS: Promethazine DM 12.5 mg-30 mg/10 ml Syrup PO SCH ×3 (06:46→17:29)
[2017-01-23 06:57] LABS: BASO % 0.5 % (0.0-2.0); EOS # 0.2 K/uL (0.0-0.7); EOS % 2.3 % (0.0-4.0); HEMATOCRIT 36.2 % (35.0-51.0); LYMPH # 5.9 K/uL (1.0-4.3); LYMPH % 60.8 % (20.0-40.0); MEAN CELL VOLUME 88.1 fL (80.0-94.0); MEAN CORPUSCULAR HEMOGLOBIN 30.5 pg (27.0-31.0); MEAN CORPUSCULAR HGB CONC 34.7 g/dL (33.0-37.0); MEAN PLATELET VOLUME 8.1 fL (7.2-11.7); MONO # 0.3 K/uL (0.0-0.8); MONO % 2.6 % (0.0-10.0); NRBC % 0.4 % (0.0-2.0); PLATELET COUNT 282 K/uL (130-400); RED CELL DISTRIBUTION WIDTH 14.1 % (11.5-14.5); WHITE BLOOD COUNT 9.6 K/uL (4.8-10.8)
[2017-01-23 07:32] LABS: ALKALINE PHOSPHATASE 52 U/L (38-126); ALT/SGPT 47 U/L (21-72); AST/SGOT 28 U/L (17-59); BILIRUBIN,TOTAL 0.6 mg/dL (0.2-1.3); BLOOD UREA NITROGEN 15 mg/dL (9-20); CALCIUM 8.1 mg/dl (8.6-10.4); CARBON DIOXIDE 26 mmol/L (22-30); CHLORIDE 101 mmol/L (98-107); GFR AFRICAN-AMERICAN > 60; GLUCOSE,RANDOM 80 mg/dL (75-110); MAGNESIUM 1.9 mg/dL (1.6-2.3); PHOSPHOROUS 4.4 mg/dL (2.5-4.5); POTASSIUM 4.5 mmol/L (3.6-5.2); SODIUM 134 mmol/L (132-148); TOTAL PROTEIN 5.4 g/dL (6.3-8.3)
[2017-01-23 07:44] LABS: ALB/GLOB RATIO 1.4 (1.0-2.1)
[2017-01-23 09:54] LABS: BASOPHIL 1 % (0-2); EOSINOPHIL 7 % (0-4); LARGE PLATELETS PRESENT; NEUTROPHIL 38 % (50-75); REACTIVE LYMPHOCYTES 12 % (0-0); TOTAL CELLS COUNTED 100
[2017-01-23 09:55] LABS: SMUDGE CELLS PRESENT
--- NOTE | 2017-01-23 10:12 | CP.PCM.PN ---
Subjective - Date & Time of Evaluation Date of Evaluation: 01/23/17 Time of Evaluation: 07:55 - Subjective Subjective: PGY2 Resident - Medicine Progress Note Patient seen and examined at bedside. No acute distress. No overnight events. Cough resolved. Patient denies R ear pain. Hearing in R ear continues to be decreased, however Debrox helping (cerumen impaction R > L). Denies fever, chills, headache, changes in vision, chest pain, palpitations, dyspnea, abdominal pain, nausea/vomiting, diarrhea/constipation, or any additional acute complaints. Patient is stable for discharge per Dr. Mayra Finch. 1. Patient should resume all medications as outlined in this document. Additionally, patient should take the new medications listed below (scripts provided). 2. Please make an appointment and follow up with your Primary Doctor Dr. Ryan Finch , within one week of discharge. 3. 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 4. Patient to continue OTC Debrox bilaterally for 5 days. Please have your ears evaluated by your primary doctor. Patient should return to ED immediately if symptoms return or worsen. Instructions discussed with patient who understood and agreed. Newly prescribed medications: Augmentin 875mg PO Q12H #14 Continue with OTC Debrox ear drops for 5 days Continue with Cortisporin Otic solution for 5 days Objective - Vital Signs/Intake and Output Vital Signs (last 24 hours): Temp Pulse Resp BP Pulse Ox 98.3 F 58 L 20 124/77 97 01/23/17 09:27 01/23/17 09:27 01/23/17 09:27 01/23/17 09:27 01/23/17 09:27 Intake and Output: 01/23/17 01/23/17 06:59 18:59 Intake Total 650 Balance 650 - Medications Medications: Current Medications Acetaminophen (Tylenol 325mg Tab) 650 mg PO Q6 PRN PRN Reason: Fever >100.4 F Albuterol/Ipratropium (Duoneb 3 Mg/0.5 Mg (3 Ml) Ud) 3 ml INH RQ6 [facility]ST[facility] Last Admin: 01/23/17 01:14 Dose: Not Given Benzocaine/Menthol (Cepacol Sore Throat) 1 sandor MT Q6H PRN PRN Reason: Sore Throat Last Admin: 01/22/17 09:45 Dose: 1 sandor Carbamide Peroxide (Debrox Ear Drops) 0 ml AU BID [facility] Last Admin: 01/22/17 18:51 Dose: 5 drop Famotidine (Pepcid) 20 mg PO BID [facility] Last Admin: 01/22/17 18:45 Dose: 20 mg Cefepime HCl (Maxipime Iv 1 Gm Premix) 1 gm in 50 mls @ 100 mls/hr IVPB Q12H [facility] Last Admin: 01/22/17 22:30 Dose: 100 mls/hr Naproxen (Anaprox Ds) 550 mg PO BID [facility] Last Admin: 01/22/17 18:30 Dose: 550 mg Neomycin/Polymyxin/Hydrocortisone (Cortisporin Otic Soln) 4 drop AU QID [facility] Last Admin: 01/22/17 21:45 Dose: 4 drop Promethazine HCl/Dextromethorphan (Phenergan Dm Syrup) 10 ml PO Q6 [facility] Last Admin: 01/23/17 06:46 Dose: 10 ml - Labs Labs: 01/23/17 06:45 01/23/17 06:45 PT 13.2 SECONDS (9.7-12.2) H 01/14/17 17:13 INR 1.2 01/14/17 17:13 APTT 25 SECONDS (21-34) 01/14/17 17:13 - Additional Findings Additional findings: - Constitutional Appears: Non-toxic, No Acute Distress - Head Exam Head Exam: ATRAUMATIC, NORMAL INSPECTION, NORMOCEPHALIC - Eye Exam Eye Exam: EOMI, Normal appearance - ENT Exam ENT Exam: Mucous Membranes Moist Note: No tenderness to palpation of b/l mastoid processes. No tenderness with traction of b/l ears. Tympanic membrane clear / intact. Cerumen impaction in bilateral ears R > L. - Neck Exam Neck Exam: Full ROM, Normal Inspection - Respiratory Exam Respiratory Exam: Rhonchi (mild). absent: Clear to Ausculation Bilateral, NORMAL BREATHING PATTERN - Cardiovascular Exam Cardiovascular Exam: Regular Rate, +S1, +S2 - GI/Abdominal Exam GI & Abdominal Exam: Soft, Normal Bowel Sounds. absent: Tenderness - Neurological Exam Neurological Exam: Alert, Awake, Oriented x3 - Psychiatric Exam Psychiatric exam: Normal Affect, Normal Mood - Skin Skin Exam: Dry, Intact, Normal Color, Warm Assessment and Plan - Assessment and Plan (Free Text) Assessment: 76yo M admitted for Community Acquired Pneumonia which is resolving Community acquired pna;resolving 01/23: WBC 9.6; patient CTA; afebrile; saturating well. 01/21: patient CTA, no SOB, no complaints. Cough resolved. 01/20: CXR showing mild venous congestion Cefepime 1Gm IVPB Q12H (started 01/14). Patient is CTA saturating well on room air -Continue Phenergan for cough. -CXR 01/14 - opacity at R lung base, possible RLL pneumonia; much improved on portable chest -continue cefepime 1 g q 12 (start date 01/14) as per ID; Dr. Katz -continue duonebs RQ6 KRISTEN -blood cultures negative x5days -urine cultures negative -sputum cultures negative -urine strep/mycoplasma negative -Flu negative -ESR elevated -serum procalcitonin 3.65 H -tylenol prn for pain Ear pain/throat pain;resolved Continue IV Abx above to cover for possible R otitis media/R mastoid effusion. Cepacol lozenges. -ENT consult. Dr. Dejesus. recs appreciated: NTd at this time -ID consult. Dr. Katz. recs appreciated. -CT facial bones - R otitis media; R mastoid effusion (see full report) -recommend warm compress of right TMJ + soft diet Cerumen Impaction (R greater than L) 01/23: Continue with Debrox drops in b/l ears. Pt reports mild improvement in hearing in R ear (L ear ok). 01/21: Debrox BID - 5-10 drop in each ear Leukocytosis; resolved 01/19: WBC 8, resolved. -continue to monitor hx of CLL 01/21: Pt seen by Dr. Chapman, CLL in remission, to see Dr. Gray as outpatient. 01/19: Dr. Gray cannot see pt. Will be seen by Dr. Chapman, help appreciated. -Dr. Gray consult. recs appreciated. GI/DVT ppx -lovenox 40 -protonix daily Disposition: Stable for DC in the morning 01/22. Home transportation to be arranged by case/social (discussed). 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 Patient to continue OTC Debrox bilaterally for 5 days. Patient to continue PO antibiotics. All management as per Dr. Ryan Finch
[2017-01-23] MEDS: Naproxen 550 mg Tab PO SCH ×2 (10:46→17:28)
[2017-01-23] MEDS: Neomycin/Polymyxin/Hydrocort Otic Soln BOTTLE AU SCH ×3 (10:48→17:28)
[2017-01-23] MEDS: Cefepime IV 1 gm in Dextrose 1 GM/50 ML BAG IVPB SCH (11:34)
--- NOTE | 2017-01-23 14:34 | CP.PCM.PN ---
Subjective - Date & Time of Evaluation Date of Evaluation: 01/23/17 Time of Evaluation: 02:30 - Subjective Subjective: dictated Objective - Vital Signs/Intake and Output Vital Signs (last 24 hours): Temp Pulse Resp BP Pulse Ox 98.3 F 58 L 20 124/77 97 01/23/17 09:27 01/23/17 09:27 01/23/17 09:27 01/23/17 09:27 01/23/17 09:27 Intake and Output: 01/23/17 01/23/17 06:59 18:59 Intake Total 650 Balance 650 - Medications Medications: Current Medications Acetaminophen (Tylenol 325mg Tab) 650 mg PO Q6 PRN PRN Reason: Fever >100.4 F Albuterol/Ipratropium (Duoneb 3 Mg/0.5 Mg (3 Ml) Ud) 3 ml INH RQ6 [facility] Last Admin: 01/23/17 01:14 Dose: Not Given Benzocaine/Menthol (Cepacol Sore Throat) 1 sandor MT Q6H PRN PRN Reason: Sore Throat Last Admin: 01/22/17 09:45 Dose: 1 sandor Carbamide Peroxide (Debrox Ear Drops) 0 ml AU BID [facility] Last Admin: 01/23/17 10:49 Dose: 5 drop Famotidine (Pepcid) 20 mg PO BID [facility] Last Admin: 01/23/17 10:46 Dose: 20 mg Cefepime HCl (Maxipime Iv 1 Gm Premix) 1 gm in 50 mls @ 100 mls/hr IVPB Q12H [facility] Last Admin: 01/23/17 11:34 Dose: 100 mls/hr Naproxen (Anaprox Ds) 550 mg PO BID [facility] Last Admin: 01/23/17 10:46 Dose: 550 mg Neomycin/Polymyxin/Hydrocortisone (Cortisporin Otic Soln) 4 drop AU QID [facility] Last Admin: 01/23/17 13:57 Dose: 4 drop Promethazine HCl/Dextromethorphan (Phenergan Dm Syrup) 10 ml PO Q6 [facility] Last Admin: 01/23/17 11:37 Dose: 10 ml - Labs Labs: 01/23/17 06:45 01/23/17 06:45 PT 13.2 SECONDS (9.7-12.2) H 01/14/17 17:13 INR 1.2 11/15/17 17:13 APTT 25 SECONDS (21-34) 01/14/17 17:13
[2017-01-23 17:14] VITALS: BP 110/66; RESP 16; TEMP 98.1
--- NOTE | 2017-01-23 17:55 | CP.PCM.PN ---
Subjective - Date & Time of Evaluation Date of Evaluation: 01/23/17 Time of Evaluation: 10:00 - Subjective Subjective: clinically same Objective - Vital Signs/Intake and Output Vital Signs (last 24 hours): Temp Pulse Resp BP Pulse Ox 98.1 F 70 16 110/66 97 01/23/17 15:00 01/23/17 15:00 01/23/17 15:00 01/23/17 15:00 01/23/17 15:00 Intake and Output: 01/23/17 01/23/17 06:59 18:59 Intake Total 650 550 Balance 650 550 - Labs Labs: 01/23/17 06:45 01/23/17 06:45 PT 13.2 SECONDS (9.7-12.2) H 01/14/17 17:13 INR 1.2 01/14/17 17:13 APTT 25 SECONDS (21-34) 01/14/17 17:13 - Constitutional Appears: Well - Head Exam Head Exam: ATRAUMATIC, NORMAL INSPECTION, NORMOCEPHALIC - Eye Exam Eye Exam: EOMI, Normal appearance, PERRL Pupil Exam: NORMAL ACCOMODATION, PERRL - ENT Exam ENT Exam: Mucous Membranes Moist, Normal Exam - Neck Exam Neck Exam: Full ROM, Normal Inspection. absent: Lymphadenopathy - Respiratory Exam Respiratory Exam: Decreased Breath Sounds - Cardiovascular Exam Cardiovascular Exam: REGULAR RHYTHM, +S1, +S2 - GI/Abdominal Exam GI & Abdominal Exam: Soft, Diminished Bowel Sounds - Rectal Exam Rectal Exam: Deferred Assessment and Plan (1) Leukocytosis Status: Acute (2) Pneumonia Status: Acute (3) Acute frontal sinusitis Status: Acute (4) Anemia Status: Acute (5) CLL (chronic lymphocytic leukemia) Status: Acute (6) Chronic lymphocytic leukemia Status: Acute (7) Dehydration Status: Acute (8) Dyspnea Status: Acute (9) Facial abscess Status: Acute (10) Facial asymmetry Status: Acute (11) HTN (hypertension) Status: Acute (12) Leukopenia Status: Acute (13) Lymphoma Status: Acute (14) Neutropenic sepsis Status: Acute (15) Pruritic rash Status: Acute (16) Submandibular lymphadenitis Status: Acute (17) Submandibular lymphadenopathy Status: Acute
--- NOTE | 2017-01-23 20:01 | PN ---
INFECTIOUS DISEASE FOLLOWUP DATE: PHYSICAL EXAMINATION: VITAL SIGNS: T-max is 98.1, pulse 70, blood pressure 110/66, respirations 16. GENERAL: The patient is feeling better. HEENT: Head is atraumatic, normocephalic. His ear still remains with deafness. I told him to follow with the ENT. NECK: Supple. LUNGS: Clear. No crackles or rales present. HEART: S1 and S2 regular. ABDOMEN: Soft, nontender. No guarding. No rigidity present. EXTREMITIES: Have no edema. He had a pneumonia, which is better and he has otitis media, he is on Neosporin. He received antibiotics for 10 days. He is an elderly male. I would not give antibiotics for more days, need to follow with the ENT, and he can be discharged from Infectious Diseases point of view. Chino Katz MD
[2017-01-23 20:44] VITALS: PULSE 65
== END 2017-01-23 17:33 | disposition home or self-care (01) | DRG 871 ==
LOC: C.ER 16:00 → C.9E 17:39 → C.6T 19:04
PROVIDERS: ADMIT Internal Medicine Nephrology; ATTEND Internal Medicine Nephrology
DX: A41.9 Sepsis, unspecified organism (principal); J18.9 Pneumonia, unspecified organism; C85.90 Non-Hodgkin lymphoma, unspecified, unspecified site; L02.01 Cutaneous abscess of face; E86.0 Dehydration; D64.9 Anemia, unspecified; D70.3 Neutropenia due to infection; C91.11 Chronic lymphocytic leukemia of B-cell type in remission; I10 Essential (primary) hypertension; J01.10 Acute frontal sinusitis, unspecified; D72.819 Decreased white blood cell count, unspecified; I88.9 Nonspecific lymphadenitis, unspecified; L29.9 Pruritus, unspecified; H66.91 Otitis media, unspecified, right ear